=== PATIENT | female | born 1945 | race Caucasian/White ===

== ENCOUNTER → 2017-04-24 | Outpatient (CLI) | payer OTHER ==
--- NOTE | 2017-04-24 15:33 | DIAGNOSTIC IMAGING REPORT ---
RIGHT LOWER EXTREMITY VENOUS DOPPLER CLINICAL HISTORY: Right calf pain. COMPARISON STUDY: Right lower extremity venous Doppler January 08 2014. TECHNIQUE: Sonography of the deep venous system of the right lower extremity was performed. Compression and augmentation were evaluated. FINDINGS: The right common femoral, superficial femoral and popliteal veins were compressible. Augmentation was normal. Flow was shown within the deep calf vessels. Nonocclusive superficial thrombus is noted within the right lesser saphenous vein. When correlating with prior exam of January 08, 2014, this likely reflects chronic thrombus. This is likely partially calcified. IMPRESSION: 1. No evidence of deep venous thrombus within the right lower extremity. 2. Nonocclusive superficial thrombus within the right lesser saphenous vein which is likely chronic. Electronically signed by: Bertram Howell M.D. 04/24/2017 3:31 PM Dictated Date/Time: 04/24/2017 3:29 PM
== END | disposition home or self-care (01) ==
LOC: C.ULTRBC 15:01
PROVIDERS: ATTEND Internal Medicine
DX: M79.661 Pain in right lower leg (principal); I82.811 Embolism and thrombosis of superficial veins of right lower extremity

== ENCOUNTER → 2017-07-01 | Outpatient (CLI) | payer OTHER ==
--- NOTE | 2017-07-01 14:11 | MAMMOGRAPHY REPORT ---
BILATERAL DIGITAL SCREENING MAMMOGRAM TOMOSYNTHESIS WITH CAD: 07/01/2017 CLINICAL HISTORY: Routine screening. TECHNIQUE: Breast tomosynthesis in addition to standard 2D mammography was performed. Current study was also evaluated with a Computer Aided Detection (CAD) system. COMPARISON: Comparison is made to exams dated: 06/25/2016 mammogram, 06/19/2015 mammogram, 06/16/2014 mammogram, 06/15/2013 mammogram, 06/14/2012 mammogram, and 06/11/2011 mammogram - [facility]. BREAST COMPOSITION: There are scattered areas of fibroglandular density in both breasts. FINDINGS: There are benign rim calcifications and mild vascular calcifications in the breasts. Stab le asymmetry in the medial right breast, which appears similar on all available prior mammograms dati ng back to at least 2009, therefore likely benign. No new suspicious mass, architectural distortion or cluster of microcalcifications is seen. IMPRESSION: ACR BI-RADS CATEGORY 1: NEGATIVE There is no mammographic evidence of malignancy. A 1 year screening mammogram is recommended. The pa tient will receive written notification of the results. Approximately 10% of breast cancers are not detected with mammography. A negative mammographic report should not delay biopsy if a clinically suggestive mass is present. Monica Sparks M.D. ay/:07/01/2017 12:30:17 [employer]: Young BAH(R)(M), [facility] letter sent: Normal 1/2 BI-RADS Code: ACR BI-RADS Category 1: Negative
== END | disposition home or self-care (01) ==
LOC: C.MAMM 10:41
PROVIDERS: ATTEND Family Medicine
DX: Z12.31 Encounter for screening mammogram for malignant neoplasm of breast (principal)

== ENCOUNTER 2024-08-12 20:07 | Inpatient (IN) ==
[2024-08-12 20:46] LABS: Hematocrit (blood only) 38.3 % (37.0-47.0); Hemoglobin 13.2 g/dl (12.0-16.0); Mean Corpuscular Hemoglobin 29.3 pg (25.0-34.0); Mean Corpuscular Hgb Conc 34.5 g/dL (32.0-36.0); Mean Corpuscular Volume 84.9 fL (80.0-100.0); Mean Platelet Volume 10.8 fL (9.4-12.4); Platelet Count 272 K/uL (130-400); RDW Coefficient of Variation 13.1 % (11.5-14.5); RDW Standard Deviation 40.3 fL (36.4-46.3); Red Blood Count 4.51 M/uL (4.20-5.40); White Blood Count 20.17 K/ul (4.8-10.8)
[2024-08-12 20:57] LABS: Albumin Globulin Ratio 1.6 (0.9-2); Albumin Level 4.5 gm/dl (3.4-5.0); BUN Creatinine Ratio 21.7 (10-20); Bilirubin,Total 0.8 mg/dl (0.2-1.0); Creatinine Clr Calc Pharmacy 55.7 ml/min; Globulin 2.9 gm/dl (2.5-4.0); Potassium 3.8 mmol/L (3.5-5.1); Total Protein 7.4 gm/dl (6.0-8.3)
[2024-08-12 21:02] LABS: Basophils # (auto) 0.03 K/uL (0.00-0.20); Basophils % (auto) 0.1 %; Eosinophils # (auto) 0.05 K/uL (0.00-0.50); Eosinophils % (auto) 0.2 %; Immature Granulocytes # (auto) 0.05 K/uL (0.01-0.20); Immature Granulocytes % (auto) 0.2 %; Lymphocytes # (auto) 0.69 K/uL (1.20-3.40); Lymphocytes % (auto) 3.4 %; Monocytes # (auto) 0.91 K/uL (0.11-0.59); Monocytes % (auto) 4.5 %; Neutrophils # (auto) 18.44 K/uL (1.40-6.50); Neutrophils % (auto) 91.6 %
[2024-08-12 21:22] LABS: Partial Thromboplastin Ratio 0.9; Partial Thromboplastin Time 25 Seconds (21-31); Prothrombin Time 10.6 Seconds (9.0-12.0)
[2024-08-12 21:50] LABS: Magnesium 1.3 mg/dl (1.7-2.4)
[2024-08-12 21:54] LABS: Adenovirus PCR Not Detected (NotDetected); Bordetella parapertussis PCR Not Detected (NotDetected); Bordetella pertussis PCR Not Detected (NotDetected); Chlamydia pneumoniae PCR Not Detected (NotDetected); Coronavirus 229E PCR Not Detected (NotDetected); Coronavirus CoV-2 (COVID19)PCR DETECTED (NotDetected); Coronavirus HKU1 PCR Not Detected (NotDetected); Coronavirus NL63 PCR Not Detected (NotDetected); Coronavirus OC43PCR Not Detected (NotDetected); Human Metapneumovirus PCR Not Detected (NotDetected); Influenza A PCR Not Detected (NotDetected); Influenza B PCR Not Detected (NotDetected); Mycoplasma pneumoniae PCR Not Detected (NotDetected); Parainfluenza Virus 1 PCR Not Detected (NotDetected); Parainfluenza Virus 2 PCR Not Detected (NotDetected); Parainfluenza Virus 3 PCR Not Detected (NotDetected); Parainfluenza Virus 4 PCR Not Detected (NotDetected); Respiratory Syncytial VirusPCR Not Detected (NotDetected); Rhinovirus/Enterovirus PCR Not Detected (NotDetected)
[2024-08-12 22:06] LABS: Thyroid Stimulating Hormone 2.614 uIu/ml (0.300-4.500)
[2024-08-12] MEDS: FAMOTIDINE 20MG IV PUSH 20 MG/5 ML SYR IV STA (22:43)
[2024-08-12] MEDS: SODIUM CHLORIDE 0.9% 500 ML IV ONE (22:43)
[2024-08-12] MEDS: ONDANSETRON INJ 2 MG/ML 2 ML VIAL IV STA (22:43)
--- NOTE | 2024-08-12 22:48 | XRay Report ---
Exam(s): XR CXR 1 VIEW EXAM: XR Chest, 1 View CLINICAL HISTORY: Reason for exam: Chest pain, nonspecific. TECHNIQUE: Frontal view of the chest. COMPARISON: No relevant prior studies available. FINDINGS: Lungs: Unremarkable. No consolidation. Pleural space: Unremarkable. No pleural effusion or pneumothorax. Heart: Unremarkable. No cardiomegaly or pulmonary vascular congestion. Bones/joints: No acute fracture. No dislocation. IMPRESSION: No evidence of acute cardiopulmonary disease. Electronically signed by: Lani Lindquist M.D. 08/12/24 22:46 PM
[2024-08-12] MEDS: PIPERACILLIN/TAZOBACTAM 4.5 GM/100 ML BAG IV ONE (22:58)
--- NOTE | 2024-08-12 23:04 | Emergency Department Note ---
ED Visit Note The patient was seen and examined with saranya. I performed a substantive portion of all aspects of the medical decision making and agree with the h istory, physical and findings. Please see the note for disposition and details. . .
[2024-08-12] MEDS: OPTIRAY 320 125ml IV ONE (23:13)
--- NOTE | 2024-08-12 23:52 | Emergency Department Note ---
History of Present Illness General Chief complaint: Flu Like Symptoms Stated complaint: NAUSEA,COVID POSITIVE Time Seen by Provider: 08/12/24 21:28 History of Present Illness This 79-year-old female with a past medical history of hypothyroidism, acid reflux disease, hypercholesterolemia, hypertension and diabetes presents ER complaining cough, congestion for the past several days to develop nausea vomiting upset stomach tonight. Patient denies chest pain, diarrhea, headache. She felt sick to her stomach and came in. Home Medications Medication Instructions Recorded Confirmed Type aspirin 325 mg tablet 325 mg PO DAILY #30 tabs 11/01/20 11/01/20 Rx clobetasol 0.05 % scalp solution 1 applic topical BID 2 weeks #50 mL 11/01/20 11/01/20 Rx levothyroxine 75 mcg tablet 75 mcg PO QAM #90 tabs 11/01/20 11/01/20 Rx metformin 1,000 mg tablet 1,000 mg PO BID #180 tabs 11/01/20 11/01/20 Rx omeprazole 20 mg capsule,delayed 20 mg PO DAILY #90 caps 11/01/20 11/01/20 Rx release insulin human U-100 NPH-regulr 40 unit (0.4 mL) subcut BID 90 11/09/20 Rx 70-30 mix 100 unit/mL subcutaneous days #72 mL susp (Novolin 70/30 U-100 Insulin) lisinopril 20 1 tab PO DAILY #90 tabs 11/04/21 Rx mg-hydrochlorothiazide 25 mg tablet atorvastatin 40 mg tablet 40 mg PO HS #90 tabs 12/24/21 Rx Allergies Allergy/AdvReac Type Severity Reaction Status Date / Time sulfamethoxazole Allergy Hives Verified 11/01/20 14:52 Past Med/Surg History Problem List (Updated 08/13/24 @ 02:32 by Ifeoma Dumont PA-C) Leukocytosis (Acute) Nausea & vomiting (Acute) Hypomagnesemia (Acute) COVID-19 (Acute) Hypertension Diabetes Hypothyroidism Acid reflux Hypercholesteremia Medical History Diabetes Hypertension Surgical History History of cataract surgery S/P breast lumpectomy Family History Father Myocardial infarction Mother Ovarian cancer Denies family history of Colon cancer Prostate cancer Breast cancer Social History Smoking Status: Never smoker packs per day: 0.5; Second Hand Exposure: No; Do You Dip or Chew Tobacco: No; Hx Alcohol Use: No Hx Substance Use: No Preferred Language: Belarusian Visual Impairment: No Limitations Hearing Ability: Normal marital status: Single Current Living Situation: Other Current Living Situation Comment: Lives with a friend and ther 2 children current occupational status: employed and 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 Feels Safe at Home: Yes Dental Care, Regularly: Yes Physical Activity Frequency: 1-2 Times per Week Review of Systems A total of 10 systems reviewed and were otherwise negative Physical Exam Vital Signs Vital Signs - 24 hr 08/12/24 20:12 08/12/24 21:25 08/12/24 21:27 Temperature 37.0 C Temperature Source Oral Pulse Rate 122 H 111 H Pulse Rate [Apical] 112 H Pulse Rhythm [Apical] Pulse Strength [Apical] Respiratory Rate 16 24 Respiratory Effort / Characteristics Respiratory Depth Respiratory Pattern Blood Pressure 160/88 H Blood Pressure [Right Arm] 150/76 H Blood Pressure Mean 112 Blood Pressure Mean [Right Arm] 100 Blood Pressure Position [Right Arm] Semi-fowlers Pulse Oximetry 94 97 Oxygen Delivery Method Room Air Room Air Sepsis Recent Fever Within 48 Hours No Sepsis New/Unexplained Change in Mental Status No Sepsis Action Taken by Nursing No Action Required Oxygen Flow Rate - Titration Pulse Oximetry Post Tiitration 08/12/24 21:27 08/12/24 21:27 08/12/24 22:26 Temperature Temperature Source Pulse Rate 112 H Pulse Rate [Apical] 99 H Pulse Rhythm [Apical] Pulse Strength [Apical] Respiratory Rate 24 23 Respiratory Effort / Characteristics Respiratory Depth Respiratory Pattern Blood Pressure Blood Pressure [Right Arm] 170/74 H Blood Pressure Mean Blood Pressure Mean [Right Arm] 106 Blood Pressure Position [Right Arm] Semi-fowlers Pulse Oximetry 97 97 92 Oxygen Delivery Method Room Air Room Air Room Air Sepsis Recent Fever Within 48 Hours Sepsis New/Unexplained Change in Mental Status Sepsis Action Taken by Nursing Oxygen Flow Rate - Titration Pulse Oximetry Post Tiitration 08/12/24 23:02 08/13/24 00:00 08/13/24 01:32 Temperature Temperature Source Pulse Rate 91 H Pulse Rate [Apical] 92 H Pulse Rhythm [Apical] Regular Pulse Strength [Apical] Normal Respiratory Rate 18 Respiratory Effort / Characteristics Non-Labored Spontaneous Respiratory Depth Normal Respiratory Pattern Regular Blood Pressure Blood Pressure [Right Arm] 148/72 H Blood Pressure Mean Blood Pressure Mean [Right Arm] 97 Blood Pressure Position [Right Arm] Semi-fowlers Pulse Oximetry 87 L 95 Oxygen Delivery Method Room Air Room Air Sepsis Recent Fever Within 48 Hours Sepsis New/Unexplained Change in Mental Status Sepsis Action Taken by Nursing Oxygen Flow Rate - Titration 2 Pulse Oximetry Post Tiitration 95 08/13/24 02:00 Temperature Temperature Source Pulse Rate Pulse Rate [Apical] Pulse Rhythm [Apical] Regular Pulse Strength [Apical] Normal Respiratory Rate 18 Respiratory Effort / Characteristics Non-Labored Spontaneous Respiratory Depth Normal Respiratory Pattern Regular Blood Pressure Blood Pressure [Right Arm] 120/66 Blood Pressure Mean Blood Pressure Mean [Right Arm] 84 Blood Pressure Position [Right Arm] Semi-fowlers Pulse Oximetry 96 Oxygen Delivery Method Room Air Sepsis Recent Fever Within 48 Hours Sepsis New/Unexplained Change in Mental Status Sepsis Action Taken by Nursing Oxygen Flow Rate - Titration Pulse Oximetry Post Tiitration VITALS: Vitals are noted on the nurse's note and reviewed by myself. Vital signs stable. GENERAL: Pleasant female with friend present, in no acute distress, nondiaphoretic, well-developed well-nourished. SKIN: The skin was without rashes, erythema, edema, or bruising. There is no tenting of the skin. Capillary reflex less than 2 seconds. HEAD: Normocephalic atraumatic. EARS: External auditory canals clear EYES: Pupils equal round and reactive to light and accommodation. Conjunctivae without injection, sclerae without icterus. Extraocular movements intact. NOSE: Patent, no discharge. MOUTH: Mucous membranes moist. Pharynx without erythema or exudate. Uvula midline. Airway patent. Tongue does not deviate. NECK: Supple without nuchal rigidity. No lymphadenopathy. No thyromegaly. Cervical spine is nontender. No JVD. HEART: Regular rate and rhythm LUNGS: Clear to auscultation bilaterally without wheezes, rales or rhonchi. No retractions or accessory muscle use. ABDOMEN: Positive bowel sounds x 4. Normal tympanic percussion. Soft, nontender, without masses or organomegaly. Swann sign negative. No guarding or rebound tenderness. No CVA tenderness MUSCULOSKELETAL: No muscle atrophy, erythema, or edema noted. NEURO: Patient was alert and oriented to person place and time. Normal sensation to light and sharp touch. No focal neurological deficits. Course Administered Medications Discontinued Medications Famotidine (Pepcid 20mg Iv Push) 20 mg in 5 mls @ 2.5 mls/min IV NOW STA Stop: 08/12/24 21:45 Last Admin: 08/12/24 22:43 Dose: 2.5 mls/min Documented By: DEANNA Sodium Chloride (Nss) 500 mls @ 999 mls/hr IV .Q31M ONE Stop: 08/12/24 22:14 Last Infusion: 08/13/24 00:08 Dose: Infused Documented By: Admin: 08/12/24 22:43 Dose: 999 mls/hr Documented By: DEANNA Piperacillin Sod/Tazobactam Sod (Zosyn) 4.5 gm in 100 mls @ 200 mls/hr IV NOW ONE; Protocol Stop: 08/12/24 22:20 Last Infusion: 08/13/24 00:08 Dose: Infused Documented By: Admin: 08/12/24 22:58 Dose: 200 mls/hr Documented By: DEANNA Magnesium Sulfate/Dextrose (Magnesium Sulfate / D5w) 1 gm in 100 mls @ 100 mls/hr IV Q1H SUSAN Stop: 08/13/24 01:39 Last Infusion: 08/13/24 02:26 Dose: Infused Documented By: Admin: 08/13/24 01:26 Dose: 100 mls/hr Documented By: Infusion: 08/13/24 01:26 Dose: Infused Documented By: Admin: 08/13/24 00:22 Dose: 100 mls/hr Documented By: CHEMO Ioversol (Optiray 320 125ml) 119 ml IV ONCE ONE Stop: 08/12/24 23:14 Last Admin: 08/12/24 23:13 Dose: 119 ml Documented By: UVALDO Ondansetron HCl (Ondansetron Inj 2 Mg/Ml 2 Ml Vial) 4 mg IV NOW STA Stop: 08/12/24 21:45 Last Admin: 08/12/24 22:43 Dose: 4 mg Documented By: DEANNA Medical Decision Making Medical Records Attestation: I reviewed the patient's medical records. Home Medications Current Medication List: was personally reviewed by me Laboratory Data Attestation: I reviewed the patient's lab results. 08/12/24 20:25 08/12/24 20:25 Lab Results 08/12/24 08/12/24 Range/Units 20:25 22:51 WBC 20.17 H (4.8-10.8) K/ul RBC 4.51 (4.20-5.40) M/uL Hgb 13.2 (12.0-16.0) g/dl Hct 38.3 (37.0-47.0) % MCV 84.9 (80.0-100.0) fL MCH 29.3 (25.0-34.0) pg MCHC 34.5 (32.0-36.0) g/dL RDW Std Deviation 40.3 (36.4-46.3) fL RDW Coeff of Allie 13.1 (11.5-14.5) % Plt Count 272 (130-400) K/uL MPV 10.8 (9.4-12.4) fL Immature Gran % (Auto) 0.2 % Neut % (Auto) 91.6 % Lymph % (Auto) 3.4 % [place] % (Auto) 4.5 % Eos % (Auto) 0.2 % Baso % (Auto) 0.1 % Neut # (Auto) 18.44 H (1.40-6.50) K/uL Lymph # (Auto) 0.69 L (1.20-3.40) K/uL [place] # (Auto) 0.91 H (0.11-0.59) K/uL Eos # (Auto) 0.05 (0.00-0.50) K/uL Baso # (Auto) 0.03 (0.00-0.20) K/uL Immature Gran # (Auto) 0.05 (0.01-0.20) K/uL PT 10.6 (9.0-12.0) Seconds INR 1.0 (0.9-1.1) APTT 25 (21-31) Seconds PTT Ratio 0.9 Sodium 137 (136-145) mmol/L Potassium 3.8 (3.5-5.1) mmol/L Chloride 100 (98-107) mmol/L Carbon Dioxide 26 (21-32) mmol/L Anion Gap 11 (3-11) BUN 20 (6-23) mg/dl Creatinine 0.92 (0.6-1.2) mg/dl Est Cr Clr Drug Dosing 55.7 ml/min eGFR 63.73 BUN/Creatinine Ratio 21.7 H (10-20) Glucose 148 H (70-99(Fasting)) mg/dl Lactate 1.1 (0.4-2.0) mmol/L Calcium 9.0 (8.6-10.3) mg/dl Magnesium 1.3 L (1.7-2.4) mg/dl Total Bilirubin 0.8 (0.2-1.0) mg/dl AST 11 L (13-39) U/L ALT 11 (7-52) U/L Alkaline Phosphatase 82 (34-104) U/L Troponin I High Sens 4.0 (0-14) pg/ml Total Protein 7.4 (6.0-8.3) gm/dl Albumin 4.5 (3.4-5.0) gm/dl Globulin 2.9 (2.5-4.0) gm/dl Albumin/Globulin Ratio 1.6 (0.9-2) Procalcitonin 0.09 (0-0.5) ng/ml TSH 2.614 (0.300-4.500) uIu/ml Adenovirus (PCR) Not Detected (NotDetected) B. pertussis DNA (PCR) Not Detected (NotDetected) B.parapertussis DNA PCR Not Detected (NotDetected) C. pneumoniae DNA (PCR) Not Detected (NotDetected) Coronavirus OC43 (PCR) Not Detected (NotDetected) Coronavirus HKU1 (PCR) Not Detected (NotDetected) Coronavirus 229E (PCR) Not Detected (NotDetected) SARS-CoV-2 (PCR) DETECTED A (NotDetected) Coronavirus NL63 (PCR) Not Detected (NotDetected) Human Metapneumovir PCR Not Detected (NotDetected) Influenza Type A (PCR) Not Detected (NotDetected) Influenza Type B (PCR) Not Detected (NotDetected) M. pneumoniae (PCR) Not Detected (NotDetected) Parainfluenza 1 (PCR) Not Detected (NotDetected) Parainfluenza 2 (PCR) Not Detected (NotDetected) Parainfluenza 3 (PCR) Not Detected (NotDetected) Parainfluenza 4 (PCR) Not Detected (NotDetected) RSV (PCR) Not Detected (NotDetected) Entero/Rhino (PCR) Not Detected (NotDetected) Imaging Data Attestation: I personally reviewed and interpreted this imaging study as follows: Radiologist's Impression: Chest X-Ray 08/12/24 20:17 Exam(s): XR CXR 1 VIEW EXAM: XR Chest, 1 View CLINICAL HISTORY: Reason for exam: Chest pain, nonspecific. TECHNIQUE: Frontal view of the chest. COMPARISON: No relevant prior studies available. FINDINGS: Lungs: Unremarkable. No consolidation. Pleural space: Unremarkable. No pleural effusion or pneumothorax. Heart: Unremarkable. No cardiomegaly or pulmonary vascular congestion. Bones/joints: No acute fracture. No dislocation. IMPRESSION: No evidence of acute cardiopulmonary disease. Electronically signed by: Lani Lindquist M.D. 08/12/24 22:46 PM Abdomen/Pelvis CT 08/12/24 21:44 Exam(s): CT ABDOMEN + PELVIS With Contrast IV Amt: 119 ml opti 320 EXAM: CT Abdomen and Pelvis With Intravenous Contrast CLINICAL HISTORY: Reason for exam: mid abd pain. TECHNIQUE: Axial computed tomography images of the abdomen and pelvis with intravenous contrast. CTDI is 23.59 mGy and DLP is 1244.09 mGy-cm. Automated exposure control was utilized for the study. A dose lowering technique was utilized adhering to the principles of ALARA. CONTRAST: Patient received 119 ml opti 320 of IV contrast COMPARISON: No relevant prior studies available. FINDINGS: Lung bases: Unremarkable. No mass. No consolidation. ABDOMEN: Liver: Unremarkable. No mass. Gallbladder and bile ducts: The gallbladder is distended but nondilated. No pericholecystic inflammation is visible. The biliary tree is nondilated. There is a 3 mm calcification in the head of the pancreas. Pancreas: The pancreas is otherwise unremarkable. No pancreatic duct dilation or acute inflammation is seen. Spleen: Unremarkable. No splenomegaly. Adrenals: Unremarkable. No mass. Kidneys and ureters: Unremarkable. No solid mass. No hydronephrosis. Stomach and bowel: Unremarkable. No obstruction. No mucosal thickening. PELVIS: Appendix: No findings to suggest acute appendicitis. Bladder: Unremarkable. No mass. Reproductive: There is a 3.8 cm calcified fibroid in the uterus. ABDOMEN and PELVIS: Intraperitoneal space: Unremarkable. No free air. No significant fluid collection. Bones/joints: Mild to moderate degenerative changes in the spine. No acute fracture or subluxation is seen. Soft tissues: Unremarkable. Vasculature: The abdominal aorta is mildly calcified but nondilated. Lymph nodes: Unremarkable. No enlarged lymph nodes. IMPRESSION: The gallbladder is distended but nondilated. No pericholecystic inflammation is visible. The biliary tree is nondilated. There is a 3 mm calcification in the head of the pancreas. This could represent the calculus in the distal common bile duct versus chronic calcification from prior pancreatitis. No acute inflammation is currently visible. Electronically signed by: Kike Fonseca MD 08/13/24 02:05 AM Chest CTA 08/12/24 21:44 Exam(s): CTA CHEST IV Amt: 119 ml opti 320 EXAM: CT Angiography Chest With Intravenous Contrast CLINICAL HISTORY: Reason for exam: PE. TECHNIQUE: Axial computed tomographic angiography images of the chest with intravenous contrast. CTDI is 23.1 mGy and DLP is 769 mGy-cm. Automated exposure control was utilized for the study. A dose lowering technique was utilized adhering to the principles of ALARA. MIP reconstructed images were created and reviewed. COMPARISON: Chest x-ray from August 12, 2024 FINDINGS: Pulmonary arteries: The pulmonary arterial tree is well opacified with contrast. No pulmonary embolism is identified. Aorta: The heart is mildly enlarged. There is mild to moderate coronary calcification involving the LAD and mild aortic valvular calcification. No pericardial effusion. The thoracic aorta is mildly calcified but nondilated. There is no aneurysm or dissection. Lungs: Small amount of streaky atelectasis or infiltrate in the costophrenic angles bilaterally. The lungs are otherwise clear. No mass. Pleural space: Unremarkable. No significant effusion. No pneumothorax. Heart: Unremarkable. No cardiomegaly. No significant pericardial effusion. No evidence of RV dysfunction. Bones/joints: Mild to moderate degenerative changes in the mid to lower cervical spine. No acute fracture or destructive bone lesion is seen. No dislocation. Soft tissues: Unremarkable. Lymph nodes: Unremarkable. No enlarged lymph nodes. IMPRESSION: 1. Small amount of streaky atelectasis or infiltrate in the costophrenic angles bilaterally. The lungs are otherwise clear. 2. The pulmonary arterial tree is well opacified with contrast. No pulmonary embolism is identified. 3. The thoracic aorta is mildly calcified but nondilated. There is no aneurysm or dissection. Electronically signed by: Kike Fonseca MD 08/13/24 01:59 AM MDM Narrative Prior records/ancillary studies reviewed and summarized above. Nursing notes reviewed. Additional history obtained from family. The patient's history was concerning for generalized illness. Differential diagnosis: Etiologies such as metabolic, infection, hypo/hyperglycemia, electrolyte abnormalities, cardiac sources, intracerebral event, toxicologic, neurologic, as well as others were entertained. Physical examination: As above. ER treatment provided: IV Lock An order was placed for continuous cardiac monitoring. The monitor shows a rate of 60-100 with a sinus rhythm per my interpretation. IV fluids, Zosyn, magnesium On reassessment the patient felt better. Diagnostics interpretation by me: ECG: Ordered for weakness EKG: Normal sinus, normal intervals, no acute ST-T wave changes, rate of 117. Impression sinus tachycardia independently interpreted by myself The labs Independently Interpreted by myself revealed low magnesium this was replaced, leukocytosis Blood cultures pending Positive COVID Mild hyperglycemia that DKA, euthyroid, negative procalcitonin. Negative lactic Imaging studies: Imaging was reviewed and read by radiology Consultation: A consultation was placed with the hospitalist. The case was discussed and diagnostics were reviewed. The patient was evaluated in the ER for further treatment. Exam and history seem consistent with COVID with low magnesium with nausea vomiting feeling weak. Patient's magnesium was replaced as above. Medicine was consulted case discussed. She will be evaluated for admission. Imaging was negative. She was afebrile nontoxic. By the evaluation outlined above emergent etiologies such as cardiac sources, intracerebral event, toxologic, neurologic, abnormalities blood glucose, metabolic, as well as others were deemed relatively unlikely. The pt informed about the findings as listed above. All questions were answered and pleased with the treatment. The chart was completed utilizing [employer] voice recognition software. Grammatical errors, random word insertions, pronoun errors, and incomplete sentences are an occassional consequence of this system due to software limitations, ambient noise, and hardware issues. Any formal questions or concerns about the content, text, or information contained within the body of this dictation should be directly addressed to the physician assistant teaching professor for clarification. Impression & Plan COVID-19, Hypomagnesemia, Nausea & vomiting, Leukocytosis Discharge Plan Visit Data Chief Complaint: Flu Like Symptoms Stated Complaint: NAUSEA,COVID POSITIVE ED Provider: Vance Da Silva ED Midlevel Provider: Ifeoma Dumont Discharge Problem: COVID-19, Hypomagnesemia, Nausea & vomiting, Leukocytosis Patient Disposition: Admitted As Inpatient Condition: Good Forms Stand Alone Forms: [facility] [employer] Prescriptions Prescriptions: No Action Novolin 70/30 U-100 Insulin 100 unit/mL (70-30) suspension 40 unit subcut BID 90 Days Qty: 72 2RF Rx Instructions: INCREASE BY 2 UNITS EVERY WEEK lisinopril-hydrochlorothiazide 20-25 mg tablet 1 tab PO DAILY Qty: 90 0RF atorvastatin 40 mg tablet 40 mg PO HS Qty: 90 2RF clobetasol 0.05 % solution 1 applic topical BID 14 Days Qty: 50 5RF Rx Instructions: Then once a day for 2 weeks. aspirin 325 mg tablet 325 mg PO DAILY Qty: 30 5RF omeprazole 20 mg capsule,delayed release(DR/EC) 20 mg PO DAILY Qty: 90 2RF levothyroxine 75 mcg tablet 75 mcg PO QAM Qty: 90 2RF metformin 1,000 mg tablet 1,000 mg PO BID Qty: 180 2RF Referrals Referrals: Yadira Doss DO [Primary Care Provider] -
[2024-08-13] MEDS: MAGNESIUM SULFATE / D5W 1 GM/100 ML BAG IV SCH (00:22)
--- NOTE | 2024-08-13 02:00 | CT Scan Report ---
Exam(s): CTA CHEST IV Amt: 119 ml opti 320 EXAM: CT Angiography Chest With Intravenous Contrast CLINICAL HISTORY: Reason for exam: PE. TECHNIQUE: Axial computed tomographic angiography images of the chest with intravenous contrast. CTDI is 23.1 mGy and DLP is 769 mGy-cm. Automated exposure control was utilized for the study. A dose lowering technique was utilized adhering to the principles of ALARA. MIP reconstructed images were created and reviewed. COMPARISON: Chest x-ray from August 12, 2024 FINDINGS: Pulmonary arteries: The pulmonary arterial tree is well opacified with contrast. No pulmonary embolism is identified. Aorta: The heart is mildly enlarged. There is mild to moderate coronary calcification involving the LAD and mild aortic valvular calcification. No pericardial effusion. The thoracic aorta is mildly calcified but nondilated. There is no aneurysm or dissection. Lungs: Small amount of streaky atelectasis or infiltrate in the costophrenic angles bilaterally. The lungs are otherwise clear. No mass. Pleural space: Unremarkable. No significant effusion. No pneumothorax. Heart: Unremarkable. No cardiomegaly. No significant pericardial effusion. No evidence of RV dysfunction. Bones/joints: Mild to moderate degenerative changes in the mid to lower cervical spine. No acute fracture or destructive bone lesion is seen. No dislocation. Soft tissues: Unremarkable. Lymph nodes: Unremarkable. No enlarged lymph nodes. IMPRESSION: 1. Small amount of streaky atelectasis or infiltrate in the costophrenic angles bilaterally. The lungs are otherwise clear. 2. The pulmonary arterial tree is well opacified with contrast. No pulmonary embolism is identified. 3. The thoracic aorta is mildly calcified but nondilated. There is no aneurysm or dissection. Electronically signed by: Kike Fonseca MD 08/13/24 01:59 AM
--- NOTE | 2024-08-13 02:06 | CT Scan Report ---
Exam(s): CT ABDOMEN + PELVIS With Contrast IV Amt: 119 ml opti 320 EXAM: CT Abdomen and Pelvis With Intravenous Contrast CLINICAL HISTORY: Reason for exam: mid abd pain. TECHNIQUE: Axial computed tomography images of the abdomen and pelvis with intravenous contrast. CTDI is 23.59 mGy and DLP is 1244.09 mGy-cm. Automated exposure control was utilized for the study. A dose lowering technique was utilized adhering to the principles of ALARA. CONTRAST: Patient received 119 ml opti 320 of IV contrast COMPARISON: No relevant prior studies available. FINDINGS: Lung bases: Unremarkable. No mass. No consolidation. ABDOMEN: Liver: Unremarkable. No mass. Gallbladder and bile ducts: The gallbladder is distended but nondilated. No pericholecystic inflammation is visible. The biliary tree is nondilated. There is a 3 mm calcification in the head of the pancreas. Pancreas: The pancreas is otherwise unremarkable. No pancreatic duct dilation or acute inflammation is seen. Spleen: Unremarkable. No splenomegaly. Adrenals: Unremarkable. No mass. Kidneys and ureters: Unremarkable. No solid mass. No hydronephrosis. Stomach and bowel: Unremarkable. No obstruction. No mucosal thickening. PELVIS: Appendix: No findings to suggest acute appendicitis. Bladder: Unremarkable. No mass. Reproductive: There is a 3.8 cm calcified fibroid in the uterus. ABDOMEN and PELVIS: Intraperitoneal space: Unremarkable. No free air. No significant fluid collection. Bones/joints: Mild to moderate degenerative changes in the spine. No acute fracture or subluxation is seen. Soft tissues: Unremarkable. Vasculature: The abdominal aorta is mildly calcified but nondilated. Lymph nodes: Unremarkable. No enlarged lymph nodes. IMPRESSION: The gallbladder is distended but nondilated. No pericholecystic inflammation is visible. The biliary tree is nondilated. There is a 3 mm calcification in the head of the pancreas. This could represent the calculus in the distal common bile duct versus chronic calcification from prior pancreatitis. No acute inflammation is currently visible. Electronically signed by: Kike Fonseca MD 08/13/24 02:05 AM
--- NOTE | 2024-08-13 05:09 | History & Physical Report ---
Date of Service August 13, 2024 Assessment & Plan (1) COVID-19: Plan: 79-year-old female with past medical history significant for type 2 diabetes, dyslipidemia, hypothyroidism, hypertension, GERD, history of acquired esophageal ring, CKD stage III, comes because of nausea and found to have COVID and also hypomagnesia. Patient says since last Thursday she is having cold symptoms. She was feeling cold, initially couple of days had runny nose and started having cough. Denies any fever. And today she was feeling chills and nauseous and sick to her stomach and came to the ER. Denies any headache. No body ache. No blurred vision. No earache or runny nose or sore throat. Appetite is okay. Denies chest pain or shortness of breath. No abdominal pain. Normal bowel and bladder movements. Currently resting comfortably and hemodynamically stable. COVID Came with nausea and congestion Cough CTA chest okay CT abdomen pelvis questionable 3 mm distal CBD calculus versus chronic calcification from prior pancreatitis Will follow gallbladder ultrasound Gentle fluids COVID precautions Monitor oxygen saturations Hypomagnesia Magnesium 1.3 Replacing Follow repeat labs Leukocytosis Procalcitonin negative Follow repeat labs Type 2 diabetes Continue home Tresiba 8 units daily Hold metformin Sliding scale Will monitor Hypertension On losartan, chlorthalidone Will monitor Hyperlipidemia On statin Hypothyroidism On Synthyroid GERD On omeprazole CKD stage III Presented creatinine 0.9 Will follow repeat labs DVT prophylaxis Lovenox Disposition Med/telemetry Full code. History of Present Illness Chief Complaint: Nausea and COVID Primary Care Provider: Yadira Doss DO 79-year-old female with past medical history significant for type 2 diabetes, dyslipidemia, hypothyroidism, hypertension, GERD, history of acquired esophageal ring, CKD stage III, comes because of nausea and found to have COVID and also hypomagnesia. Patient says since last Thursday she is having cold symptoms. She was feeling cold, initially couple of days had runny nose and started having cough. Denies any fever. And today she was feeling chills and nauseous and sick to her stomach and came to the ER. Denies any headache. No body ache. No blurred vision. No earache or runny nose or sore throat. Appetite is okay. Denies chest pain or shortness of breath. No abdominal pain. Normal bowel and bladder movements. Currently resting comfortably and hemodynamically stable. Past med history. As mentioned above Past surgical history. Colonoscopy. Colonoscopy with biopsy. EGD with biopsy. Social history. Lives with a friend. Smoked 0.2 packs a day for 10 years. Alcohol rarely. No drug use. Family history. Mother had rectal cancer. Father had sudden MN at age 53. Allergies Allergy/AdvReac Type Severity Reaction Status Date / Time sulfamethoxazole Allergy Hives Verified 11/01/20 14:52 Home Medications Medication Instructions Recorded Confirmed Type atorvastatin 40 mg tablet 40 mg PO DAILY 08/13/24 08/13/24 History chlorthalidone 25 mg tablet 25 mg PO DAILY 08/13/24 08/13/24 History insulin aspart U-100 100 unit/mL 1 sliding scale dose subcut UD 08/13/24 08/13/24 History (3 mL) subcutaneous pen (Novolog FlexPen U-100 Insulin aspart) insulin degludec 100 unit/mL (3 8 unit subcut DAILY 08/13/24 08/13/24 History mL) subcutaneous pen (Tresiba FlexTouch U-100 insulin) levothyroxine 75 mcg tablet 75 mcg PO DAILY 08/13/24 08/13/24 History losartan 25 mg tablet 25 mg PO DAILY 08/13/24 08/13/24 History metformin 1,000 mg tablet 1,000 mg PO BID 08/13/24 08/13/24 History omeprazole 20 mg capsule,delayed 20 mg PO DAILY 08/13/24 08/13/24 History release Past Med/Surg History Problem List (Updated 08/13/24 @ 02:32 by Ifeoma Dumont PA-C) Leukocytosis (Acute) Nausea & vomiting (Acute) Hypomagnesemia (Acute) COVID-19 (Acute) Hypertension Diabetes Hypothyroidism Acid reflux Hypercholesteremia Medical History Diabetes Hypertension Surgical History History of cataract surgery S/P breast lumpectomy Family History Father Myocardial infarction Mother Ovarian cancer Denies family history of Colon cancer Prostate cancer Breast cancer Social History Smoking Status: Never smoker packs per day: 0.5; Second Hand Exposure: No; Do You Dip or Chew Tobacco: No; Hx Alcohol Use: No Hx Substance Use: No Preferred Language: Portuguese Visual Impairment: No Limitations Hearing Ability: Normal marital status: Single Current Living Situation: Other Current Living Situation Comment: Lives with a friend and ther 2 children current occupational status: employed 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 ENT- oropharynx clear Neck- supple, no JVD. Lungs- clear to auscultation no wheezing or crackles Heart- regular rate and rhythm; no murmur, no gallop. Abdomen- normal bowel sounds, soft, nontender, no distension Extremities- mild pretibial edema present, No erythema seen. Neuro- alert, oriented ; PERRL, no facial palsy; no dysarthria; moves extremities Results & Data Results & Data Vital Signs (Past 12 Hours) Vital Signs Temp Pulse Pulse Resp BP BP Pulse Ox 08/13/24 03:00 84 18 147/93 H 92 08/13/24 02:00 18 120/66 96 08/13/24 01:32 91 H 08/13/24 00:00 92 H 18 148/72 H 95 08/12/24 23:02 87 L 08/12/24 22:26 99 H 23 170/74 H 92 08/12/24 21:27 112 H 24 97 08/12/24 21:27 97 08/12/24 21:27 112 H 24 150/76 H 97 08/12/24 21:25 111 H 08/12/24 20:12 37.0 C 122 H 16 160/88 H 94 O2 Del Method 08/13/24 03:00 Room Air 08/13/24 02:00 Room Air 08/13/24 01:32 08/13/24 00:00 Room Air 08/12/24 23:02 Room Air 08/12/24 22:26 Room Air 08/12/24 21:27 Room Air 08/12/24 21:27 Room Air 08/12/24 21:27 Room Air 08/12/24 21:25 08/12/24 20:12 Room Air Diagnostic Findings Laboratory Results WBC 20.17 K/ul (4.8-10.8) H 08/12/24 20: RBC 4.51 M/uL (4.20-5.40) 08/12/24 20:25 Hgb 13.2 g/dl (12.0-16.0) 08/12/24: Hct 38.3 % (37.0-47.0) 08/12/24 20: MCV 84.9 fL (80.0-100.0) 08/12/24: MCH 29.3 pg (25.0-34.0) 08/12/24: MCHC 34.5 g/dL (32.0-36.0) 08/12/24: RDW Std Deviation 40.3 fL (36.4-46.3) 08/12/24: RDW Coeff of Allie 13.1 % (11.5-14.5) 08/12/24: Plt Count 272 K/uL (130-400) 08/12/24: MPV 10.8 fL (9.4-12.4) 08/12/24: Immature Gran % (Auto) 0.2 % 08/12/24: Neut % (Auto) 91.6 % 08/12/24: Lymph % (Auto) 3.4 % 08/12/24: Toole % (Auto) 4.5 % 08/12/24: Eos % (Auto) 0.2 % 08/12/24: Baso % (Auto) 0.1 % 08/12/24: Neut # (Auto) 18.44 K/uL (1.40-6.50) H 08/12/24: Lymph # (Auto) 0.69 K/uL (1.20-3.40) L 08/12/24: Toole # (Auto) 0.91 K/uL (0.11-0.59) H 08/12/24: Eos # (Auto) 0.05 K/uL (0.00-0.50) 08/12/24 20:25 Baso # (Auto) 0.03 K/uL (0.00-0.20) 08/12/24 20:25 Immature Gran # (Auto) 0.05 K/uL (0.01-0.20) 08/12/24 20:25 PT 10.6 Seconds (9.0-12.0) 08/12/24 20:25 INR 1.0 (0.9-1.1) 08/12/24 20:25 APTT 25 Seconds (21-31) 08/12/24 20:25 PTT Ratio 0.9 08/12/24 20:25 Sodium 137 mmol/L (136-145) 08/12/24 20: Potassium 3.8 mmol/L (3.5-5.1) 08/12/24: Chloride 100 mmol/L (98-107) 08/12/24 20:25 Carbon Dioxide 26 mmol/L (21-32) 08/12/24 20:25 Anion Gap 11 (3-11) 08/12/24 20:25 BUN 20 mg/dl (6-23) 08/12/24 20:25 Creatinine 0.92 mg/dl (0.6-1.2) 08/12/24 20: Est Cr Clr Drug Dosing 55.7 ml/min 08/12/24 20: eGFR 63.73 08/12/24 20:25 BUN/Creatinine Ratio 21.7 (10-20) H 08/12/24 20:25 Glucose 148 mg/dl (70-99(Fasting)) H 08/12/24 20:25 Lactate 1.1 mmol/L (0.4-2.0) 08/12/24 22:51 Calcium 9.0 mg/dl (8.6-10.3) 08/12/24 20:25 Magnesium 1.3 mg/dl (1.7-2.4) L 08/12/24 20:25 Total Bilirubin 0.8 mg/dl (0.2-1.0) 08/12/24 20:25 AST 11 U/L (13-39) L 08/12/24 20:25 ALT 11 U/L (7-52) 08/12/24 20:25 Alkaline Phosphatase 82 U/L (34-104) 08/12/24 20:25 Troponin I High Sens 4.0 pg/ml (0-14) 08/12/24 20:25 Total Protein 7.4 gm/dl (6.0-8.3) 08/12/24 20:25 Albumin 4.5 gm/dl (3.4-5.0) 08/12/24 20:25 Globulin 2.9 gm/dl (2.5-4.0) 08/12/24:25 Albumin/Globulin Ratio 1.6 (0.9-2) 08/12/24 20:25 Procalcitonin 0.09 ng/ml (0-0.5) 08/12/24 20:25 TSH 2.614 uIu/ml (0.300-4.500) 08/12/24 20:25 Adenovirus (PCR) Not Detected (NotDetected) 08/12/24 20:25 B. pertussis DNA (PCR) Not Detected (NotDetected) 08/12/24 20:25 B.parapertussis DNA PCR Not Detected (NotDetected) 08/12/24 20:25 C. pneumoniae DNA (PCR) Not Detected (NotDetected) 08/12/24 20:25 Coronavirus OC43 (PCR) Not Detected (NotDetected) 08/12/24 20:25 Coronavirus HKU1 (PCR) Not Detected (NotDetected) 08/12/24 20:25 Coronavirus 229E (PCR) Not Detected (NotDetected) 08/12/24 20:25 SARS-CoV-2 (PCR) DETECTED (NotDetected) A 08/12/24:25 Coronavirus NL63 (PCR) Not Detected (NotDetected) 08/12/24 20:25 Human Metapneumovir PCR Not Detected (NotDetected) 08/12/24 20:25 Influenza Type A (PCR) Not Detected (NotDetected) 08/12/24 20:25 Influenza Type B (PCR) Not Detected (NotDetected) 08/12/24 20:25 M. pneumoniae (PCR) Not Detected (NotDetected) 08/12/24 20:25 Parainfluenza 1 (PCR) Not Detected (NotDetected) 08/12/24 20:25 Parainfluenza 2 (PCR) Not Detected (NotDetected) 08/12/24 20:25 Parainfluenza 3 (PCR) Not Detected (NotDetected) 08/12/24 20:25 Parainfluenza 4 (PCR) Not Detected (NotDetected) 08/12/24 20:25 RSV (PCR) Not Detected (NotDetected) 08/12/24 20:25 Entero/Rhino (PCR) Not Detected (NotDetected) 08/12/24 20:25 Impressions Chest X-Ray 08/12/24 20:17 Exam(s): XR CXR 1 VIEW EXAM: XR Chest, 1 View CLINICAL HISTORY: Reason for exam: Chest pain, nonspecific. TECHNIQUE: Frontal view of the chest. COMPARISON: No relevant prior studies available. FINDINGS: Lungs: Unremarkable. No consolidation. Pleural space: Unremarkable. No pleural effusion or pneumothorax. Heart: Unremarkable. No cardiomegaly or pulmonary vascular congestion. Bones/joints: No acute fracture. No dislocation. IMPRESSION: No evidence of acute cardiopulmonary disease. Electronically signed by: Lani Lindquist M.D. 08/12/24 22:46 PM Abdomen/Pelvis CT 08/12/24 21:44 Exam(s): CT ABDOMEN + PELVIS With Contrast IV Amt: 119 ml opti 320 EXAM: CT Abdomen and Pelvis With Intravenous Contrast CLINICAL HISTORY: Reason for exam: mid abd pain. TECHNIQUE: Axial computed tomography images of the abdomen and pelvis with intravenous contrast. CTDI is 23.59 mGy and DLP is 1244.09 mGy-cm. Automated exposure control was utilized for the study. A dose lowering technique was utilized adhering to the principles of ALARA. CONTRAST: Patient received 119 ml opti 320 of IV contrast COMPARISON: No relevant prior studies available. FINDINGS: Lung bases: Unremarkable. No mass. No consolidation. ABDOMEN: Liver: Unremarkable. No mass. Gallbladder and bile ducts: The gallbladder is distended but nondilated. No pericholecystic inflammation is visible. The biliary tree is nondilated. There is a 3 mm calcification in the head of the pancreas. Pancreas: The pancreas is otherwise unremarkable. No pancreatic duct dilation or acute inflammation is seen. Spleen: Unremarkable. No splenomegaly. Adrenals: Unremarkable. No mass. Kidneys and ureters: Unremarkable. No solid mass. No hydronephrosis. Stomach and bowel: Unremarkable. No obstruction. No mucosal thickening. PELVIS: Appendix: No findings to suggest acute appendicitis. Bladder: Unremarkable. No mass. Reproductive: There is a 3.8 cm calcified fibroid in the uterus. ABDOMEN and PELVIS: Intraperitoneal space: Unremarkable. No free air. No significant fluid collection. Bones/joints: Mild to moderate degenerative changes in the spine. No acute fracture or subluxation is seen. Soft tissues: Unremarkable. Vasculature: The abdominal aorta is mildly calcified but nondilated. Lymph nodes: Unremarkable. No enlarged lymph nodes. IMPRESSION: The gallbladder is distended but nondilated. No pericholecystic inflammation is visible. The biliary tree is nondilated. There is a 3 mm calcification in the head of the pancreas. This could represent the calculus in the distal common bile duct versus chronic calcification from prior pancreatitis. No acute inflammation is currently visible. Electronically signed by: Kike Fonseca MD 08/13/24 02:05 AM Chest CTA 08/12/24 21:44 Exam(s): CTA CHEST IV Amt: 119 ml opti 320 EXAM: CT Angiography Chest With Intravenous Contrast CLINICAL HISTORY: Reason for exam: PE. TECHNIQUE: Axial computed tomographic angiography images of the chest with intravenous contrast. CTDI is 23.1 mGy and DLP is 769 mGy-cm. Automated exposure control was utilized for the study. A dose lowering technique was utilized adhering to the principles of ALARA. MIP reconstructed images were created and reviewed. COMPARISON: Chest x-ray from August 12, 2024 FINDINGS: Pulmonary arteries: The pulmonary arterial tree is well opacified with contrast. No pulmonary embolism is identified. Aorta: The heart is mildly enlarged. There is mild to moderate coronary calcification involving the LAD and mild aortic valvular calcification. No pericardial effusion. The thoracic aorta is mildly calcified but nondilated. There is no aneurysm or dissection. Lungs: Small amount of streaky atelectasis or infiltrate in the costophrenic angles bilaterally. The lungs are otherwise clear. No mass. Pleural space: Unremarkable. No significant effusion. No pneumothorax. Heart: Unremarkable. No cardiomegaly. No significant pericardial effusion. No evidence of RV dysfunction. Bones/joints: Mild to moderate degenerative changes in the mid to lower cervical spine. No acute fracture or destructive bone lesion is seen. No dislocation. Soft tissues: Unremarkable. Lymph nodes: Unremarkable. No enlarged lymph nodes. IMPRESSION: 1. Small amount of streaky atelectasis or infiltrate in the costophrenic angles bilaterally. The lungs are otherwise clear. 2. The pulmonary arterial tree is well opacified with contrast. No pulmonary embolism is identified. 3. The thoracic aorta is mildly calcified but nondilated. There is no aneurysm or dissection. Electronically signed by: Kike Fonseca MD 08/13/24 01:59 AM ECG Additional Comments: ECG. Sinus tachycardia rate of 117. No acute ST changes seen. QTc 474. Code Status & VTE Plan VTE Prophylaxis Plan VTE Prophylaxis will be ordered: Yes
[2024-08-13] MEDS: MAGNESIUM SULFATE / D5W 1 GM/100 ML BAG IV ONE (05:25)
--- OUTSIDE RECORDS SUMMARY | 2024-08-13 05:33 | External Medical Summary | Summary of Care ---
Author Name Unknown Organization [facility] Address [address] [place] [address] Phone [phone] Care Team Providers Care Payable Manager Name Role Phone DevanYadira michael Alejandro BLAND Primary Care Provider Encounter Details Date Type Department Care Team (Late st Contact Info) Description 08/02/2024 Population Health External Data Unspecified Department Allergies Active Allergy Reactions Criticality Noted Date Comments Sulfamethoxazole-Trimethoprim Hives Medium 2008 Hives documented as of this encounter (statuses as of 08/02/2024) Medications Clobetasol Propionate 0.05 % External Solution APPLY ONE APPLICATION TOPICALLY TWICE A DAY TO AFFECTED AREA(S) ON SCALP 1 Active Zoster Vac Recomb Adjuvanted 50 MCG/0.5ML Intramuscular Suspension Reconstituted (Shingrix)Indicat ions:Need for zoster vaccination Inject 0.5 mL into a large muscle now and repeat dose in 60 to 180 days 1 Each 1 2 Active Additional Information Patient not taking.Reported on 08/26/2023 FreeOrderAheadyle Litzy 2 [place] Device Use as directed. Supplied by [employer] Active FreeStyle Litzy 2 Sensor Use as directed. Change every 14 days. Supplied by [employer] ( ) Active FreeStyle Litzy 2 SensorIndications :Type 2 diabetes mellitus with hemoglobin A1c goal of less than 8.0% ([facility]) Use as directed. Change every 14 days. 2 Each 4 Active Omeprazole 20 MG Oral Capsule Delayed Release (PriLOSEC)Indicat ions:Esophageal ring, acquired TAKE 1 CAPSULE BY MOUTH ONCE DAILY 1 HOUR BEFORE THE FIRST MEAL OF THE DAY 90 Capsule 1 4 Active BD Pen Needle Rolanda 2nd Gen 32G X 4 MM (Insulin Pen Needle)Indication s:Type 2 diabetes mellitus with hemoglobin A1c goal of less than 8.0% (HCC) USE 4 TIMES DAILY 400 Each 3 4 Active metFORMIN HCl 1000 MG Oral Tablet (Glucophage)Indic ations:Type 2 diabetes mellitus with hemoglobin A1c goal of less than 8.0% (HCC) Take 1 tablet by mouth twice daily 180 Tablet 1 4 Active Atorvastatin Calcium 40 MG Oral Tablet (Lipitor)Indicati ons:Dyslipidemia, goal LDL below 100,Type 2 diabetes mellitus with hemoglobin A1c goal of less than 8.0% (HCC) TAKE 1 TABLET BY MOUTH IN THE MORNING 90 Tablet 2 4 Active Levothyroxine Sodium 75 MCG Oral TabletIndications :Hypothyroidism due to acquired atrophy of thyroid TAKE 1 TABLET BY MOUTH ONCE DAILY AT LEAST 30 MINUTES PRIOR TO BREAKFAST OR OTHER MEDS 90 Tablet 3 4 Active Tresiba FlexTouch 100 UNIT/ML Subcutaneous Solution Pen-injectorIndic ations:Type 2 diabetes mellitus with hemoglobin A1c goal of less than 8.0% (HCC) Inject 8 units under the skin once daily. 15 mL 4 4 Active NovoLOG FlexPen 100 UNIT/ML Subcutaneous Solution Pen-injector (insulin aspart)Indication s:Type 2 diabetes mellitus with hemoglobin A1c goal of less than 8.0% (HCC) Inject 8 units before breakfast, 10 units before lunch, and 12 units before supper plus CF of 1:30 over 150 following chart provided. Skip if skipping a meal. 45 mL 3 4 Active Chlorthalidone 25 MG Oral Tablet (Hygroton)Indicat ions:HTN, goal below 130/80 TAKE 1 TABLET BY MOUTH IN THE MORNING 30 Tablet 5 4 Active Losartan Potassium 25 MG Oral Tablet (Cozaar)Indicatio ns:HTN, goal below 130/80 Take 1 Tablet by mouth in the morning. 90 Tablet 5 Active documented as of this encounter (statuses as of 08/02/2024) Active Problems Problem Noted Date Diagnosed Date Age-related cataract of both eyes 10/17/2021 Polyp of ascending colon 02/21/2021 Overview (02/21/2021): 2018. Repeat colonoscopy in 5 yrs. Low bone density for age 0512/05/2020 Overview (12/05/2020): DEXA 11/2020. No Tx recommended. Repeat in 3 years. Chronic kidney disease, stage 3a 11/20/2020 Overview: Per CKD protocol Gastroesophageal reflux disease without esophagi tis 11/06/2020 HTN, goal below 130/80 09/17/2015 Overview: Per HTN Protocol #27. Hypothyroidism due to acquired atrophy of thyroi d 07/24/2015 Esophageal ring, acquired 03/14/2014 Dyslipidemia 06/21/2009 Overview (06/21/2009): Per Lipid Taxonomy. Type 2 diabetes mellitus wit h hemoglobin A1c goal of less than 8.0% 05/10/2009 Overview (11/06/2015): Per Diabetes Taxonomy. ICD-10 update of inactive term documented as of this encounter (statuses as of 08/02/2024) Resolved Problems Problem Noted Date Diagnosed Date Resolved Date History of colon polyps 05/05/2019 0401/2021 Melanocytic nevi of trunk 12/09/2012 History of dysplastic nevus 12/09/2012 11/06/2020 Neoplasm of uncertain behavior of skin 12/09/2012 11/24/2016 HTN, GOAL BELOW 140/80 03/01/201210/17 Overview: Per HTN Protocol #27. HTN, GOAL BELOW 130/80 08/08/200903/04 Overview (08/08/2009): Per HTN Taxonomy. ADVANCE DIRECTIVE INFORMATION 01/22/2006 11/06/2020 Overview (01/22/2006): Information given to patient BENIGN NEOPLASM LG BOWEL 09/09/200401/2010 Postmenopausal bleeding 01/11/200407/13 HTN, goal below 140/90 01/11/200408/08 Overview (08/08/2009): Per HTN Taxonomy. Type 2 diabetes mellitus wit h hemoglobin A1c goal of less than 7.0% 06/07/2002 05/10/2009 Overview (11/06/2015): Per Diabetes Taxonomy. ICD-10 update of inactive term Family history of colon cancer 12/10/2000 11/06/2020 Dyslipidemia, goal to be determined 12/10/2000 06/21/2009 Overview (06/21/2009): Per Lipid Taxonomy. Benign neoplasm of colon Overview (09/10/2006): repeat colonoscopy in 5 years documented as of this encounter (statuses as of 08/02/2024) Immunizations Name Administration Dates Next Due COVID-19 mRNA, LNP-s, No Pre serve, 2-Dose Series (Pfizer) 08/07/2020,07/17/2020 Pneumococcal Conjugate Vacc, 13 Valent (Prevnar) 05/24/2015 Pneumococcal Polysaccharide PPV23 (Pneumovax) 11/24/2016,05/19/2006 Seasonal Influenza Vac., MDV , IM, 0.5 mL (Fluzone) 04/30/2015,03/14/2014,05/13/2013,03/19,04/03/2010,04/19/2007,04/12/2006 Seasonal Influenza Virus Vac cine, Unspecified Formulation 05/03/2019,04/12/2018,03/13/2017,05/29,03/14/2014,05/13/2013,04/03/2010 ,03/30/2009,04/19/2007,04/12/2006 Seasonal Influenza, High Dos e, Trivalent, PF, IM (Fluzone HD) 05/03/2019 Seasonal Influenza, PF, 6 M & above, IM , (FluLaval or Fluzone) 04/12/2018,03/13/2017 Seasonal Influenza, Quadriva lent Hd, 65+ Yrs 04/23/2023 Seasonal Influenza, Talita romero, No Preserve, IM 05/29/2016 documented as of this encounter Social History Tobacco Use Types Packs/Day Years Used Date Smoking Tobacco: Former Cigarettes 0.2 10 Smokeless Tobacco: Never Alcohol Use Standard Drinks/Week Comments Yes 0 (1 standard drink = 0.6 oz pur e alcohol) rare social PHQ-2 Answer Date Recorded PHQ Adult Total Score 0 02/15/2024 Hunger Vital Sign Answer Date Recorded Within the past 12 months, y ou worried that your food would run out before you got the money to buy more. Never true 02/15/20 24 Within the past 12 months, t he food you bought just didn't last and you didn't have money to get more. Never true 02/15/2024 Childcare Answer Date Recorded Do you feel overwhelmed with taking care of a child, family member or friend? No 02/15/2024 Does your family need help f inding childcare? (Household - for ages 0-17 years) Not on file 02/15/2024 Clothing Answer Date Recorded Have you been unable to get clothing when it was really needed? No 02/15/2024 Is your family able to get c lothes or diapers when needed? (Household - for ages 0-17 years) Not on file 02/15/2024 Personal Safety Answer Date Recorded Do you feel unsafe or have concerns for your saf ety? No 02/15/2024 Do you have concerns for you r family's safety? (Household - for ages 0-17 years) Not on file 02/15/2024 Utilities Answer Date Recorded Do you have trouble paying y our heating, water, or electric bill? No 02/15/2024 Is your family able to pay t he heat, water, or electric bill? (Household - for ages 0-17 years) Not on file 02/15/2024 Does your family have access to good internet? (Household - for ages 0-17 years) Not on file 02/15/2024 Employment Status Answer Date Recorded Are you unemployed or without regular income? No 02/15/2024 Does the household have a re gular source of income? (Household - for ages 0-17 years) Not on file 02/15/2024 Social Connections Answer Date Recorded How often do you feel lonely or isolated from th ose around you? Never 02/15/2024 Financial Resource Strain Answer Date R ecorded Do you have any trouble payi ng for your medications, or do you think you might in the future? No 02/15/2024 Does your family have troubl e paying for medicine? (Household - for ages 0-17 years) Not on file 02/15/2024 Transportation Needs Answer Date Record ed Do you have trouble getting a ride to medical visits or work? (Adult - for ages 18 years and over) Not on file 02/15/2024 Does your family have a hard time getting a ride to doctors visits? (Household - for ages 0-17 years) Not on file 02/15/2024 Has lack of transportation k ept you from medical appointments, meetings, work, or from getting things needed for daily living? Check all that apply. No 02/15/2024 Do you (or your family) have trouble finding or paying for a ride (transportation)? (Household - for ages 0-17 years) Not on file 02/15/2024 Housing Stability Answer Date Recorded Do you currently live in a s helter or have no steady place to sleep at night? No 02/15/2024 Do you think you are at risk of becoming homeless? (Adult - for ages 18 years and over) Not on file 02/15/2024 Does your family worry about paying for your home or becoming homeless? (Household - for ages 0-17 years) Not on file 0 02/15/2024 Are you homeless or worried that you might be in the future? No 02/15/2024 Are you (or your family) rajeev eless or worried that you might be in the future? (Household - for ages 0-17 years) Not on file Food Insecurity Answer Date Recorded Do you need food for this week? No 02/15/2024 Are you able to get enough f ood for your family? (Household - for ages 0-17 years) Not on file 02/15/2024 Does your family need food t his week? (Household - for ages 0-17 years) Not on file 02/15/2024 Do you always have enough fo od for your family? (Household - for ages 0-17 years) Not on file 02/15/2024 Comments No Sex and Gender Information Value Date Recorded Sex Assigned at Female 08/14/2022 11:47 AM EST Legal Sex Female 6:00 AM EST Gender Identity Female 08/14/2022 11:47 AM EST Sexual Orientation Straight 08/14/2022 11 :47 AM EST documented as of this encounter Plan of Treatment Upcoming Encounters Date Type Department Care Team (Late st Contact Info) Description 08/09/2024 11:30 AM EST Office Visit Pharmacy, [place] [facility] [address] [facility] [place] [address] [facility] [address] [facility] [place], [place] [id number] 08/25/2024 9:30 AM EST Office Visit Family [facility], [place] [facility] [address] [place] [place] [phone] Yadira Doss, DO [address] [facility] [id number] Scheduled Procedures Name Priority Associated Diagnoses Date/Ti me ESOPHAGOGASTRODUODENOSCOPY ( EGD), FLEXIBLE, TRANSORAL, DIAGNOSTIC Recall Esophageal ring, acquired Gastroesophageal reflux disease without esophagitis COLONOSCOPY FLEXIBLE PROXIMAL DIAGNOSTIC Recall History of colon polyps Health Maintenance Due Date Last Done Comments Zoster Vaccines (1 of 2) 02/03/1996 Hepatitis B Vaccine (3 of 3 - 19+ 3-dose series) 04/12/2000 12/12/1999, 11/11/1999, 10/12/1999 Adult Wellness Visit 02/03/2012 DTap/Tdap Vaccines (2 - Td or Tdap) 08/30/2020 08/30/2010, 10/11/2001, 07/13/1994 Colonoscopy 05/04/2023 05/04/2018, 04/13, 02/07/2015, Additional history exists Diabetic Foot Exam 08/14/2023 08/14/2022, 0 11/19/2020, 05/17/2018, Additional history exists DXA Scan 12/05/2023 12/04/2020, 08/14, 03/20/2011, Additional history exists COVID-19 Vaccine ( season) 2024 08/07/2020, 07/17/2020 Influenza Vaccine (FLU shot) (#1) 2024 04/23/2023, 05/03/2019, 05/03/2019, Additional history exists GFR 08/17/2024 02/15/2024, 09/0 07/2022, 12/11/2022, Additional history exists B-12 08/26/2024 08/26/2023, 02/0 08/2022, 02/21/2021, Additional history exists CKD HGB USE SMARTSET 56198 08/26/202408/26, 08/14/2022, 02/21/2021, Additional history exists CKD PHOS USE SMARTSET 41161 08/26/2024 08/26/2023, 0 08/14/2022 HbA1c 12/28/2024 06/29/2024, 080 11/2023, 08/26/2023, Additional history exists Albumin/Creatinine Ratio 02/14/2025 024, 12/11/2022, 08/26/2021, Additional history exists Depression Screening 02/14/2025 02/15/2024 TSH 02/14/2025 02/15/2024, 06/0 07/2022, 01/03/2022, Additional history exists Diabetic Eye Exam 03/10/2025 03/10/2024, , 11/05/2023, Additional history exists Pneumococcal Vaccine: 50+ Years Completed 11/24/2016, 05/24/2015, 05/19/2006 RETIRED - COLONOSCOPY-EVERY 5 YRS AGES 18-100 Discontinued 05/04/2018, 05/04/2018, 02/07/2015, Additional history exists HPV (Gardasil) Vaccine Aged Out No lo nger eligible based on patient's age to complete this topic MENINGOCOCCAL (MENACTRA/MENVEO) Aged Out No longer eligible based on patient's age to complete this topic documented as of this encounter Medical Devices Not on filedocumented as of this encounter Advance Directives Documents on File Type Date Recorded 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
--- OUTSIDE RECORDS SUMMARY | 2024-08-13 05:33 | External Medical Summary | Summary of Care ---
Author Name Unknown Organization [facility] Address [address] [place] [address] Phone [phone] Care Team Providers Care Crm Analyst Name Role Phone Yadira Doss DO Primary Care Provider Reason for Visit * Reason Comments eRx-Medication Refill Encounter Details Date Type Department Care Team ([facility] st Contact Info) Description 07/12/2024 Refill [facility] [address] [place] [phone] Yadira Doss DO [address] [place] [address] HTN, goal below 130/80 Allergies Active Allergy Reactions Criticality Noted Date Comments Sulfamethoxazole-Trimethoprim Hives Medium 2008 Hives documented as of this encounter (statuses as of 07/16/2024) Medications Clobetasol Propionate 0.05 % External Solution APPLY ONE APPLICATION TOPICALLY TWICE A DAY TO AFFECTED AREA(S) ON SCALP 1 Active Zoster Vac Recomb Adjuvanted 50 MCG/0.5ML Intramuscular Suspension Reconstituted (Shingrix)Indicat ions:Need for zoster vaccination Inject 0.5 mL into a large muscle now and repeat dose in 60 to 180 days 1 Each 1 2 Active Additional Information Patient not taking.Reported on 08/26/2023 FreeStyle Litzy 2 [place] Device Use as directed. Supplied by [employer] Active FreeStyle Litzy 2 Sensor Use as directed. Change every 14 days. Supplied by [facility] [employer] ( ) Active FreeStyle Litzy 2 SensorIndications :Type 2 diabetes mellitus with hemoglobin A1c goal of less than 8.0% (HCC) Use as directed. Change every 14 days. [...] TIMES DAILY 400 Each 3 4 Active Losartan Potassium 25 MG Oral Tablet (Cozaar)Indicatio ns:HTN, goal below 130/80 Take 1 Tablet by mouth in the morning. 90 Tablet 4 Active metFORMIN HCl 1000 MG Oral [...] THE MORNING 30 Tablet 5 4 Active documented as of this encounter (statuses as of 07/16/2024) Active Problems Problem Noted Date Diagnosed Date [...] as of this encounter (statuses as of 07/16/2024) Resolved Problems Problem Noted Date Diagnosed Date Resolved Date History of colon polyps 05/05/201910/12 Melanocytic nevi of trunk 12/09/2012 History of [...] as of this encounter (statuses as of 07/16/2024) Immunizations Name Administration Dates Next Due COVID-19 [...] lent Hd, 65+ Yrs 04/23/2023 Seasonal Influenza, Quadriva lent, No Preserve, IM 05/29/2016 documented as of [...] AM EST documented as of this encounter Miscellaneous Notes * Telephone Encounter - Robin Guidry RN - 07/16/2024 9:21 AM ESTRefused Prescriptions: Disp Refills Losartan Potassium 25 MG Oral Tablet 90 Tab*0 Sig: Take 1 Tablet by mouth in the morning.Refused By: ROBIN GUIDRY for Refusal: Duplicate Request documented in this encounter Plan of Treatment Upcoming Encounters Date Type Department Care Team (Late st Contact Info) Description 08/09/2024 11:30 AM EST Office Visit Pharmacy, [facility] [place] [address] [phone] [facility] [address] [facility] [place] [id number] 08/25/2024 9:30 AM EST Office Visit Family Practice, [place] [phone] Yadira Doss DO [address] [id number] Scheduled Procedures Name Priority Associated Diagnoses Date/Ti [...] Additional history exists CKD HGB USE SMARTSET 68798 08/26/202408/26, 08/14/2022, 02/21/2021, Additional history exists CKD PHOS USE SMARTSET 05880 08/26/2024 08/26/2023, 0 08/14/2022 HbA1c 12/28/2024 06/29/2024, 08/0 11/2023, 08/26/2023, Additional history exists Albumin/Creatinine Ratio [...] Not on filedocumented as of this encounter Visit Diagnoses Diagnosis HTN, goal below 130/80 Unspecified essential hypertension documented in this encounter Advance Directives Documents on File Type Date Recorded 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
--- OUTSIDE RECORDS SUMMARY | 2024-08-13 05:33 | External Medical Summary | Summary of Care ---
Author Name Unknown Organization [facility] Address [address] [place] [address] Phone [phone] Care Team Providers Care Shipfitter Name Role Phone Yadira Doss DO Primary Care Provider Reason for Visit * Reason Onset Date Comments Med Request 07/16/2024 Encounter Details Date Type Department Care Team (Late st Contact Info) Description 07/16/2024 Telephone [facility] [address] [place] [address] Yadira Doss DO [address] [place] [id number] Med Request Allergies Active Allergy Reactions Criticality Noted Date Comments Sulfamethoxazole-Trimethoprim Hives Medium 2008 Hives documented as of this encounter (statuses as of 07/16/2024) Medications Clobetasol Propionate 0.05 % External Solution APPLY ONE APPLICATION TOPICALLY TWICE A DAY TO AFFECTED AREA(S) ON SCALP 11/17/19 21 Active Zoster Vac Recomb Adjuvanted 50 MCG/0.5ML Intramuscular Suspension Reconstituted (Shingrix)Indicat ions:Need for zoster vaccination Inject 0.5 mL into a large muscle now and repeat dose in 60 to 180 days 1 Each 1 03/24/20 22 Active Additional Information Patient not taking.Reported on 08/26/2023 FreeStyle Litzy 2 [place] Device Use as directed. Supplied by [employer] Active FreeStyle Litzy 2 Sensor Use as directed. Change every 14 days. Supplied by [employer] ( ) Active FreeStyle Litzy 2 SensorIndications :Type 2 diabetes mellitus with hemoglobin A1c goal of less than 8.0% (HCC) Use as directed. Change every 14 days. 2 Each 08/18/19 24 Active Omeprazole 20 MG Oral Capsule Delayed Release (PriLOSEC)Indicat ions:Esophageal ring, acquired TAKE 1 CAPSULE BY MOUTH ONCE DAILY 1 HOUR BEFORE THE FIRST MEAL OF THE DAY 90 Capsule 1 08/28/19 24 Active BD Pen Needle Rolanda 2nd Gen 32G X 4 MM (Insulin Pen Needle)Indication s:Type 2 diabetes mellitus with hemoglobin A1c goal of less than 8.0% (HCC) USE 4 TIMES DAILY 400 Each 3 08/31/19 24 Active metFORMIN HCl 1000 MG Oral Tablet (Glucophage)Indic ations:Type 2 diabetes mellitus with hemoglobin A1c goal of less than 8.0% (HCC) Take 1 tablet by mouth twice daily 180 Tablet 1 02/23/20 24 Active Atorvastatin Calcium 40 MG Oral Tablet (Lipitor)Indicati ons:Dyslipidemia, goal LDL below 100,Type 2 diabetes mellitus with hemoglobin A1c goal of less than 8.0% (HCC) TAKE 1 TABLET BY MOUTH IN THE MORNING 90 Tablet 2 03/22/20 24 Active Levothyroxine Sodium 75 MCG Oral TabletIndications :Hypothyroidism due to acquired atrophy of thyroid TAKE 1 TABLET BY MOUTH ONCE DAILY AT LEAST 30 MINUTES PRIOR TO BREAKFAST OR OTHER MEDS 90 Tablet 3 04/21/20 24 Active Tresiba FlexTouch 100 UNIT/ML Subcutaneous Solution Pen-injectorIndic ations:Type 2 diabetes mellitus with hemoglobin A1c goal of less than 8.0% (HCC) Inject 8 units under the skin once daily. 15 mL 4 05/16/20 24 Active NovoLOG FlexPen 100 UNIT/ML Subcutaneous Solution Pen-injector (insulin aspart)Indication s:Type 2 diabetes mellitus with hemoglobin A1c goal of less than 8.0% (HCC) Inject 8 units before breakfast, 10 units before lunch, and 12 units before supper plus CF of 1:30 over 150 following chart provided. Skip if skipping a meal. 45 mL 3 05/18/20 24 Active Chlorthalidone 25 MG Oral Tablet (Hygroton)Indicat ions:HTN, goal below 130/80 TAKE 1 TABLET BY MOUTH IN THE MORNING 30 Tablet 5 06/07/20 24 Active Losartan Potassium 25 MG Oral Tablet (Cozaar)Indicatio ns:HTN, goal below 130/80 Take 1 Tablet by mouth in the morning. 90 Tablet 07/16/19 25 Active Losartan Potassium 25 MG Oral Tablet (Cozaar)Indicatio ns:HTN, goal below 130/80 Take 1 Tablet by mouth in the morning. 90 Tablet 02/11/20 24 025 Discontin ued(Refil l) documented as of this encounter (statuses as [...] Date Resolved Date History of colon polyps 05/05/20192 01/2021 Melanocytic nevi of trunk 12/09/2012 History of [...] 02/15/2024 Does the household have a re lar source of income? (Household - for ages [...] Miscellaneous Notes * Telephone Encounter - Robin Silvestre RN - 07/16/2024 11:19 AM EST Called patient and informed her of Dr. Gutierrez's previous message. She verbalized understanding. * Telephone Encounter - Darcie Medina MD - 07/16/2024 10:53 AM EST Rx signed * Telephone Encounter - Robin Silvestre RN - 07/16/2024 9:22 AM EST Please see previous message. Did you pend patient's preferred pharmacy and medication before forwarding?yes Pharmacy: [facility] [address] [address] [address] Pending Prescriptions: Disp Refills Losartan Potassium 25 MG Oral Tablet (Coz*90 Tab*0 Sig: Take 1 Tablet by mouth in the morning. Last Visit: Visit date not found (in office), Visit date not found (telemedicine) Next Visit: 08/25/2024 If no future appointments scheduled, and last appointment is greater than a year ago, please schedule patient for a follow-up appointment Last date the medication was ordered: 02/11/2024 Is this request for a controlled substance?No Urine Drug Screen:No results found for this or any previous visit. Patient Phone Numbers Labs: Lab Results Component Value Date/Time CREAT 1.0 02/15/2024 09:04 AM CREAT 1.2 (H) 12/30/2018 08:52 AM CREAT 0.8 07/14/1996 04:00 PM POTASSIUM 4.4 02/15/2024 09:04 AM POTASSIUM 4.8 12/30/2018 08:52 AM POTASSIUM 4.0 07/14/1996 04:00 PM TSH 2.06 02/15/2024 09:04 AM TSH 3.77 12/30/2018 08:52 AM LDL 65 02/15/2024 09:04 AM LDL 70 12/30/2018 08:52 AM LDL 209. (HH) 07/14/1996 04:00 PM ALT 14 12/11/2022 10:40 AM ALT 17 12/30/2018 08:52 AM HGBA1C 9.1 (H) 06/29/2024 01:58 PM HGBA1C 7.4 (H) 06/20/2019 12:15 PM * Telephone Encounter - Richard Conroy OSA - 07/16/2024 9:08 AM EST Pt calling in stating that she is nearly all out of Losartan and the pharmacy told her that there was no refill sent in. She is requesting a refill to [facility] documented in this encounter Plan of Treatment Upcoming Encounters Date Type Department Care Team (Late st Contact Info) Description 08/09/2024 11:30 AM EST Office Visit Pharmacy, [address] [place] [phone] [facility] [address] [facility] [address] [phone] 08/25/2024 9:30 AM EST [facility] [address] [phone] Yadira Doss DO [address] [place] [address] Scheduled Procedures Name Priority Associated Diagnoses Date/Ti [...] 08/14, 03/20/2011, Additional history exists COVID-19 Vaccine (2023- season) 2024 08/07/2020, 07/17/2020 Influenza Vaccine (FLU shot) (#1) 2024 04/23/2023, 05/03/2019, 05/03/2019, Additional history exists GFR 08/17/2024 02/15/2024, 09/07/2022, 12/11/2022, Additional history exists B-12 08/26/2024 08/26/2023, 02/0 08/2022, 02/21/2021, Additional history exists CKD HGB USE SMARTSET 44548 08/26/202408/26, 08/14/2022, 02/21/2021, Additional history exists CKD PHOS USE SMARTSET 61923 08/26/2024 08/26/2023, 0 08/14/2022 HbA1c 12/28/2024 06/29/2024, 080 11/2023, 08/26/2023, Additional history exists Albumin/Creatinine Ratio 02/14/2025 024, 12/11/2022, 08/26/2021, Additional history exists Depression Screening 02/14/2025 02/15/2024 TSH 02/14/2025 02/15/2024, 060 07/2022, 01/03/2022, Additional history exists Diabetic Eye [...] Documents on File Type Date Recorded Patient Call Center Representative Expl anation Advance Directives and Living Will 10/21/2022 ADVANCE DIRECTIVE / LIVING WILL Power of City Plant Supervisor 10/21/2022 POWER OF A TTORNEY * No Code Status (Latest Code Status on File) Date Activated Date Inactivated Comments 01/11/2004 9:29 AM 01/11/2004 9:29 AM Care Teams Shipfitter Relationship Specialty Start Date End Date Yadira Doss DO PCP - General Family Medicine 08/14/22 documented as of this encounter
--- OUTSIDE RECORDS SUMMARY | 2024-08-13 05:33 | External Medical Summary | Summary of Care ---
Author Name Unknown Organization [facility] Address [address] [place] [address] Phone [phone] Care Team Providers Care Termination Clerk Name Role Phone DevanYadira michael Alejandro BLAND Primary Care Provider Reason for Visit * Reason Onset Date Comments Appointment 07/15/2024 Encounter Details Date Type Department Care Team (Late st Contact Info) Description 07/15/2024 Telephone Gastroenterology, [facility] [address] [place] [address] Collin Betancourt MD [address] [place] [address] Appointment Allergies Active Allergy Reactions Criticality Noted Date Comments Sulfamethoxazole-Trimethoprim Hives Medium 2008 Hives documented as of this encounter (statuses as of 07/27/2024) Medications Clobetasol Propionate 0.05 % External Solution [...] not taking.Reported on 08/26/2023 FreeStyle Litzy 2 [place] Device Use as directed. Supplied by [employer] Active FreeStyle Litzy 2 Sensor Use as directed. Change every 14 days. Supplied by [facility] [employer] ( ) Active FreeStyle Litzy 2 SensorIndications [...] as of this encounter (statuses as of 07/27/2024) Active Problems Problem Noted Date Diagnosed Date [...] as of this encounter (statuses as of 07/27/2024) Resolved Problems Problem Noted Date Diagnosed Date [...] as of this encounter (statuses as of 07/27/2024) Immunizations Name Administration Dates Next Due COVID-19 mRNA, LNP-s, No Pre serve, 2-Dose Series (WaveMAX) 08/07/2020,07/17/2020 Hepatitis B, 20+ yrs 12/12/1999,11/11/1999,10/11 Pneumococcal Conjugate Vacc, 13 Valent (Prevnar) 05/24/2015 [...] Influenza, Quadriva lent, No Preserve, IM 05/29/2016 TD - Tetanus/Diptheria (ADULT) 10/11/2001,1994 TDAP, Age 7 and older, IM (Adacel) 08/30/2010 documented as of this encounter Social History [...] encounter Miscellaneous Notes * Telephone Encounter - Adriana Jaeger OSA - 07/27/2024 1:30 PM EST Lmm Letter sent via my chart BHARTI Chappell 07/27/2024 1:30 PM * Telephone Encounter - Hillary Plata OSA - 07/15/2024 12:20 PM EST Received an order for a colonoscopy. Called patient and lmm documented in this encounter Plan of Treatment Upcoming Encounters Date Type Department Care Team (Late st Contact Info) Description 08/09/2024 11:30 AM EST Office Visit Pharmacy, [address] [place] [phone] [facility] [address] [place] [address] 08/25/2024 9:30 AM EST Office Visit [facility] [place] [place] [address] [place] [phone] Yadira Doss DO [address] [place] [address] Scheduled Procedures Name Priority Associated Diagnoses Date/Ti [...] 05/03/2019, Additional history exists GFR 08/17/2024 02/15/2024, 07/2022, 12/11/2022, Additional history exists B-12 08/26/2024 08/26/2023, 08/2022, 02/21/2021, Additional history exists CKD HGB USE SMARTSET 69780 08/26/202408/26, 08/14/2022, 02/21/2021, Additional history exists CKD PHOS USE SMARTSET 73457 08/26/2024 08/26/2023, 0 08/14/2022 HbA1c 12/28/2024 06/29/2024, [...] Documents on File Type Date Recorded Patient Client Support Coordinator Expl anation Advance Directives and Living Will 10/21/2022 ADVANCE DIRECTIVE / LIVING WILL Power of Finishing Range Operator 10/21/2022 POWER OF A TTORNEY * No Code Status (Latest Code Status on File) Date Activated Date Inactivated Comments 01/11/2004 9:29 AM 01/11/2004 9:29 AM Care Teams Termination Clerk Relationship Specialty Start Date End Date Yadira Doss DO PCP - General Family Medicine 08/14/22 documented as of this encounter
--- OUTSIDE RECORDS SUMMARY | 2024-08-13 05:34 | External Medical Summary | Summary of Care ---
Author Name Unknown Organization [facility] Address [address] [place] [address] Phone [phone] Care Team Providers Care Breakfast Manager Name Role Phone Charity Harris DO Primary Care Provider [phone] Reason for Visit * Reason Onset Date Comments Medication Refill 05/17/2024 Encounter Details Date Type Department Care Team (Late st Contact Info) Description 05/17/2024 Refill [facility] [address] [place] [address] Charity Harris DO [address] [place] [address] Type 2 diabetes mellitus with hemoglobin A1c goal of less than 8.0% ([facility]) Allergies Active Allergy Reactions Criticality Noted Date Comments Sulfamethoxazole-Trimethoprim Hives Medium 2008 Hives documented as of this encounter (statuses as of 05/18/2024) Medications Medication Sig Dispensed Refills Start Date End Date Status Clobetasol Propionate 0.05 % External Solution APPLY ONE APPLICATION TOPICALLY TWICE A DAY TO AFFECTED AREA(S) ON SCALP 11/16/2020 Active Zoster Vac Recomb Adjuvanted 50 MCG/0.5ML Intramuscular Suspension Reconstituted (Shingrix)Indicati ons:Need for zoster vaccination Inject 0.5 mL into a large muscle now and repeat dose in 60 to 180 days 1 Each 1 03/24/2022 Active Additional Information Patient not taking.Reported on 08/26/2023 FreeStyle Litzy 2 [place] Device Use as directed. Supplied by [employer] Active FreeStyle Litzy 2 Sensor Use as directed. Change every 14 days. Supplied by [facility] [employer] ( ) Active FreeStyle Litzy 2 SensorIndications: Type 2 diabetes mellitus with hemoglobin A1c goal of less than 8.0% (HCC) Use as directed. Change every 14 days. 2 Each 08/18/2023 Active Omeprazole 20 MG Oral Capsule Delayed Release (PriLOSEC)Indicati ons:Esophageal ring, acquired TAKE 1 CAPSULE BY MOUTH ONCE DAILY 1 HOUR BEFORE THE FIRST MEAL OF THE DAY 90 Capsule 1 08/28/2023 Active BD Pen Needle Rolanda 2nd Gen 32G X 4 MM (Insulin Pen Needle)Indications :Type 2 diabetes mellitus with hemoglobin A1c goal of less than 8.0% (HCC) USE 4 TIMES DAILY 400 Each 3 08/31/2023 Active Chlorthalidone 25 MG Oral Tablet (Hygroton)Indicati ons:HTN, goal below 130/80 TAKE 1 TABLET BY MOUTH IN THE MORNING 30 Tablet 5 12/02/2023 Active Losartan Potassium 25 MG Oral Tablet (Cozaar)Indication s:HTN, goal below 130/80 Take 1 Tablet by mouth in the morning. 90 Tablet 02/11/2024 Active metFORMIN HCl 1000 MG Oral Tablet (Glucophage)Indica tions:Type 2 diabetes mellitus with hemoglobin A1c goal of less than 8.0% (HCC) Take 1 tablet by mouth twice daily 180 Tablet 1 02/23/2024 Active Atorvastatin Calcium 40 MG Oral Tablet (Lipitor)Indicatio ns:Dyslipidemia, goal LDL below 100,Type 2 diabetes mellitus with hemoglobin A1c goal of less than 8.0% (HCC) TAKE 1 TABLET BY MOUTH IN THE MORNING 90 Tablet 2 03/22/2024 Active Levothyroxine Sodium 75 MCG Oral TabletIndications: Hypothyroidism due to acquired atrophy of thyroid TAKE 1 TABLET BY MOUTH ONCE DAILY AT LEAST 30 MINUTES PRIOR TO BREAKFAST OR OTHER MEDS 90 Tablet 3 04/21/2024 Active Tresiba FlexTouch 100 UNIT/ML Subcutaneous Solution Pen-injectorIndica tions:Type 2 diabetes mellitus with hemoglobin A1c goal of less than 8.0% (HCC) Inject 8 units under the skin once daily. 15 mL 4 05/16/2024 Active NovoLOG FlexPen 100 UNIT/ML Subcutaneous Solution Pen-injector (insulin aspart)Indications :Type 2 diabetes mellitus with hemoglobin A1c goal of less than 8.0% (HCC) Inject 8 units before breakfast, 10 units before lunch, and 12 units before supper plus CF of 1:30 over 150 following chart provided. Skip if skipping a meal. 45 mL 3 05/18/2024 Active NovoLOG FlexPen 100 UNIT/ML Subcutaneous Solution Pen-injector (insulin aspart)Indications :Type 2 diabetes mellitus with hemoglobin A1c goal of less than 8.0% (HCC) Inject 8 units before breakfast, 10 units before lunch, and 12 units before supper plus CF of 1:30 over 150 following chart provided. Skip if skipping a meal. 45 mL 3 09/15/2023 Discontinue d(Refill) documented as of this encounter (statuses as of 05/18/2024) Active Problems Problem Noted Date Diagnosed Date Age-related cataract of both eyes 10/17/2021 Polyp of ascending colon 02/21/2021 Overview: 2018. Repeat colonoscopy in 5 yrs. Low bone density for age 0512/05/2020 Overview: DEXA 11/2020. No Tx recommended. Repeat in 3 years. Chronic kidney disease, stage 3a 11/20/2020 Overview: Per CKD protocol Gastroesophageal reflux disease without esophagi tis 11/06/2020 HTN, goal below 130/80 09/17/2015 Overview: Per HTN Protocol #27. 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 Type 2 diabetes mellitus wit h hemoglobin A1c goal of less than 8.0% 05/10/2009 Overview: Per Diabetes Taxonomy. ICD-10 update of inactive term documented as of this encounter (statuses as of 05/18/2024) Resolved Problems Problem Noted Date Diagnosed Date Resolved Date History of colon polyps 05/05/2019 04/2 01/2021 Melanocytic nevi of trunk 12/09/2012 History of dysplastic nevus 12/09/2012 11/06/2020 Neoplasm of uncertain behavior of skin 12/09/2012 11/24/2016 HTN, GOAL BELOW 140/80 03/01/201210/17 Overview: Per HTN Protocol #27. HTN, GOAL BELOW 130/80 08/08/200903/04 Overview: Per HTN Taxonomy. ADVANCE DIRECTIVE INFORMATION 01/22/2006 11/06/2020 Overview: Information given to patient BENIGN NEOPLASM LG BOWEL 09/09/200401/2010 Postmenopausal bleeding 01/11/200407/13 HTN, goal below 140/90 01/11/200408/08 Overview: Per HTN Taxonomy. Type 2 diabetes mellitus wit h hemoglobin A1c goal of less than 7.0% 06/07/2002 05/10/2009 Overview: Per Diabetes Taxonomy. ICD-10 update of inactive term Family history of colon cancer 12/10/2000 11/06/2020 Dyslipidemia, goal to be determined 12/10/2000 06/21/2009 Overview: Per Lipid Taxonomy. Benign neoplasm of colon Overview: repeat colonoscopy in 5 years documented as of this encounter (statuses as of 05/18/2024) Immunizations Name Administration Dates Next Due COVID-19 [...] ages 0-17 years) Not on file 02/15/2024 Sex and Gender Information Value Date Recorded Sex Assigned at Female 08/14/2022 11:47 AM EST Gender Identity Female 08/14/2022 11:47 AM EST Sexual Orientation Straight 08/14/2022 11 :47 AM EST Job Start Date Occupation Industry Not on file Not on file Not on file documented as of this encounter Miscellaneous Notes * Telephone Encounter - Charity Harris DO - 05/18/2024 8:18 AM ESTSigned Prescriptions: Disp Refills NovoLOG FlexPen 100 UNIT/ML Subcutaneous S*45 mL 3 Sig: Inject 8 units before breakfast, 10 units before lunch, and 12 units before supper plus CF of 1:30 over 150 following chart provided. Skip if skipping a meal. Authorizing Provider: CHARITY HARRIS --- * Telephone Encounter - Lisa Palmer LPN - 05/17/2024 11:33 AM EST Did you pend patient's preferred pharmacy and medication before forwarding?yes Pharmacy: [facility] [address] [address] [address] Pending Prescriptions: Disp Refills NovoLOG FlexPen 100 UNIT/ML Subcutaneous *45 mL 3 Sig: Inject 8 units before breakfast, 10 units before lunch, and 12 units before supper plus CF of 1:30 over 150 following chart provided. Skip if skipping a meal. Last Visit: 02/15/2024 (in office), Visit date not found (telemedicine) Next Visit: Visit date not found If no future appointments scheduled, and last appointment is greater than a year ago, please schedule patient for a follow-up appointment Last date the medication was ordered: 09/15/2023 Is this request for a controlled substance?No [...] AM ALT 17 12/30/2018 08:52 AM HGBA1C 8.5 (H) 02/15/2024 09:04 AM HGBA1C 7.4 (H) 06/20/2019 12:15 PM documented in this encounter Plan of Treatment Upcoming Encounters Date Type Department Care Team (Late st Contact Info) Description 06/29/2024 2:00 PM EST Office Visit Pharmacy, [place] [facility] [address] [facility] [address] [place] [address] 08/25/2024 9:30 AM EST Office Visit [facility] [address] [place] [address] Charity Harris, [address] [place] [address] Scheduled Procedures Name Priority Associated Diagnoses Date/Ti me COLONOSCOPY FLEXIBLE PROXIMAL DIAGNOSTIC Recall History of [...] 02/15/2024, 09/0 07/2022, 12/11/2022, Additional history exists HbA1c 08/17/2024 02/15/2024, 0210/2023, 03/13/2023, Additional history exists B-12 08/26/2024 08/26/2023, 02/0 08/2022, 02/21/2021, Additional history exists CKD HGB USE SMARTSET 10572 08/26/202408/26, 08/14/2022, 02/21/2021, Additional history exists CKD PHOS USE SMARTSET 95264 08/26/2024 08/26/2023, 0 08/14/2022 Albumin/Creatinine Ratio 02/14/2025 024, 12/11/2022, 08/26/2021, Additional history exists Depression Screening 02/14/2025 02/15/2024 TSH 02/14/2025 02/15/2024, 06/0 07/2022, 01/03/2022, Additional history exists Diabetic Eye Exam 03/10/2025 03/10/2024, , 11/05/2023, Additional history exists Pneumococcal Vaccine: 65+ Years Completed 11/24/2016, 05/24/2015, 05/19/2006 RETIRED - [...] as of this encounter Visit Diagnoses Diagnosis Type 2 diabetes mellitus with hemoglobin A1c goal of less than 8.0% (HCC) documented in this encounter Advance Directives Documents on File Type Date Recorded Patient Copy Writer Expl anation Advance Directives and Living Will 10/21/2022 ADVANCE DIRECTIVE / LIVING WILL Power of Machine Adjuster 10/21/2022 POWER OF A TTORNEY * No Code Status (Latest Code Status on File) Date Activated Date Inactivated Comments 01/11/2004 9:29 AM 01/11/2004 9:29 AM Care Teams Breakfast Manager Relationship Specialty Start Date End Date Charity Harris DO [address] [place] [address] PCP - General Family Medicine 08/14/22 documented as of this encounter
--- OUTSIDE RECORDS SUMMARY | 2024-08-13 05:34 | External Medical Summary | Summary of Care ---
Author Name Unknown Organization [facility] Address [address] [place] [address] Phone [phone] Care Team Providers Care Veterinary Science Teacher Name Role Phone Yadira Doss DO Primary Care Provider Reason for Visit * Reason Onset Date Comments Appointment 07/12/2024 Encounter Details Date Type Department Care Team ([facility] st Contact Info) Description 07/12/2024 Telephone Care at Home [address] [place], [place] [phone] Roxanne Watson, BHARTI [address], [place] [phone] Appointment Allergies Active Allergy Reactions Criticality Noted Date Comments Sulfamethoxazole-Trimethoprim Hives Medium 2008 Hives documented as of this encounter (statuses as of 07/12/2024) Medications Clobetasol Propionate 0.05 % External Solution APPLY ONE APPLICATION TOPICALLY TWICE A DAY TO AFFECTED AREA(S) ON SCALP 1 Active Zoster Vac Recomb Adjuvanted 50 MCG/0.5ML Intramuscular Suspension Reconstituted (Shingrix)Indicat ions:Need for zoster vaccination Inject 0.5 mL into a large muscle now and repeat dose in 60 to 180 days 1 Each 1 2 Active Additional Information Patient not taking.Reported on 08/26/2023 [employer] 2 [place] Device Use as directed. Supplied by [employer] Active Palmyle Litzy 2 Sensor Use as directed. Change every 14 days. Supplied by [employer] ( ) Active FreeStyle Litzy 2 SensorIndications [...] as of this encounter (statuses as of 07/12/2024) Active Problems Problem Noted Date Diagnosed Date [...] as of this encounter (statuses as of 07/12/2024) Resolved Problems Problem Noted Date Diagnosed Date Resolved Date History of colon polyps 05/05/2019 04/01/2021 Melanocytic nevi of trunk 12/09/2012 History of [...] as of this encounter (statuses as of 07/12/2024) Immunizations Name Administration Dates Next Due COVID-19 [...] encounter Miscellaneous Notes * Telephone Encounter - Roxanne Watson OSA - 07/12/2024 11:33 AM EST Care At Home Outreach Call attempt: 1st Call Call result: Call Unsuccessful - Left a voice mail Looking to schedule patient for AWV with Ramya Poon PA-C Can offer: HV 07/19/24 or 07/21/24 Provided call back number of [phone] BHARTI Alan documented in this encounter Plan of Treatment Upcoming Encounters Date Type Department Care Team (Late st Contact Info) Description 08/09/2024 11:30 AM EST Office Visit Pharmacy, [place] [address] [place] [phone] [facility] [address] [place] [address] [place] [address] 08/25/2024 9:30 AM EST Office Visit Family Practice, [facility] [address] [place] [address] [place] [phone] Yadira Doss DO [address] [facility] [place] [address] Scheduled Procedures Name Priority Associated Diagnoses Date/Ti [...] Additional history exists CKD HGB USE SMARTSET 43456 08/26/202408/26, 08/14/2022, 02/21/2021, Additional history exists CKD PHOS USE SMARTSET 80569 08/26/2024 08/26/2023, 0 08/14/2022 HbA1c 12/28/2024 06/29/2024, [...] Documents on File Type Date Recorded Patient Electric Motor Assembler Expl anation Advance Directives and Living Will 10/21/2022 ADVANCE DIRECTIVE / LIVING WILL Power of Wall Covering Installer 10/21/2022 POWER OF A TTORNEY * No Code Status (Latest Code Status on File) Date Activated Date Inactivated Comments 01/11/2004 9:29 AM 01/11/2004 9:29 AM Care Teams Veterinary Science Teacher Relationship Specialty Start Date End Date Yadira Doss DO PCP - General Family Medicine 08/14/22 documented as of this encounter
--- OUTSIDE RECORDS SUMMARY | 2024-08-13 05:34 | External Medical Summary ---
Author Name Unknown Address Unknown Organization : Laboratory Report Ordering Provider Test Date Status NICHOL PEREZ 06/29/2024 13:58:35 Final Observation Date Value Abnormality Reference (Units ) Status HbA1C 06/29/2024 13:58:35 9.1 Above high normal 4. 0-5.6 (%) Final Performing Location
--- OUTSIDE RECORDS SUMMARY | 2024-08-13 05:34 | External Medical Summary | Summary of Care ---
Author Name Unknown Organization [facility] Address [address] [place] [address] Phone [phone] Care Team Providers Care Metallography Teacher Name Role Phone Charity Doss DO Primary Care Provider Reason for Visit * Reason Comments eRx-Medication Refill Encounter Details Date Type Department Care Team (Late st Contact Info) Description 06/05/2024 Refill [facility] [address] [place] [address] Charity Doss DO [address] [place] [id number] HTN, goal below 130/80 Allergies Active Allergy Reactions Criticality Noted Date Comments Sulfamethoxazole-Trimethoprim Hives Medium 2008 Hives documented as of this encounter (statuses as of 06/07/2024) Medications Clobetasol Propionate 0.05 % External Solution APPLY ONE APPLICATION TOPICALLY TWICE A DAY TO AFFECTED AREA(S) ON SCALP 11/17/19 21 Active Zoster Vac Recomb Adjuvanted 50 MCG/0.5ML Intramuscular Suspension Reconstituted (Shingrix)Indica tions:Need for zoster vaccination Inject 0.5 mL into a large muscle now and repeat dose in 60 to 180 days 1 Each 1 03/24/20 22 Active Additional Information Patient not taking.Reported on 08/26/2023 FreeStyle Litzy 2 [place] Device Use as directed. Supplied by [employer] Active FreeStyle Litzy 2 Sensor Use as directed. Change every 14 days. Supplied by [facility] [employer] ([phone]) Active FreeStyle Litzy 2 SensorIndication s:Type 2 diabetes mellitus with hemoglobin A1c goal of less than 8.0% (HCC) Use as directed. Change every 14 days. 2 Each 08/18/19 24 Active Omeprazole 20 MG Oral Capsule Delayed Release (PriLOSEC)Indica tions:Esophageal ring, acquired TAKE 1 CAPSULE BY MOUTH ONCE DAILY 1 HOUR BEFORE THE FIRST MEAL OF THE DAY 90 Capsule 1 08/28/19 24 Active BD Pen Needle Rolanda 2nd Gen 32G X 4 MM (Insulin Pen Needle)Indicatio ns:Type 2 diabetes mellitus with hemoglobin A1c goal of less than 8.0% (HCC) USE 4 TIMES DAILY 400 Each 3 08/31/19 24 Active Losartan Potassium 25 MG Oral Tablet (Cozaar)Indicati ons:HTN, goal below 130/80 Take 1 Tablet by mouth in the morning. 90 Tablet 02/11/20 24 Active metFORMIN HCl 1000 MG Oral Tablet (Glucophage)Caity cations:Type 2 diabetes mellitus with hemoglobin A1c goal of less than 8.0% (HCC) Take 1 tablet by mouth twice daily 180 Tablet 1 02/23/20 24 Active Atorvastatin Calcium 40 MG Oral Tablet (Lipitor)Indicat ions:Dyslipidemi a, goal LDL below 100,Type 2 diabetes mellitus with hemoglobin A1c goal of less than 8.0% (HCC) TAKE 1 TABLET BY MOUTH IN THE MORNING 90 Tablet 2 03/22/20 24 Active Levothyroxine Sodium 75 MCG Oral TabletIndication s:Hypothyroidism due to acquired atrophy of thyroid TAKE 1 TABLET BY MOUTH ONCE DAILY AT LEAST 30 MINUTES PRIOR TO BREAKFAST OR OTHER MEDS 90 Tablet 3 04/21/20 24 Active Tresiba FlexTouch 100 UNIT/ML Subcutaneous Solution Pen-injectorIndi cations:Type 2 diabetes mellitus with hemoglobin A1c goal of less than 8.0% (HCC) Inject 8 units under the skin once daily. 15 mL 4 05/16/20 24 Active NovoLOG FlexPen 100 UNIT/ML Subcutaneous Solution Pen-injector (insulin aspart)Indicatio ns:Type 2 diabetes mellitus with hemoglobin A1c goal of less than 8.0% (HCC) Inject 8 units before breakfast, 10 units before lunch, and 12 units before supper plus CF of 1:30 over 150 following chart provided. Skip if skipping a meal. 45 mL 3 05/18/20 24 Active Chlorthalidone 25 MG Oral Tablet (Hygroton)Indica tions:HTN, goal below 130/80 TAKE 1 TABLET BY MOUTH IN THE MORNING 30 Tablet 5 06/07/20 24 Active Chlorthalidone 25 MG Oral Tablet (Hygroton)Indica tions:HTN, goal below 130/80 TAKE 1 TABLET BY MOUTH IN THE MORNING 30 Tablet 5 12/02/19 24 2023 Discontinued documented as of this encounter (statuses as of 06/07/2024) Active Problems Problem Noted Date Diagnosed Date [...] as of this encounter (statuses as of 06/07/2024) Resolved Problems Problem Noted Date Diagnosed Date [...] as of this encounter (statuses as of 06/07/2024) Immunizations Name Administration Dates Next Due COVID-19 [...] encounter Miscellaneous Notes * Telephone Encounter - Az Rodriguez [facility] - 06/07/2024 7:57 AM ESTSigned Prescriptions: Disp Refills Chlorthalidone 25 MG Oral Tablet (Hygroton)30 Tab*5 Sig: TAKE 1 TABLET BY MOUTH IN THE MORNINGAuthorizing Provider: CHARITY DOSS User: AZ RODRIGUEZ-- documented in this encounter Plan of Treatment Upcoming Encounters Date Type Department Care Team (Late st Contact Info) Description 06/29/2024 2:00 PM EST Office Visit Pharmacy, [place] [address] [place] [phone] [facility] [address] [place] [address] [place] [address] 08/25/2024 9:30 AM EST Office Visit [facility] [place] [address] [place] [phone] Charity Doss DO [address] [place] [address] Scheduled Procedures Name Priority Associated Diagnoses Date/Ti [...] 12/11/2022, Additional history exists HbA1c 08/17/2024 02/15/2024, 08/13, 03/13/2023, Additional history exists B-12 08/26/2024 08/26/2023, 020 08/2022, 02/21/2021, Additional history exists CKD HGB USE SMARTSET 85686 08/26/202408/26, 08/14/2022, 02/21/2021, Additional history exists CKD PHOS USE SMARTSET 62139 08/26/2024 08/26/2023, 0 08/14/2022 Albumin/Creatinine Ratio 02/14/2025 [...] Documents on File Type Date Recorded Patient Front Office Agent Expl anation Advance Directives and Living Will 10/21/2022 ADVANCE DIRECTIVE / LIVING WILL Power of Lease Attendant 10/21/2022 POWER OF A TTORNEY * No Code Status (Latest Code Status on File) Date Activated Date Inactivated Comments 01/11/2004 9:29 AM 01/11/2004 9:29 AM Care Teams Metallography Teacher Relationship Specialty Start Date End Date Charity Doss DO [address] [place] [address] PCP - General Family Medicine 08/14/22 documented as of this encounter
--- OUTSIDE RECORDS SUMMARY | 2024-08-13 05:34 | External Medical Summary | Summary of Care ---
Author Name Unknown Organization [facility] Address [address] [place] [address] Phone [phone] Care Team Providers Care Hand Candy Molder Name Role Phone Reynahuma Yadira Alejandro BLAND Primary Care Provider Reason for Visit * Reason Comments Dosage Adjustment In Person (Anticoag Cl inic) Diabetes Follow-Up Encounter Details Date Type Department Care Team ([facility] st Contact Info) Description 06/29/2024 2:00 PM EST Office Visit Pharmacy, [facility] [address] [phone] [place], [facility] [address] [place] [address] Type 2 diabetes mellitus with hemoglobin A1c goal of less than 8.0% ([facility])* Allergies Active Allergy Reactions Criticality Noted Date Comments Sulfamethoxazole-Trimethoprim Hives Medium 2008 Hives documented as of this encounter (statuses as of 06/30/2024) Medications Clobetasol Propionate 0.05 % External Solution [...] not taking.Reported on 08/26/2023 FreeStyle Litzy 2 [place] Device Use as directed. Supplied by [facility] [employer] Active FreeStyle Litzy 2 Sensor Use as directed. Change every 14 days. Supplied by [facility] [employer] ( ) Active FreeStyle Litzy 2 SensorIndications [...] goal of less than 8.0% ([facility]) Inject 8 units before breakfast, 10 units [...] as of this encounter (statuses as of 06/30/2024) Active Problems Problem Noted Date Diagnosed Date [...] as of this encounter (statuses as of 06/30/2024) Resolved Problems Problem Noted Date Diagnosed Date [...] as of this encounter (statuses as of 06/30/2024) Immunizations Name Administration Dates Next Due COVID-19 [...] AM EST documented as of this encounter Progress Notes * Stephania Mcwilliams, [facility] - 06/29/2024 2:07 PM EST Images from the original note were not included. Medication Therapy Disease [facility] - Diabetes Management Progress Note Ena Cano, identified by name and date of , is a 79 year old female being seen for diabetes management/education. Patient presents for return diabetic visit. DIABETES: Current diabetic medications: Metformin 1000mg twice daily Tresiba 8 units daily in AM Novolog 10-14-12 units with meals and 2 units with snack + CF 1:30 over 140 [see chart at bottom ofnote] GFR 58 as of 02/15/24 Medication Injection Site: Abdomen Lifestyle: Diet: unchanged Glucose Review/SMBG: Readings obtained from patient device Hypoglycemia: Does your blood sugar go below 70 mg/dL? No Hyperglycemia symptoms present: none Recent Labs Units 06/29/24 1358 02/15/24 0904 08/26/23 1128 HEMOGLOBIN A1C - [facility] % -- 8.5* 8.9* HEMOGLOBIN A1C POCT - [facility] % 9.1* -- -- Recent Labs Units 02/15/24 0904 03/13/23 1409 12/11/22 1040 ESTIMATED GLOMERULAR FILTRATION RATE - [facility] mL/min 58* 67 58* CREATININE - [facility] mg/dL 1.0 0.9 1.0 HYPERTENSION: Patient on ACEi/ARB: yes BP Readings from Last 3 Encounters: 02/15/24 128/66 08/26/23 122/66 03/13/23 112/62 Blood pressure at goal: yes HYPERLIPIDEMIA: Recent Labs Units 02/15/24 0904 12/11/22 1040 LDL CHOLESTEROL (CALCULATED) - [facility] mg/dL 65 71 Does patient have clinical ASCVD? No, is patient LDL less than 70mg/dL? Yes HEALTH MAINTENANCE REVIEW: Health Maintenance Due Topic Date Due Zoster Vaccines (1 of 2) Never done Hepatitis B Vaccine (3 of 3 - 19+ 3-dose series) 04/12/2000 Adult Wellness Visit Never done DTap/Tdap Vaccines (2 - Td or Tdap) 08/30/2020 Colonoscopy 05/04/2023 Diabetic Foot Exam 08/14/2023 DXA Scan 12/05/2023 Influenza Vaccine (FLU shot) (1) 03/13/2024 COVID-19 Vaccine (2023- season) 2024 ASSESSMENT & PLAN: ICD-10-CM 1. Type 2 diabetes mellitus with hemoglobin A1c goal of less than 8.0% ([facility]) E11.9 Considerations: - Severe stomach upset/nausa with trulicity - Freestyle Litzy 2 through [employer] ( ) - Has PACE - Not interested in taking jardiance BG Readings - Blood sugars uncontrolled. POC A1c completed today, and BG are uptrending. CGM download suggests A1c in 8%, but A1c is 9% Medications - Reviewed current regimen, patient is adherent to regimen. Insurance is no longer going to cover tresiba in the new year-- will plan to change to lantus. Will strengthen CF to better shift sugars down. Diet, Exercise, Lifestyle - No significant lifestyle changes since last visit. Discussed with patient. Patient is agreeable to SMBG with CGM daily. Patient aware to contact clinic if any hypoglycemia before next visit. MEDICATION CHANGES: yes, see below; preferred pharmacy: [facility] Medications: Metformin 1000mg twice daily Tresiba 8 units daily in AM INC Novolog 10-14-12 units with meals and 2 units with snack + CF 1:25 over 140 [see chart at bottom of note] GFR 58 as of 02/15/24 FOLLOW UP: Return to clinic in 6 weeks 08/09/2024 I spent a total of 20-29 minutes (exact time 28 mins) on the date of service in preparation, delivery, and documentation of the care provided to Ena Cano excluding any time spent in the performance of separately billed services. Stephania Mcwilliams [facility] Clinical Pharmacist - Acetylene Gas Compressor Medication Therapy Management Clinic 06/29/2024, 2:08 PM 06/29/24 Fast Acting Insulin: Novolog To find insulin dose: 1) Find the ROW in which pre-meal blood sugar is in (on LEFT of chart) 2) Find COLUMN which represents which meal you are eating 3) Go across row from step 1 and go down column from step 2 4) Where the row and column cross - that is the dose of fast acting insulin Blood Sugar levels AM Meal Lunch PM Meal Snack 70 to 139 10 14 12 2 140 to 164 10 14 12 2 165 to 189 11 15 13 3 190 to 214 12 16 14 4 215 to 239 13 17 15 5 240 to 264 14 18 16 6 265 to 289 15 19 17 7 290 to 314 16 20 18 8 315 to 339 17 21 19 9 340 to 364 18 22 20 10 365 to 389 19 23 21 11 390 to 414 20 24 22 12 415 and higher 21 25 23 13 Parameters fixed 10 14 12 2 holden 25 over 140 Electronically signed by Stephania Mcwilliams [facility] at 06/30/2024 7:15 AM EST documented in this encounter Plan of Treatment Upcoming Encounters Date Type Department Care Team (Late st Contact Info) Description 08/09/2024 11:30 AM EST Office Visit Pharmacy, [facility] [place] [address] [phone] [facility] [address] [facility] [place] [address] 08/25/2024 9:30 AM EST Office Visit Family Practice, [place] [phone] Yadira Doss DO [address] [place] [address] Scheduled Procedures Name Priority Associated Diagnoses Date/Ti [...] Additional history exists CKD HGB USE SMARTSET 62679 08/26/202408/26, 08/14/2022, 02/21/2021, Additional history exists CKD PHOS USE SMARTSET 83929 08/26/2024 08/26/2023, 0 08/14/2022 HbA1c 12/28/2024 06/29/2024, [...] Not on filedocumented as of this encounter Procedures Procedure Name Priority Date/Time Associated Diagnosis Comments HEMOGLOBIN A1C, POINT OF CARE Routine 06/29/2024 1:58 PM EST Type 2 diabetes mellitus with hemoglobin A1c goal of less than 8.0% (HCC) documented in this encounter Results * (ABNORMAL) HEMOGLOBIN A1C, POINT OF CARE (06/29/2024 1:58 PM EST) Hemoglobin A1c 9.1(H) 4.0 - 5.6 % 06/29/2024 2:23 PM EST [facility] 06/29/2024 1:58 PM EST 06/29/2024 2:23 PM EST us Stephania Mcwilliams [facility] LAB POINT OF CARE TEST DOCKED DEVICE UNSOLICITED RESULTS Final Result [facility] [address] [place] [address], [facility] documented in this encounter Visit Diagnoses Diagnosis Type 2 diabetes mellitus with hemoglobin A1c goal of less than 8.0% (HCC)- Primary documented in this encounter Advance Directives Documents on File Type Date Recorded Patient Early Education Teacher Expl anation Advance Directives and Living Will 10/21/2022 ADVANCE DIRECTIVE / LIVING WILL Power of Lining Cementer 10/21/2022 POWER OF A TTORNEY * No Code Status (Latest Code Status on File) Date Activated Date Inactivated Comments 01/11/2004 9:29 AM 01/11/2004 9:29 AM Care Teams Hand Candy Molder Relationship Specialty Start Date End Date Yadira Doss DO PCP - General Family Medicine 08/14/22 documented as of this encounter
--- OUTSIDE RECORDS SUMMARY | 2024-08-13 05:34 | External Medical Summary | Summary of Care ---
Author Name Unknown Organization [facility] Address [address] [place] [address] Phone [phone] Care Team Providers Care Low Pressure Firer Name Role Phone Charity Doss DO Primary Care Provider Reason for Visit * Reason Comments eRx-Medication Refill Encounter Details Date Type Department Care Team (Late st Contact Info) Description 04/19/2024 Refill [facility] [address] [place] [phone] Charity Doss DO [address] [place] [address] Hypothyroidism due to acquired atrophy of thyroid Allergies Active Allergy Reactions Criticality Noted Date [...] not taking.Reported on 08/26/2023 FreeStyle Litzy 2 [place] Device Use as directed. Supplied by [employer] Active FreeStyle Litzy 2 Sensor Use as directed. Change every 14 days. Supplied by [facility] [employer] ( ) Active FreeStyle Litzy 2 SensorIndications [...] TIMES DAILY 400 Each 3 4 Active Chlorthalidone 25 MG Oral [...] OTHER MEDS 90 Tablet 3 4 Active Insulin Degludec 100 UNIT/ML Subcutaneous Solution (Tresiba)Indicati ons:Type 2 diabetes mellitus with hemoglobin A1c goal of less than 8.0% (HCC) Inject 10 units under the skin once daily. 15 mL 1 4 05/16/20 24 Discontinued NovoLOG FlexPen 100 UNIT/ML Subcutaneous Solution Pen-injector (insulin aspart)Indication s:Type 2 diabetes mellitus with hemoglobin A1c goal of less than 8.0% ([facility]) Inject 8 units before breakfast, 10 units before lunch, and 12 units before supper plus CF of 1:30 over 150 following chart provided. Skip if skipping a meal. 45 mL 3 4 05/17/20 24 Discontinued(Re fill) Levothyroxine Sodium 75 MCG Oral TabletIndications :Hypothyroidism due to acquired atrophy of thyroid TAKE 1 TABLET BY MOUTH ONCE DAILY AT LEAST 30 MINUTES PRIOR TO BREAKFAST OR OTHER MEDS 90 Tablet 4 04/21/20 24 Discontinued documented as of this encounter (statuses [...] mRNA, LNP-s, No Pre serve, 2-Dose Series ([employer]) 08/07/2020,07/17/2020 Hepatitis B, 20+ yrs 12/12/1999,11/11/1999,10/11 Pneumococcal [...] encounter Miscellaneous Notes * Telephone Encounter - Coreen Summers PHARM Tech - 05/18/2024 11:30 AM EST Pt calling to request Levothyroxine Sodium . Informed pt that RX is available at their pharmacy. Ptverbalized understanding and stated they will check with their pharmacy regarding this medication. Thank you, [facility] Re[facility] 05/18/2024, 11:30 AM * Telephone Encounter - Janet Norwood [facility] - 04/21/2024 7:29 AM EDTSigned Prescriptions: Disp Refills Levothyroxine Sodium 75 MCG Oral Tablet 90 Tab*3 Sig: TAKE 1 TABLET BY MOUTH ONCE DAILY AT LEAST 30 MINUTES PRIOR TO BREAKFAST OR OTHER MEDSAuthorizing Provider: CHARITY DOSS User: JANET NORWOOD documented in this encounter Plan of Treatment Upcoming Encounters Date Type Department Care Team (Late st Contact Info) Description 06/29/2024 2:00 PM EST Office Visit Pharmacy, [place] [address] [place] [facility] [place] [address] [place], [facility] [address] [place] [address] 08/25/2024 9:30 AM EST Office Visit Family Practice, [facility] [address] [place] [address] Charity Doss DO [address] [facility] [address] Scheduled Procedures Name Priority Associated Diagnoses Date/Ti [...] 03/20/2011, Additional history exists COVID-19 Vaccine ( - season) 2024 08/07/2020, 07/17/2020 Influenza Vaccine (FLU shot) (#1) 2024 04/23/2023, 05/03/2019, 05/03/2019, Additional history exists GFR 08/17/2024 02/15/2024, 09/0 07/2022, 12/11/2022, Additional history exists HbA1c 08/17/2024 02/15/2024, 08/13, 03/13/2023, Additional history exists B-12 08/26/2024 08/26/2023, 02/0 08/2022, 02/21/2021, Additional history exists CKD HGB USE SMARTSET 66467 08/26/202408/26, 08/14/2022, 02/21/2021, Additional history exists CKD PHOS USE SMARTSET 64173 08/26/2024 08/26/2023, 0 08/14/2022 Albumin/Creatinine Ratio 02/14/2025 [...] as of this encounter Visit Diagnoses Diagnosis Hypothyroidism due to acquired atrophy of thyroid documented in this encounter Advance Directives Documents on File Type Date Recorded Patient Literary Agent Expl anation Advance Directives and Living Will 10/21/2022 ADVANCE DIRECTIVE / LIVING WILL Power of Buddhist Monk 10/21/2022 POWER OF A TTORNEY * No Code Status (Latest Code Status on File) Date Activated Date Inactivated Comments 01/11/2004 9:29 AM 01/11/2004 9:29 AM Care Teams Low Pressure Firer Relationship Specialty Start Date End Date Charity Doss DO [address] [place] [address] PCP - General Family Medicine 08/14/22 documented as of this encounter
--- OUTSIDE RECORDS SUMMARY | 2024-08-13 05:34 | External Medical Summary | Summary of Care ---
Author Name Unknown Organization [facility] Address [address] [place] [address] Phone [phone] Care Team Providers Care Web Search Evaluator Name Role Phone DevanYadira michael Alejandro BLAND Primary Care Provider Reason for Visit * Reason Onset Date Comments Appointment 07/15/2024 Encounter Details Date Type Department Care Team (Late st Contact Info) Description 07/15/2024 Telephone Gastroenterology, [facility] [address] [place] [address] Collin Betancourt MD [address] [place] [address] Appointment Allergies Active Allergy Reactions Criticality Noted Date Comments Sulfamethoxazole-Trimethoprim Hives Medium 2008 Hives documented as of this encounter (statuses as of 07/15/2024) Medications Clobetasol Propionate 0.05 % External Solution [...] not taking.Reported on 08/26/2023 FreeStyle Litzy 2 [place] Device Use as directed. Supplied by [employer]. Active FreeStyle Litzy 2 Sensor Use as directed. Change every 14 days. Supplied by [facility] [employer] ( ) Active FreeStyle Litzy 2 SensorIndications [...] as of this encounter (statuses as of 07/15/2024) Active Problems Problem Noted Date Diagnosed Date [...] as of this encounter (statuses as of 07/15/2024) Resolved Problems Problem Noted Date Diagnosed Date [...] as of this encounter (statuses as of 07/15/2024) Immunizations Name Administration Dates Next Due COVID-19 [...] encounter Miscellaneous Notes * Telephone Encounter - Hillary Plata OSA - 07/15/2024 12:20 PM EST Received an order for a colonoscopy. Called patient and lmm documented in this encounter Plan of Treatment Upcoming Encounters Date Type Department Care Team (Late st Contact Info) Description 08/09/2024 11:30 AM EST Office Visit Pharmacy, [place] [phone] [facility] [address] [place] [address] [place] [address] 08/25/2024 9:30 AM EST Office Visit Family Practice, [place] [phone] Yadira Doss DO [address] [place] [address] Scheduled Procedures Name Priority Associated Diagnoses Date/Ti [...] Additional history exists CKD HGB USE SMARTSET 27781 08/26/202408/26, 08/14/2022, 02/21/2021, Additional history exists CKD PHOS USE SMARTSET 80432 08/26/2024 08/26/2023, 0 08/14/2022 HbA1c 12/28/2024 06/29/2024, [...] Documents on File Type Date Recorded Patient Certification And Selection Specialist Expl anation Advance Directives and Living Will 10/21/2022 ADVANCE DIRECTIVE / LIVING WILL Power of Appraiser [employer] 10/21/2022 POWER OF A TTORNEY * No Code Status (Latest Code Status on File) Date Activated Date Inactivated Comments 01/11/2004 9:29 AM 01/11/2004 9:29 AM Care Teams Web Search Evaluator Relationship Specialty Start Date End Date Yadira Doss DO PCP - General Family Medicine 08/14/22 documented as of this encounter
--- OUTSIDE RECORDS SUMMARY | 2024-08-13 05:34 | External Medical Summary | Summary of Care ---
Author Name Unknown Organization [facility] Address [address] [place] [address] Phone [phone] Care Team Providers Care Reproduction Specialist Name Role Phone Yadira Doss DO Primary Care Provider Reason for Visit * Reason Onset Date Comments Med Request 06/13/2024 Encounter Details Date Type Department Care Team (Late st Contact Info) Description 06/13/2024 Telephone [facility] [address] [place] [address] Yadira Doss DO [address] [place] [address] Med Request Allergies Active Allergy Reactions Criticality Noted Date Comments Sulfamethoxazole-Trimethoprim Hives Medium 2008 Hives documented as of this encounter (statuses as of 06/22/2024) Medications Clobetasol Propionate 0.05 % External Solution [...] not taking.Reported on 08/26/2023 FreeStyle Litzy 2 [place] Device Use as directed. Supplied by [employer] Active FreeStyle Litzy 2 Sensor Use as directed. Change every 14 days. Supplied by [facility] [employer] ( ) Active FreeStyle Litzy 2 SensorIndications [...] as of this encounter (statuses as of 06/22/2024) Active Problems Problem Noted Date Diagnosed Date [...] as of this encounter (statuses as of 06/22/2024) Resolved Problems Problem Noted Date Diagnosed Date [...] as of this encounter (statuses as of 06/22/2024) Immunizations Name Administration Dates Next Due COVID-19 mRNA, LNP-s, No Pre serve, 2-Dose Series (Pfizer) 08/07/2020,07/17/2020 Hepatitis B, 20+ yrs 12/12/1999,11/11/1999,10/11 Pneumococcal [...] encounter Miscellaneous Notes * Telephone Encounter - Luda Castle LPN - 06/22/2024 9:43 AM EST Attempted to call patient, there was no answer, left voicemail. When patient returns call, ok for BHARTI to relay message, please refer to below documentation. If needed, can transfer to dedicated nurse line. * Telephone Encounter - Yadira Doss DO - 06/22/2024 9:37 AM EST Her vit b 12 last lab was over 2000 She can resume and we can repeat labs in aug when I see her * Telephone Encounter - Sanjuana Bolton OSA - 06/15/2024 8:40 AM EST Patient returned call, states that Dr Doss told her that she cannot take vit b12. Patient asking why, and if she can't take that what else can she take because she feels tired. Please return call to patient. * Telephone Encounter - Luda Castle LPN - 06/15/2024 8:28 AM EST Tried to contact patient about what questions and concerns she has. If she calls please ask. * Telephone Encounter - Tahira Colby OSA - 06/13/2024 1:02 PM EST Patient has some questions and concerns about her b12 medication please call her at [phone]. documented in this encounter Plan of Treatment Upcoming Encounters Date Type Department Care Team (Late st Contact Info) Description 06/29/2024 2:00 PM EST Office Visit Pharmacy, [address] [place] [phone] [facility] [address] [place] [address] 08/25/2024 9:30 AM EST Office Visit [facility], [address] [place] [phone] Yadira Doss DO [address] [facility] [place] [address] Scheduled Procedures Name Priority Associated Diagnoses Date/Ti [...] 12/11/2022, Additional history exists HbA1c 08/17/2024 02/15/2024, 021 10/2023, 03/13/2023, Additional history exists B-12 08/26/2024 08/26/2023, 02/0 08/2022, 02/21/2021, Additional history exists CKD HGB USE SMARTSET 85743 08/26/202408/26, 08/14/2022, 02/21/2021, Additional history exists CKD PHOS USE SMARTSET 59600 08/26/2024 08/26/2023, 0 08/14/2022 Albumin/Creatinine Ratio 02/14/2025 [...] Documents on File Type Date Recorded Patient Shipwright Helper Expl anation Advance Directives and Living Will 10/21/2022 ADVANCE DIRECTIVE / LIVING WILL Power of Drop Forger 10/21/2022 POWER OF A TTORNEY * No Code Status (Latest Code Status on File) Date Activated Date Inactivated Comments 01/11/2004 9:29 AM 01/11/2004 9:29 AM Care Teams Reproduction Specialist Relationship Specialty Start Date End Date Yadira Doss DO [address] [place] [address] PCP - General Family Medicine 08/14/22 documented as of this encounter
--- OUTSIDE RECORDS SUMMARY | 2024-08-13 05:34 | External Medical Summary | Summary of Care ---
Author Name Unknown Organization [facility] Address [address] [place] [address] Phone [phone] Care Team Providers Care Beauty School Instructor Name Role Phone Yadira Doss DO Primary Care Provider Reason for Visit * Reason Onset Date Comments Med Request 06/13/2024 Encounter Details Date Type Department Care Team (Late st Contact Info) Description 06/13/2024 Telephone [facility] [address] [place] [address] Yadira Doss DO [address] [place] [address] Med Request Allergies Active Allergy Reactions Criticality [...] not taking.Reported on 08/26/2023 FreeStyle Litzy 2 [place] Device Use as directed. Supplied by [employer] Active FreeStyle Litzy 2 Sensor Use as directed. Change every 14 days. Supplied by [facility] [employer] ( ) Active FreeStyle Litzy 2 SensorIndications [...] her b12 medication please call her at [phone]. documented in this encounter Plan of Treatment Upcoming Encounters Date Type Department Care Team (Late st Contact Info) Description 06/29/2024 2:00 PM EST Office Visit Pharmacy, [address] [place] [phone] [facility] [address] [place] [address] 08/25/2024 9:30 AM EST Office Visit [facility], [address] [place] [phone] Yadira Doss DO [address] [place] [address] Scheduled Procedures Name Priority Associated Diagnoses Date/Ti [...] Additional history exists CKD HGB USE SMARTSET 19285 08/26/202408/26, 08/14/2022, 02/21/2021, Additional history exists CKD PHOS USE SMARTSET 49728 08/26/2024 08/26/2023, 0 08/14/2022 Albumin/Creatinine Ratio 02/14/2025 [...] Documents on File Type Date Recorded Patient Trade Specialist Expl anation Advance Directives and Living Will 10/21/2022 ADVANCE DIRECTIVE / LIVING WILL Power of Consolidation Accountant 10/21/2022 POWER OF A TTORNEY * No Code Status (Latest Code Status on File) Date Activated Date Inactivated Comments 01/11/2004 9:29 AM 01/11/2004 9:29 AM Care Teams Beauty School Instructor Relationship Specialty Start Date End Date Yadira Doss DO [address] [place] [address] PCP - General Family Medicine 08/14/22 documented as of this encounter
--- OUTSIDE RECORDS SUMMARY | 2024-08-13 05:34 | External Medical Summary | Summary of Care ---
Author Name Unknown Organization [facility] Address [address] [place] [address] Phone [phone] Care Team Providers Care Talent Development Coordinator Name Role Phone Yadira Doss DO Primary Care Provider Reason for Visit * Reason Onset Date Comments Med Request 06/13/2024 Encounter Details Date Type Department Care Team (Late st Contact Info) Description 06/13/2024 Telephone [facility] [address] [place] [address] Yadira Doss DO [address] [place] [address] Med Request Allergies Active Allergy Reactions Criticality Noted Date Comments Sulfamethoxazole-Trimethoprim Hives Medium 2008 Hives documented as of this encounter (statuses as of 06/24/2024) Medications Clobetasol Propionate 0.05 % External Solution [...] not taking.Reported on 08/26/2023 FreeStyle Litzy 2 [place] Device Use as directed. Supplied by [employer] Active FreeStyle Litzy 2 Sensor Use as directed. Change every 14 days. Supplied by [facility] [employer] ( ) Active FreeStyle Litzy 2 SensorIndications [...] as of this encounter (statuses as of 06/24/2024) Active Problems Problem Noted Date Diagnosed Date [...] as of this encounter (statuses as of 06/24/2024) Resolved Problems Problem Noted Date Diagnosed Date [...] as of this encounter (statuses as of 06/24/2024) Immunizations Name Administration Dates Next Due COVID-19 [...] encounter Miscellaneous Notes * Telephone Encounter - Radha Murillo LPN - 06/24/2024 3:36 PM EST MYG sent * Telephone Encounter - Luda Castle LPN [...] her b12 medication please call her at [phone]. documented in this encounter Plan of Treatment Upcoming Encounters Date Type Department Care Team (Late st Contact Info) Description 06/29/2024 2:00 PM EST Office Visit Pharmacy, [facility] [place] [phone] [facility] [address] 08/25/2024 9:30 AM EST Office Visit Family Practice, [facility] [address] [facility] [place] [phone] Yadira Doss DO [address] [facility] [place] [address] Scheduled Procedures Name Priority Associated Diagnoses Date/Ti [...] 12/11/2022, Additional history exists HbA1c 08/17/2024 02/15/2024, 02/1 10/2023, 03/13/2023, Additional history exists B-12 08/26/2024 08/26/2023, 02/0 08/2022, 02/21/2021, Additional history exists CKD HGB USE SMARTSET 53775 08/26/202408/26, 08/14/2022, 02/21/2021, Additional history exists CKD PHOS USE SMARTSET 36770 08/26/2024 08/26/2023, 0 08/14/2022 Albumin/Creatinine Ratio 02/14/2025 [...] Documents on File Type Date Recorded Patient Cena Expl anation Advance Directives and Living Will 10/21/2022 ADVANCE DIRECTIVE / LIVING WILL Power of Motor Vehicle Operator Road Supervisor 10/21/2022 POWER OF A TTORNEY * No Code Status (Latest Code Status on File) Date Activated Date Inactivated Comments 01/11/2004 9:29 AM 01/11/2004 9:29 AM Care Teams Talent Development Coordinator Relationship Specialty Start Date End Date Yadira Doss DO [address] [place] [address] PCP - General Family Medicine 08/14/22 documented as of this encounter
--- OUTSIDE RECORDS SUMMARY | 2024-08-13 05:34 | External Medical Summary | Summary of Care ---
Author Name Unknown Organization [facility] Address [address] [place] [address] Phone [phone] Care Team Providers Care Furniture Designer Name Role Phone Charity Harris DO Primary Care Provider Reason for Visit * Reason Comments eRx-Medication Refill Encounter Details Date Type Department Care Team (Late st Contact Info) Description 05/15/2024 Refill Pharmacy, [address] [address] Charity Harris DO [address] [place] [address] Type 2 diabetes mellitus with hemoglobin A1c goal of less than 8.0% ([facility]) Allergies Active Allergy Reactions Criticality Noted Date Comments Sulfamethoxazole-Trimethoprim Hives Medium 2008 Hives documented as of this encounter (statuses as of 05/16/2024) Medications Medication Sig Dispensed Refills Start Date [...] not taking.Reported on 08/26/2023 FreeStyle Litzy 2 [place] Device Use as directed. Supplied by [employer] Active FreeStyle Litzy 2 Sensor Use as directed. Change every 14 days. Supplied by [facility] [employer] ( ) Active FreeStyle Litzy 2 SensorIndications: [...] TIMES DAILY 400 Each 3 4 Active NovoLOG FlexPen 100 UNIT/ML Subcutaneous Solution Pen-injector (insulin aspart)Indications :Type 2 diabetes mellitus with hemoglobin A1c goal of less than 8.0% (HCC) Inject 8 units before breakfast, 10 units before lunch, and 12 units before supper plus CF of 1:30 over 150 following chart provided. Skip if skipping a meal. 45 mL 3 4 Active Chlorthalidone 25 MG Oral Tablet (Hygroton)Indicati [...] 4 Active Levothyroxine Sodium 75 MCG Oral TabletIndications: [...] once daily. 15 mL 4 4 Active Insulin Degludec 100 UNIT/ML Subcutaneous Solution (Tresiba)Indicatio ns:Type 2 diabetes mellitus with hemoglobin A1c goal of less than 8.0% (HCC) Inject 10 units under the skin once daily. 15 mL 1 4 05/16/20 24 Discontinued documented as of this encounter (statuses as of 05/16/2024) Active Problems Problem Noted Date Diagnosed Date [...] as of this encounter (statuses as of 05/16/2024) Resolved Problems Problem Noted Date Diagnosed Date [...] as of this encounter (statuses as of 05/16/2024) Immunizations Name Administration Dates Next Due COVID-19 [...] encounter Miscellaneous Notes * Telephone Encounter - Chris Mcwilliams RPh - 05/16/2024 7:27 AM EST Signed Prescriptions: Disp Refills Tresiba FlexTouch 100 UNIT/ML Subcutaneous*15 mL 4 Sig: Inject 8units under the skin once daily.Authorizing Provider: CHARITY HARRIS User: CHRIS MCWILLIAMS documented in this encounter Plan of Treatment Upcoming Encounters Date Type Department Care Team (Late st Contact Info) Description 06/29/2024 2:00 PM EST [facility] [place] [address] [facility] [address] [facility] [address] [facility] [address] 08/25/2024 9:30 AM EST Office Visit Family [facility], [address] [place] [address] Charity Harris DO [address] [place] [address] Scheduled Procedures Name Priority Associated Diagnoses Date/Ti me COLONOSCOPY FLEXIBLE PROXIMAL DIAGNOSTIC Recall History of colon polyps Health Maintenance Due Date Last Done Comments Hepatitis B Vaccine (3 of 3 - 19+ 3-dose series) 04/12/2000 12/12/1999, 11/11/1999, 10/12/1999 Adult Wellness Visit 02/03/2012 Colonoscopy 05/04/2023 05/04/2018, 04/13, 02/07/2015, Additional history exists DXA Scan 12/05/2023 12/04/2020, 08/14, 03/20/2011, Additional history exists COVID-19 Vaccine (2023- season) 2024 08/07/2020, 07/17/2020 Influenza Vaccine (FLU shot) (#1) 2024 04/23/2023, 05/03/2019, 05/03/2019, Additional history exists DTap/Tdap Vaccines (2 - Td or Tdap) 05/13/2024 08/30/2010, 10/11/2001, 07/13/1994 Postponed from 08/30/2020 (Patient Declined After Education) Zoster Vaccines (1 of 2) 05/13/2024 Pos tponed from 02/03/1996 (Patient Declined After Education) Diabetic Foot Exam 05/14/2024 08/14/2022, 0 11/19/2020, 05/17/2018, Additional history exists Postponed from 08/14/2023 (Patient Declined After Education) GFR 08/17/2024 02/15/2024, 090 07/2022, 12/11/2022, Additional history exists HbA1c 08/17/2024 02/15/2024, 08/13, 03/13/2023, Additional history exists B-12 08/26/2024 08/26/2023, 08/2022, 02/21/2021, Additional history exists CKD HGB USE SMARTSET 11726 08/26/202408/26, 08/14/2022, 02/21/2021, Additional history exists CKD PHOS USE SMARTSET 37005 08/26/2024 08/26/2023, 0 08/14/2022 Albumin/Creatinine Ratio 02/14/2025 [...] Documents on File Type Date Recorded Patient Package Sealer Expl anation Advance Directives and Living Will 10/21/2022 ADVANCE DIRECTIVE / LIVING WILL Power of Mechanical Process Engineer 10/21/2022 POWER OF A TTORNEY * No Code Status (Latest Code Status on File) Date Activated Date Inactivated Comments 01/11/2004 9:29 AM 01/11/2004 9:29 AM Care Teams Furniture Designer Relationship Specialty Start Date End Date Charity Harris DO [address] [place] [address] PCP - General Family Medicine 08/14/22 documented as of this encounter
--- OUTSIDE RECORDS SUMMARY | 2024-08-13 05:34 | External Medical Summary | Continuity of Care Document ---
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 clobetasol solution three times a week. Continue shampoo. She likes a tea tree oil shampoo. 2.Seborrheic dermatitis chronic and worsening -Concentrate onanterior areawhere there is active scale. Try neutrogena TSAL or any Leon acid shampoo alternate with tea tree oil shampoo. 3.History of basal cell cancer Reviewed sun protection with SPF 30 or higher applied every 80 minutes and use of sun protective clothing and hat. Call with questions or concerns. Follow up9 months. Patient in agreement with plan Medications Accu-Chek Active Glucose Monitor Start: 02/28/21 2:24:00 PM EDT, 180 each, TAKE 1 TABLET BY MOUTH TWICE DAILY FOR SUGAR CONTROL Start Date: 02/28/21 Status: Ordered Aspirin Low Dose 81 mg oral delayed release tablet Start: 06/30/19 3:51:00 PM EST, 1 tab, PO, Daily Start Date: 06/30/19 Status: Ordered atorvastatin 40 mg oral tablet Start: 06/30/19 3:50:00 PM EST, 1 tab, PO, Daily Start Date: 06/30/19 Status: Ordered chlorthalidone 25 mg oral tablet Start: 01/29/22 1:19:00 PM EDT Start Date: 01/29/22 Status: Ordered clobetasol 0.05% topical solution Start: 05/12/22 11:56:00 AM EDT, 1 appl, topical, bid, Disp# 50 mL, Refills: 2, BID to AA on scalp,Pharmacy: [id number] Start Date: 05/12/22 Status: Ordered levothyroxine 75 mcg (0.075 mg) oral tablet Start: 06/30/19 3:50:00 PM EST, 1 tab, PO, Daily Start Date: 06/30/19 Status: Ordered losartan 25 mg oral tablet TAKE 1 TABLET BY MOUTH IN THE MORNING Start Date: 10/01/22 Status: Ordered metFORMIN 1000 mg oral tablet Start: 06/30/19 3:50:00 PM EST, 1 tab, PO, bid Start Date: 06/30/19 Status: Ordered NovoLOG FlexPen 100 units/mL injectable solution Start: 08/21/23 1:38:00 PM EST Start Date: 08/21/23 Status: Ordered omeprazole 20 mg oral delayed release capsule Start: 06/30/19 3:50:00 PM EST, 1 cap, PO, Daily Start Date: 06/30/19 Status: Ordered ReliOn/NovoLIN 70/30 Vial subcutaneous suspension Start: 06/30/19 3:50:00 PM EST, See Instructions, 33 units sq in am 23 units sq in pm Start Date: 06/30/19 Status: Ordered Tresiba FlexTouch 100 units/mL subcutaneous solution Start: 04/15/23 2:50:00 PM EDT Start Date: 04/15/23 Status: Ordered Mental Status 05/05/24 Barriers to Learning one year None evide nt Mandatory Health Literacy Documentation Yes Health Literacy Communication Barriers N ever Primary Language Israeli Problem List Condition Confirmation Course Effective Dates Status H ealth Status Informant Callus Confirmed Active DM (diabetes mellitus) Confirmed Active Diabetes Confirmed Active GERD (gastroesophageal reflux disease) Confirmed Active Elevated cholesterol Confirmed Active HTN (hypertension) Confirmed Active Hypothyroidism Confirmed Active Lower limb length difference Confirmed Active Tinea unguium Confirmed Active Diagnosis Diagnosis Type Effective Dates Health Status Clinical Service Informant Seborrheic dermatitis Discharge Diagnosis 05/05/24 History of basal cell cancer Discharge Diagnosis 05/05/24 Erosive pustular dermatosis Discharge Diagnosis 05/05/24 Procedures Procedure Date Related Diagnosis Body Site Status Mohs' micrographic surgery 10/12/23 Completed Shave biopsy of skin 08/03/23 Comp leted Shave biopsy and cauterisation of skin 06/30/19 Completed Cataract 1 Completed Lumpectomy 2 Completed 1surgery to both eyes 11/01 2benign Social History Social History Type Response Smoking Status Never smoked cigaret erna Sex Female Sex Representation Female (finding) Dermatology Outpatient Note * LAKESHA Jackson, Anastacia M: PERFORM Event Display: Dermatology Outpt Note Authored Date: [id number] Chief Complaint Scalp is scaled x months worsening. Did not try the TSAL shampoo. Using Tea Tree Oil shampoo. no other concerns. Hx of BCC History of Present Illness Ena is a 79year old patient presenting today for a follow up of Scalp is scaled x months worsening. Did not try the TSAL shampoo. Using Tea Tree Oil shampoo. no other concerns. Hx of BCC.. Biopsy proven erosive pustular dermatoses. Using clobetasol solution 3x a week (sometimes forgets). She is using tea tree oil shampoo. Stopped doxycyclineyears ago. Shampoos (Tea tree oil) every night. Patient had tried ketoconazole shampoo which she was using twice a day as previously recommended prior to coming to our office. She denies itching, bleeding, oozing, crusting or evolving lesions. Patient haspast personal history of skin cancer: BCC left central frontal scalp Mohs 10/12/23 Family history: none of skin cancer Patient uses sunscreen. Patient reports no history of blistering sunburns / tanning beds. 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 Physical Exam Constitutional: Generally well appearing, well developed. Appears stated age. Eyes: Conjunctivae and lids without noted inflammation, lesion, mass, deformity or drainage. Neurological/ Psychiatric: Oriented to person, place, and time. Appropriate mood and affect. No notable depression, anxiety or agitation. Integumentary:Exam of the scalp, face, hair, lips, eyelids, neck, both upper extremities, hands, digits, and nails was conducted and was normal except as detailed below: SCALP - white 3CM hairless patch with mild peripheral pink scale representing inflammation. Nooozing, pustules.Some scale in front of hairless patch. 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 clobetasol solution three times a week. Continue shampoo. She likes a tea tree oil shampoo. 2.Seborrheic dermatitis chronic and worsening -Concentrate onanterior areawhere there is active scale. Try neutrogena TSAL or any Leon acid shampoo alternate with tea tree oil shampoo. 3.History of basal cell cancer Reviewed sun protection with SPF 30 or higher applied every 80 minutes and use of sun protective clothing and hat. Call with questions or concerns. Follow up9 months. Patient in agreement with plan Problem List/Past Medical History Ongoing Callus Diabetes DM (diabetes mellitus) Elevated cholesterol GERD (gastroesophageal reflux disease) HTN (hypertension) Hypothyroidism Lower limb length difference Tinea unguium Procedure/Surgical History Mohs' micrographic surgery| Service Date: 10/12/2023Shave biopsy of skin| Service Date: 08/03/2023Shave biopsy and cauterisation of skin| Service Date: 06/30/2019CataractLumpectomy Medications aspirin(Aspirin Low Dose 81 mg oral delayed release tablet), 81 mg= 1 tab, PO, Daily atorvastatin(atorvastatin 40 mg oral tablet), 40 mg= 1 tab, PO, Daily chlorthalidone(chlorthalidone 25 mg oral tablet) clobetasol topical(clobetasol 0.05% topical solution), 1 appl, topical, bid, 2 refills diabetes supplies(Accu-Chek Active Glucose Monitor) insulin aspart(NovoLOG FlexPen 100 units/mL injectable solution) insulin degludec(Tresiba FlexTouch 100 units/mL subcutaneous solution) insulin isophane (NPH)-insulin regular(ReliOn/NovoLIN 70/30 Vial subcutaneous suspension), See Instructions levothyroxine(levothyroxine 75 mcg (0.075 mg) oral tablet), 75 mcg= 1 tab, PO, Daily losartan(losartan 25 mg oral tablet) metFORMIN(metFORMIN 1000 mg oral tablet), 1000 mg= 1 tab, PO, bid omeprazole(omeprazole 20 mg oral delayed release capsule), 20 mg= 1 cap, PO, Daily Allergies sulfa drugshives Social History Smoking Status Never smoked cigarettes Electronic Signature on File Electronically Reviewed/Signed by: DRE Singh Author Signature Dt/Tm:05/05/2024 04:07 PM Department of Family Medicine Department of Dermatology DMS Patient Care team information Care Team Personnel Name: DO Doss Laura L Position: Referring DIRECT Member Role: Primary Care Provider Address: [address] [place] [id number]"
--- OUTSIDE RECORDS SUMMARY | 2024-08-13 05:35 | External Medical Summary | Continuity of Care Document ---
Author Name Unknown Organization [facility] [id number] Address [address] [place] [phone] Care Team Providers Care Software Developer Intern Name Role Phone Yadira Doss Primary Care Physician [phone] [id number] Date(s): 04/06/24 - 04/06/24 [facility] [address] [place] [id number] [facility] [address] [place] [id number] Encounter Diagnosis Diabetes(Discharge Diagnosis) - 04/06/24 Callus(Discharge Diagnosis) - 04/06/24 Tinea unguium(Discharge Diagnosis) - 04/06/24 Discharge Disposition: Home or Self Care Attending Physician: ORLANDO Villatoro Christina L Referring Physician: DO Doss Laura L Allergies, Adverse Reactions, Alerts Substance Criticality Severity Reaction Reaction Severity Status sulfa drugs hives Active Assessment and Plan Extracted from: Title:Follow Up Visit Author:ORLANDO Villatoro, Shirley Allen Date:04/06/24 1.Diabetes 2.Callus Area debrided with #15 blade to tolerance, no bleeding or cellulitis noted verbal consent obtained for debridement Recommend moisturizing lotion to feet daily Recommend offloading pads over the area for pressure relief 3.Tinea unguium -Patient unable to provide self care to toenails due todiabetes - verbal consent obtained for debridement -Recommend toenail debridement -Patient had toenails of bilateral digits 1-5 debrided using nail nippers to tolerance, no bleeding noted -Patient instructed to use emery board to nails once per week -Patient had no ingrown toenails or infection noted -Patient is to follow up in 5-6 months for treatment if needed in the future Medications Accu-Chek Active Glucose Monitor Start: 02/28/21 [...] Refills: 2, BID to AA on scalp,Pharmacy: [place] [id number] Start Date: 05/12/22 Status: Ordered levothyroxine 75 [...] Start Date: 04/15/23 Status: Ordered Mental Status 04/06/24 Barriers to Learning one year None evide nt Mandatory Health Literacy Documentation Yes Health Literacy Communication Barriers N ever Primary Language [place] Problem List Condition Confirmation Course Effective Dates Status H ealth Status Informant Callus Confirmed Active DM (diabetes mellitus) Confirmed Active Diabetes Confirmed Active GERD (gastroesophageal reflux disease) Confirmed Active Elevated cholesterol Confirmed Active HTN (hypertension) Confirmed Active Hypothyroidism Confirmed Active Lower limb length difference Confirmed Active Tinea unguium Confirmed Active Diagnosis Diagnosis Type Effective Dates Health Status Cl inical Service Informant Diabetes Discharge Diagnosis 04/06/24 Non-Specified Callus Discharge Diagnosis 04/06/24 Non-Specified Tinea unguium Discharge Diagnosis 04/06/24 Non-Specified Procedures Procedure Date Related Diagnosis Body Site Status Mohs' micrographic surgery 10/12/23 Completed Shave biopsy of skin 08/03/23 Comp leted Shave biopsy and cauterisation of skin 06/30/19 Completed Cataract 1 Completed Lumpectomy 2 Completed 1surgery to both eyes 11/01 2benign Vital Signs Most recent to oldest [Reference Range]: 1 Height 161.1 cm (04/06/24 3:40 PM) Patient Weight 90.8 kg (04/06/24 3:40 PM) Body Mass Index 34.99 kg/m2 (04/06/24 3:40 PM) Social History Social History Type Response Smoking Status Never smoked cigaret erna Sex Female Sex Representation Female (finding) Ortho Outpt Note * ORLANDO Villatoro Christina L: PERFORM Event Display: Ortho Outpt Note Authored Date: [id number] Chief Complaint nail care/callus care Primary Care Provider DO Doss Laura L Subjective Patient is a very pleasant 79-year-old female presenting today for carelast seen August 21, 2023, low risk diabetic. -No acute concerns. Review of Systems Cataracts, diabetes, arthritis Objective Vitals & Measurements WT:90.800kg(Dosing) WT:90.8kg Physical Exam Problem focused bilateral feet: Dorsalis pedisand posterior tibial pulses palpable 1 out of 4 capillary refill time less than 3 secondsskin turgor is good to all digits of both feet with pedal hair noted to be present. Neurovascular status is intactto all digitsof both feetmonofilament test intact to distal extremitiesproprioception intact to distal extremitiespatient did not relate burning numbness or tingling pain. Mild hammertoe deformity bilateral feet digits 2 through 5no pain or tenderness noted. Skin clean dryand intact without open wounds or lesions. Interspaces intact without maceration or breakdown Calluspresent lateral aspect of theleft foot x2,plantar fifth metatarsal head left foot,left footplantar aspect of fifth metatarsal base x2and dorsal aspect left fifth metatarsal headrecommend debridement Toenails of digits 1 through 5 of left foot withpain, thickening greater than 1 mm, elongation, discoloration, dystrophy recommend debridement debridement, digits 2 through5 right foot with pain,elongation, dystrophy, discoloration, thickening greater than 1 mm, recommend debridement Limb length discrepancypatient was given previous prescription for left for shoes. Assessment/Plan 1.Diabetes 2.Callus Area debrided with #15 blade to tolerance, no bleeding or cellulitis noted verbal consent obtained for debridement Recommend moisturizing lotion to feet daily Recommend offloading pads over the area for pressure relief 3.Tinea unguium -Patient unable to provide self care to toenails due todiabetes - verbal consent obtained for debridement -Recommend toenail debridement -Patient had toenails of bilateral digits 1-5 debrided using nail nippers to tolerance, no bleedingnoted -Patient instructed to use emery board to nails once per week -Patient had no ingrown toenails or infection noted -Patient is to follow up in 5-6 months for treatment if needed in the future Electronic Signature on File Electronically Reviewed/Signed by: Lisbeth Villatoro DPM Author Signature Dt/Tm:04/06/2024 03:53 PM Division of Sports Medicine CLR Patient Care team information Care Team Personnel Name: DO Doss Laura L Position: Referring DIRECT Member Role: Primary Care Provider Address: [address] [place] [id number] [place]
--- OUTSIDE RECORDS SUMMARY | 2024-08-13 05:35 | External Medical Summary | Summary of Care ---
Author Name Unknown Organization [facility] Address [address] [place] [address] Phone [phone] Care Team Providers Care Potato Chip Fryer Name Role Phone Charity Harris DO Primary Care Provider Reason for Visit * Reason Comments eRx-Medication Refill Encounter Details Date Type Department Care Team (Late st Contact Info) Description 03/21/2024 Refill [facility] [address] [place] [address] Charity Harris DO [address] [place] [address] Dyslipidemia, goal LDL below 100; Type 2 diabetes mellitus with hemoglobin A1c goal of less than 8.0% ([facility]) Allergies Active Allergy Reactions Criticality Noted Date Comments Sulfamethoxazole-Trimethoprim Hives Medium 2008 Hives documented as of this encounter (statuses as of 03/22/2024) Medications Medication Sig Dispensed Refills Start Date [...] not taking.Reported on 08/26/2023 FreeStyle Litzy 2 [place] Device Use as directed. Supplied by [employer] Active FreeStyle Litzy 2 Sensor Use as directed. Change every 14 days. Supplied by [employer] ( ) Active FreeStyle Litzy 2 SensorIndications: [...] TIMES DAILY 400 Each 3 4 Active Insulin Degludec 100 UNIT/ML Subcutaneous Solution (Tresiba)Indicatio ns:Type 2 diabetes mellitus with hemoglobin A1c goal of less than 8.0% (HCC) Inject 10 units under the skin once daily. 15 mL 1 4 Active Additional Information Patient taking differently: 8 Units, Inject 8 units under the skin once daily., Reported on 10/28/2023 NovoLOG FlexPen 100 UNIT/ML Subcutaneous Solution Pen-injector [...] THE MORNING 30 Tablet 5 4 Active Levothyroxine Sodium 75 MCG Oral TabletIndications: Hypothyroidism due to acquired atrophy of thyroid TAKE 1 TABLET BY MOUTH ONCE DAILY AT LEAST 30 MINUTES PRIOR TO BREAKFAST OR OTHER MEDS 90 Tablet 4 Active Losartan Potassium 25 MG Oral [...] THE MORNING 90 Tablet 2 4 Active Atorvastatin Calcium 40 MG Oral Tablet (Lipitor)Indicatio ns:Dyslipidemia, goal LDL below 100,Type 2 diabetes mellitus with hemoglobin A1c goal of less than 8.0% (HCC) TAKE 1 TABLET BY MOUTH IN THE MORNING 90 Tablet 4 03/22/20 24 Discontinued documented as of this encounter (statuses as of 03/22/2024) Active Problems Problem Noted Date Diagnosed Date [...] as of this encounter (statuses as of 03/22/2024) Resolved Problems Problem Noted Date Diagnosed Date [...] as of this encounter (statuses as of 03/22/2024) Immunizations Name Administration Dates Next Due COVID-19 mRNA, LNP-s, No Pre serve, 2-Dose Series (Pfizer) 08/07/2020,07/17/2020 Pneumococcal Conjugate Vacc, 13 Valent (Prevnar) 05/24/2015 Pneumococcal Polysaccharide PPV23 (Pneumovax) 11/24/2016,05/19/2006 Seasonal Influenza Virus Vac cine, Unspecified Formulation 05/03/2019,04/12/2018,03/13/2017,05/29,03/14/2014,05/13/2013,04/03/2010 ,03/30/2009,04/19/2007,04/12/2006 Seasonal Influenza, High Dos e, Trivalent, PF, IM (Fluzone HD) 05/03/2019 Seasonal Influenza, PF, 6 M & above, IM , (FluLaval or Fluzone) 04/12/2018,03/13/2017 Seasonal Influenza, Quadriva lent Hd, 65+ Yrs 04/23/2023 Seasonal Influenza, Quadriva lent, No Preserve, IM 05/29/2016 Seasonal Influenza, Trivalen t, (IIV3), with Preserv, (Fluzone) 04/30/2015,03/14/2014,05/13/2013,03/19,04/03/2010,04/19/2007,04/12/2006 documented as of this encounter Social History [...] encounter Miscellaneous Notes * Telephone Encounter - Evonne Chan RPh - 03/22/2024 3:56 PM EDTSigned Prescriptions: Disp Refills Atorvastatin Calcium 40 MG Oral Tablet (Li*90 Tab*2 Sig: TAKE 1 TABLET BY MOUTH IN THE MORNINGAuthorizing Provider: CHARITY HARRIS User: EVONNE CHAN MA documented in this encounter Plan of Treatment Upcoming Encounters Date Type Department Care Team (Late st Contact Info) Description 04/14/2024 2:30 PM EDT [facility] [place] [address] [facility] [address] [facility] [address] [place] [facility] [place] [address] 08/25/2024 9:30 AM EST Office Visit Family Practice, [place] [address] [place] [address] Charity Harris DO [address], [place] [id number] Scheduled Procedures Name Priority Associated Diagnoses Date/Ti me COLONOSCOPY FLEXIBLE PROXIMAL DIAGNOSTIC Recall History of colon polyps Health Maintenance Due Date Last Done Comments Hepatitis B Vaccine (3 of 3 - 19+ 3-dose series) 04/12/2000 12/12/1999, 11/11/1999, 10/12/1999 Adult Wellness Visit 02/03/2012 Colonoscopy 05/04/2023 05/04/2018, 04/13, 02/07/2015, Additional history exists DXA Scan 12/05/2023 12/04/2020, 08/14, 03/20/2011, Additional history exists COVID-19 Vaccine (3 - 2022- season) 2024 08/07/2020, 07/17/2020 Influenza Vaccine (FLU [...] (Patient Declined After Education) GFR 08/17/2024 02/15/2024, 0907/2022, 12/11/2022, Additional history exists HbA1c 08/17/2024 02/15/2024, 08/13, 03/13/2023, Additional history exists B-12 08/26/2024 08/26/2023, 08/2022, 02/21/2021, Additional history exists CKD HGB USE SMARTSET 74039 08/26/202408/26, 08/14/2022, 02/21/2021, Additional history exists CKD PHOS USE SMARTSET 79449 08/26/2024 08/26/2023, 0 08/14/2022 Diabetic Eye Exam 11/04/2024 11/05/2023, , 08/25/2018, Additional history exists Albumin/Creatinine Ratio 02/14/2025 024, 12/11/2022, 08/26/2021, Additional history exists Depression Screening 02/14/2025 02/15/2024 TSH 02/14/2025 02/15/2024, 06/0 07/2022, 01/03/2022, Additional history exists Pneumococcal Vaccine: 65+ Years [...] as of this encounter Visit Diagnoses Diagnosis Dyslipidemia, goal LDL below 100 Other and unspecified hyperlipidemia Type 2 diabetes mellitus with hemoglobin A1c goal of less than 8.0% (HCC) documented in this encounter Advance Directives Documents on File Type Date Recorded Patient Caul Fat Puller Expl anation Advance Directives and Living Will 10/21/2022 ADVANCE DIRECTIVE / LIVING WILL Power of Jewelry Sales Representative 10/21/2022 POWER OF A TTORNEY * No Code Status (Latest Code Status on File) Date Activated Date Inactivated Comments 01/11/2004 9:29 AM 01/11/2004 9:29 AM Care Teams Potato Chip Fryer Relationship Specialty Start Date End Date Charity Harris DO [address] [facility] [place] [address] PCP - General Family Medicine 08/14/22 documented as of this encounter
--- OUTSIDE RECORDS SUMMARY | 2024-08-13 05:35 | External Medical Summary | Summary of Care ---
Author Name Unknown Organization [facility] Address [address] [place] [address] Phone [phone] Care Team Providers Care Retail And Restaurant Associate Name Role Phone Charity Harris DO Primary Care Provider Reason for Visit * Reason Comments eRx-Medication Refill Encounter Details Date Type Department Care Team (Late st Contact Info) Description 02/21/2024 Refill [facility] [address] [place] [address] Charity Harris DO [address] [place] [address] Type 2 diabetes mellitus with hemoglobin A1c goal of less than 8.0% ([facility]) Allergies Active Allergy Reactions Criticality Noted Date Comments Sulfamethoxazole-Trimethoprim Hives Medium 2008 Hives documented as of this encounter (statuses as of 02/23/2024) Medications Medication Sig Dispensed Refills Start Date [...] not taking.Reported on 08/26/2023 FreeStyle Litzy 2 [place] Device Use as directed. Supplied by [employer] Active FreeStyle Litzy 2 Sensor Use as directed. Change every 14 days. Supplied by [facility] ( ) Active FreeStyle Litzy 2 SensorIndications: [...] THE MORNING 30 Tablet 5 4 Active Atorvastatin Calcium 40 MG Oral Tablet (Lipitor)Indicatio ns:Dyslipidemia, goal LDL below 100,Type 2 diabetes mellitus with hemoglobin A1c goal of less than 8.0% (HCC) TAKE 1 TABLET BY MOUTH IN THE MORNING 90 Tablet 4 Active Levothyroxine Sodium 75 MCG Oral [...] twice daily 180 Tablet 1 4 Active metFORMIN HCl 1000 MG Oral Tablet (Glucophage)Indica tions:Type 2 diabetes mellitus with hemoglobin A1c goal of less than 8.0% (HCC) TAKE 1 TABLET BY MOUTH TWICE DAILY FOR SUGAR CONTROL 180 Tablet 1 4 02/23/20 24 Discontinued documented as of this encounter (statuses as of 02/23/2024) Active Problems Problem Noted Date Diagnosed Date [...] as of this encounter (statuses as of 02/23/2024) Resolved Problems Problem Noted Date Diagnosed Date [...] as of this encounter (statuses as of 02/23/2024) Immunizations Name Administration Dates Next Due COVID-19 mRNA, LNP-s, No Pre serve, 2-Dose Series (Pfizer) 08/07/2020,07/17/2020 Pneumococcal Conjugate Vacc, 13 Valent (Prevnar) 05/24/2015 Pneumococcal Polysaccharide PPV23 (Pneumovax) 11/24/2016,05/19/2006 Seasonal Influenza Virus Vac cine, Unspecified Formulation 05/03/2019,04/12/2018,03/13/2017,05/29,03/14/2014,05/13/2013,04/03/2010 ,03/30/2009,04/19/2007,04/12/2006 Seasonal Influenza, PF, 6 M & above, IM , (FluLaval or Fluzone) 04/12/2018,03/13/2017 Seasonal Influenza, Quadriva lent Hd, 65+ Yrs 04/23/2023 Seasonal Influenza, Quadriva lent, No Preserve, IM 05/29/2016 Seasonal Influenza, Split, I IV3, With Preserve, Inj 04/30/2015,03/14/2014,05/13/2013,03/19,04/03/2010,04/19/2007,04/12/2006 Seasonal Influenza, Trivalen t, High Dose, No Preserve, IM 05/03/2019 documented as of this encounter Social History [...] encounter Miscellaneous Notes * Telephone Encounter - Keren Reeves [facility] - 02/23/2024 12:36 PM EDTSigned Prescriptions: Disp Refills metFORMIN HCl 1000 MG Oral Tablet (Glucoph*180 Ta*1 Sig: Take 1 tablet by mouth twice dailyAuthorizing Provider: CHARITY HARRIS User: KEREN REEVES---- documented in this encounter Plan of Treatment Upcoming Encounters Date Type Department Care Team (Late st Contact Info) Description 04/14/2024 2:30 PM EDT [facility] [place] [address] [facility] [address] [place], [facility] [address] [facility] [place] [phone] 08/25/2024 9:30 AM EST Office Visit [facility], [place] [address] [facility] [place] [phone] Charity Harris DO [address] [place] [address] Scheduled Procedures Name Priority Associated Diagnoses Date/Ti me COLONOSCOPY FLEXIBLE PROXIMAL DIAGNOSTIC Recall History of colon polyps Health Maintenance Due Date Last Done Comments Hepatitis B Vaccine (3 of 3 - 19+ 3-dose series) 04/12/2000 12/12/1999, 11/11/1999, 10/12/1999 Adult Wellness Visit 02/03/2012 COVID-19 Vaccine ( season) 2023 08/07/2020, 07/17/2020 Colonoscopy 05/04/2023 05/04/2018, 04/13, 02/07/2015, Additional history exists DXA Scan 12/05/2023 12/04/2020, 08/14, 03/20/2011, Additional history exists Influenza Vaccine (FLU shot) (#1) 2024 04/23/2023, 05/03/2019, 05/03/2019, Additional history exists DTaP,Tdap,and Td Vaccines (2 - Td or Tdap) 05/13/2024 [...] Additional history exists CKD HGB USE SMARTSET 18466 08/26/202408/26, 08/14/2022, 02/21/2021, Additional history exists CKD PHOS USE SMARTSET 44716 08/26/2024 08/26/2023, 0 08/14/2022 Diabetic Eye Exam [...] Documents on File Type Date Recorded Patient Manager Of Project Management Expl anation Advance Directives and Living Will 10/21/2022 ADVANCE DIRECTIVE / LIVING WILL Power of Shoe Singer 10/21/2022 POWER OF A TTORNEY * No Code Status (Latest Code Status on File) Date Activated Date Inactivated Comments 01/11/2004 9:29 AM 01/11/2004 9:29 AM Care Teams Retail And Restaurant Associate Relationship Specialty Start Date End Date Charity Harris DO [address] [address] PCP - General Family Medicine 08/14/22 documented as of this encounter
--- OUTSIDE RECORDS SUMMARY | 2024-08-13 05:35 | External Medical Summary | Summary of Care ---
Author Name Unknown Organization [facility] Address [address] [place] [address] Phone [phone] Care Team Providers Care Ultrasonic Seaming Machine Operator Name Role Phone Yadira Doss DO Primary Care Provider [phone] Reason for Referral * Ancillary Services (Within 10 days (routine)) - Authorized Specialty Diagnoses / Procedures Referred By Jennifer boothe Referred To Contact Gastroenterology Diagnoses Screen for colon cancer Yadira Doss DO [address] [place] [address] Referral ID Status Reason Start Date Expiration Date Visits Requested Visits Authorized [id number] Authorized Ancillary Services Required 02/15/[phone] Question Answer Referral Priority Within 10 days (routine) Where should this appointment be scheduled? [facility] Comments ALERT: Do not order for pediatric patients (18 years or younger). Cancel off screen and order PEDS GASTROENTEROLOGY CONSULT (Type: 1 visit only-Evaluate and Treat) The following Pt. Instructions are available: - Gastro Colonoscopy Prep Instructions [[id number]] - Gastro Colonoscopy Prep Instructions (Lao Version) [[id number]] Go to the Pt. Instructions section within the Visit Navigator to access. Colonoscopy ASGE Guidelines: Average risk screening (begin at age 50, 10 year intervals) ADDITIONAL INFORMATION 1. Is the patient on Coumadin? No 2. Is the patient on Pradaxa? No Reason for Visit * Reason Comments Follow Up Return in 3 months Encounter Details Date Type Department Care Team (Latest Contact Info) Description 02/15/2024 8:30 AM EDT Office Visit [facility] [address] [place] [address] Yadira Doss DO [address], [place] [id number] Hypothyroidism due to acquired atrophy of thyroid*; Postmenopausal status, age-related; Dyslipidemia; Type 2 diabetes mellitus with hemoglobin A1c goal of less than 8.0% ([facility]); Screen for colon cancer Allergies Active Allergy Reactions Criticality Noted Date Comments Sulfamethoxazole-Trimethoprim Hives Medium 2008 Hives documented as of this encounter (statuses as of 02/15/2024) Medications Medication Sig Dispensed Refills Start Date End Date Status Clobetasol Propionate 0.05 % External Solution APPLY ONE APPLICATION TOPICALLY TWICE A DAY TO AFFECTED AREA(S) ON SCALP 11/16/2020 Active Zoster Vac Recomb Adjuvanted 50 MCG/0.5ML Intramuscular Suspension Reconstituted (Shingrix)Indication s:Need for zoster vaccination Inject 0.5 mL into a large muscle now and repeat dose in 60 to 180 days 1 Each 1 03/24/2022 Active Additional Information Patient not taking.Reported on 08/26/2023 FreeStyle Litzy 2 [place] Device Use as directed. Supplied by [employer] Active FreeStyle Litzy 2 Sensor Use as directed. Change every 14 days. Supplied by [employer] ( ) Active FreeStyle Litzy 2 SensorIndications:Ty pe 2 diabetes mellitus with hemoglobin A1c goal of less than 8.0% ([facility]) Use as directed. Change every 14 days. 2 Each 08/18/2023 Active Omeprazole 20 MG Oral Capsule Delayed Release (PriLOSEC)Indication s:Esophageal ring, acquired TAKE 1 CAPSULE BY MOUTH ONCE DAILY 1 HOUR BEFORE THE FIRST MEAL OF THE DAY 90 Capsule 1 08/28/2023 Active BD Pen Needle Rolanda 2nd Gen 32G X 4 MM (Insulin Pen Needle)Indications:T ype 2 diabetes mellitus with hemoglobin A1c goal of less than 8.0% ([facility]) USE 4 TIMES DAILY 400 Each 3 08/31/2023 Active metFORMIN HCl 1000 MG Oral Tablet (Glucophage)Indicati ons:Type 2 diabetes mellitus with hemoglobin A1c goal of less than 8.0% (HCC) TAKE 1 TABLET BY MOUTH TWICE DAILY FOR SUGAR CONTROL 180 Tablet 1 09/03/2023 Active Insulin Degludec 100 UNIT/ML Subcutaneous Solution (Tresiba)Indications :Type 2 diabetes mellitus with hemoglobin A1c goal of less than 8.0% (HCC) Inject 10 units under the skin once daily. 15 mL 1 09/15/2023 Active Additional Information Patient taking differently: 8 Units, Inject 8 units under the skin once daily., Reported on 10/28/2023 NovoLOG FlexPen 100 UNIT/ML Subcutaneous Solution Pen-injector (insulin aspart)Indications:T ype 2 diabetes mellitus with hemoglobin A1c goal of less than 8.0% (HCC) Inject 8 units before breakfast, 10 units before lunch, and 12 units before supper plus CF of 1:30 over 150 following chart provided. Skip if skipping a meal. 45 mL 3 09/15/2023 Active Chlorthalidone 25 MG Oral Tablet (Hygroton)Indication s:HTN, goal below 130/80 TAKE 1 TABLET BY MOUTH IN THE MORNING 30 Tablet 5 12/02/2023 Active Atorvastatin Calcium 40 MG Oral Tablet (Lipitor)Indications :Dyslipidemia, goal LDL below 100,Type 2 diabetes mellitus with hemoglobin A1c goal of less than 8.0% (HCC) TAKE 1 TABLET BY MOUTH IN THE MORNING 90 Tablet 12/28/2023 Active Levothyroxine Sodium 75 MCG Oral TabletIndications:Hy pothyroidism due to acquired atrophy of thyroid TAKE 1 TABLET BY MOUTH ONCE DAILY AT LEAST 30 MINUTES PRIOR TO BREAKFAST OR OTHER MEDS 90 Tablet 2024 Active Losartan Potassium 25 MG Oral Tablet (Cozaar)Indications: HTN, goal below 130/80 Take 1 Tablet by mouth in the morning. 90 Tablet 02/11/2024 Active documented as of this encounter (statuses as of 02/15/2024) Active Problems Problem Noted Date Diagnosed Date [...] as of this encounter (statuses as of 02/15/2024) Resolved Problems Problem Noted Date Diagnosed Date [...] as of this encounter (statuses as of 02/15/2024) Immunizations Name Administration Dates Next Due COVID-19 [...] Former Cigarettes 0.2 10 Smokeless Tobacco: Never Tobacco Cessation:Counseling Given: Not Answered Alcohol Use Standard Drinks/Week Comments Yes 0 (1 standard drink = 0.6 oz pur e alcohol) rare social PHQ-2 Answer Date Recorded PHQ Adult Total Score 1 08/14/2022 Hunger Vital Sign Answer Date Recorded Within the past 12 months, y ou worried that your food would run out before you got the money to buy more. Never true 08/14/19 23 Within the past 12 months, t he food you bought just didn't last and you didn't have money to get more. Never true 08/14/2022 Utilities Answer Date Recorded Do you have trouble paying y our heating, water, or electric bill? (Adult - for ages 18 years and over) Not on file 12/29/2023 Is your family able to pay t he heat, water, or electric bill? (Household - for ages 0-17 years) Not on file 12/29/2023 Does your family have access to good internet? (Household - for ages 0-17 years) Not on file 12/29/2023 Social Connections Answer Date Recorded How often do you feel lonely or isolated from those around you? (Adult - for ages 18 years and over) Not on file 12/29/2023 Sex and Gender Information Value Date Recorded Sex Assigned at Female 08/14/2022 11:47 AM EST Gender Identity Female 08/14/2022 11:47 AM EST Sexual Orientation Straight 08/14/2022 11 :47 AM EST Job Start Date Occupation Industry Not on file Not on file Not on file documented as of this encounter Last Filed Vital Signs Vital Sign Reading Time Taken Comments Blood Pressure 128/66 02/15/2024 8:12 AM EDT Pulse 77 02/15/2024 8:12 AM EDT Temperature 36.3 C (97.4 F) 02/15/2024 8:12 AM ED T Respiratory Rate 18 02/15/2024 8:12 AM EDT Oxygen Saturation 98% 02/15/2024 8:12 AM EDT Inhaled Oxygen Concentration - - Weight 89.5 kg (197 lb 6.4 oz) 02/15/2024 8:12 A M EDT Height 160 cm (5' 3") 02/15/2024 8:12 AM EDT Body Mass Index 34.97 02/15/2024 8:12 AM EDT documented in this encounter Progress Notes * Yadira Doss DO - 02/15/2024 8:44 AM EDT Subjective: Ena Cano is a 79 year old female. Chief Complaint Patient presents with Follow Up Return in 3 months HPI: 79 year old female with hx of type 2 diabetes, CRI, dyslipidemia, hypothyroidism, and on meds as listed she follows with [facility] for her diabetic care, no issues. She is due for labs. Insulin doses were reviewed she is still working at [employer] 3 times a week and no issues. No hospital stays, no falls. Driving locally. Cough better. Due for colonoscopy and willing to get arranged. PHM: Patient Active Problem List Diagnosis Type 2 diabetes mellitus with hemoglobin A1c goal of less than 8.0% ([facility]) Dyslipidemia Esophageal ring, acquired Hypothyroidism due to acquired atrophy of thyroid HTN, goal below 130/80 Gastroesophageal reflux disease without esophagitis Chronic kidney disease, stage 3a ([facility]) Low bone density for age Polyp of ascending colon Age-related cataract of both eyes Current Outpatient Medications Medication Sig Dispense Refill Clobetasol Propionate 0.05 % External Solution APPLY ONE APPLICATION TOPICALLY TWICE A DAY TO AFFECTED AREA(S) ON SCALP [email or web address] Litzy 2 [place] Device Use as directed. Supplied by [employer] FreeeFlixyle Litzy 2 Sensor Use as directed. Change every 14 days. Supplied by [employer] ( ) PerminovaStyle Litzy 2 Sensor Use as directed. Change every 14 days. 2 Each 0 Omeprazole 20 MG Oral Capsule Delayed Release (PriLOSEC) TAKE 1 CAPSULE BY MOUTH ONCE DAILY 1 HOUR BEFORE THE FIRST MEAL OF THE DAY 90 Capsule 1 BD Pen Needle Rolanda 2nd Gen 32G X 4 MM (Insulin Pen Needle) USE 4 TIMES DAILY 400 Each 3 metFORMIN HCl 1000 MG Oral Tablet (Glucophage) TAKE 1 TABLET BY MOUTH TWICE DAILY FOR SUGAR [id number] Tablet 1 Insulin Degludec 100 UNIT/ML Subcutaneous Solution (Tresiba) Inject 10 units under the skin once daily. (Patient taking differently: 8 Units. Inject 8 units under the skin once daily.) 15 mL 1 NovoLOG FlexPen 100 UNIT/ML Subcutaneous Solution Pen-injector (insulin aspart) Inject 8 units before breakfast, 10 units before lunch, and 12 units before supper plus CF of 1:30 over 150 following chart provided. Skip if skipping a meal. 45 mL 3 Chlorthalidone 25 MG Oral Tablet (Hygroton) TAKE 1 TABLET BY MOUTH IN THE MORNING 30 Tablet 5 Atorvastatin Calcium 40 MG Oral Tablet (Lipitor) TAKE 1 TABLET BY MOUTH IN THE MORNING 90 Tablet 0 Levothyroxine Sodium 75 MCG Oral Tablet TAKE 1 TABLET BY MOUTH ONCE DAILY AT LEAST 30 MINUTES PRIORTO BREAKFAST OR OTHER MEDS 90 Tablet 0 Losartan Potassium 25 MG Oral Tablet (Cozaar) Take 1 Tablet by mouth in the morning. 90 Tablet 0 Zoster Vac Recomb Adjuvanted 50 MCG/0.5ML Intramuscular Suspension Reconstituted (Shingrix) Inject 0.5 mL into a large muscle now and repeat dose in 60 to 180 days (Patient not taking: Reported on 08/26/2023) 1 Each 1 No current facility-administered medications for this visit. Review of patient's allergies indicates: Allergen Reactions Sulfamethoxazole-Trimethoprim Hives Hives Objective: BP 128/66 | Pulse 77 | Temp 36.3 C (97.4 F) (Tympanic) | Resp 18 | Ht 1.6 m (5' 3") | Wt 89.5 kg (197 lb 6.4 oz) | SpO2 98% | BMI 34.97 kg/m | BSA 1.99 m Physical Exam: General: alert, healthy, and no distress Heart: regular rate & rhythm, no murmur, and no gallops Lungs: chest symmetric with normal AP diameter, no chest deformities noted, no chest wall tenderness, lungs clear to auscultation Abdomen: abdomen soft, non-tender, normal bowel sounds, and no masses or organomegaly Extremities: no edema ASSESSMENT/PLAN: Hypothyroidism due to acquired atrophy of thyroid (Primary) Tsh to get completed today Postmenopausal status, age-related Dyslipidemia Type 2 diabetes mellitus with hemoglobin A1c goal of less than 8.0% ([facility]) Screen for colon cancer - COLONOSCOPY, GI REFERRAL OP Follow Up: Return in about 3 months (around 05/17/2024) for Labs Today. | For: Labs Today Yadira Doss DO documented in this encounter Nursing Notes * Radha Murillo LPN - 02/15/2024 8:12 AM EDT The patient has been properly identified by confirmation of name and date of . Chief Complaint Patient presents with Follow Up Return in 3 months Patient states she has no concerns today documented in this encounter Plan of Treatment Upcoming Encounters Date Type Department Care Team (Late st Contact Info) Description 04/14/2024 2:30 PM EDT Office Visit Pharmacy, [facility] [address] [place] [address] [facility] [address] [place] [address] 08/25/2024 9:30 AM EST Office Visit [facility] [address] [place] [phone] Yadira Doss DO [address] [place] [address] Scheduled Procedures Name Priority Associated Diagnoses Date/Ti me COLONOSCOPY FLEXIBLE PROXIMAL DIAGNOSTIC Recall History of colon polyps Scheduled Referrals Name Type Priority Associated Diagnoses Orde r Schedule COLONOSCOPY, GI REFERRAL OP Referral Within 10 days (routine) Screen for colon cancer Ordered: 02/15/2024 Health Maintenance Due Date Last Done Comments Hepatitis B Vaccine (3 of 3 - 19+ 3-dose series) 04/12/2000 12/12/1999, 11/11/1999, 10/12/1999 Colonoscopy 05/04/2023 05/04/2018, 04/13, 02/07/2015, Additional history exists GFR 09/11/2023 03/13/2023, 07/2022, 08/14/2022, Additional history exists DXA Scan 12/05/2023 12/04/2020, 08/14, 03/20/2011, Additional history exists Albumin/Creatinine Ratio 12/12/2023 023, 08/26/2021, 12/30/2018, Additional history exists TSH 12/12/2023 12/11/2022, 12/12, 10/31/2020, Additional history exists COVID-19 Vaccine (2022- season) 2024 08/07/2020, 07/17/2020 Postponed from 03/13/2023 (Patient Declined After Education) HbA1c 02/24/2024 08/26/2023, 07/2022, 12/11/2022, Additional history exists Influenza Vaccine (FLU shot) [...] Postponed from 08/14/2023 (Patient Declined After Education) B-12 08/26/2024 08/26/2023, /08/2022, 02/21/2021, Additional history exists CKD HGB USE SMARTSET 20461 08/26/202408/26, 08/14/2022, 02/21/2021, Additional history exists CKD PHOS USE SMARTSET [id number] 08/26/2024 08/26/2023, 0 08/14/2022 Diabetic Eye Exam 11/04/2024 11/05/2023, , 08/25/2018, Additional history exists Depression Screening 02/14/2025 02/15/2024 Pneumococcal Vaccine: 65+ Years Completed 11/24/2016, 05/24/2015, [...] Diagnosis Hypothyroidism due to acquired atrophy of thyroid- Primary Postmenopausal status, age-related Asymptomatic postmenopausal status (age-related) (natural) Dyslipidemia Other and unspecified hyperlipidemia Type 2 diabetes mellitus with hemoglobin A1c goal of less than 8.0% (HCC) Screen for colon cancer Special screening for malignant neoplasms, colon documented in this encounter Advance Directives Documents on File Type Date Recorded Patient Physics Department Chair Expl anation Advance Directives and Living Will 10/21/2022 ADVANCE DIRECTIVE / LIVING WILL Power of Radius Corner Machine Operator 10/21/2022 POWER OF A TTORNEY * No Code Status (Latest Code Status on File) Date Activated Date Inactivated Comments 01/11/2004 9:29 AM 01/11/2004 9:29 AM Care Teams Ultrasonic Seaming Machine Operator Relationship Specialty Start Date End Date Yadira Doss DO [address] [facility] [place] [id number] PCP - General Family Medicine 08/14/22 documented as of this encounter
--- OUTSIDE RECORDS SUMMARY | 2024-08-13 05:35 | External Medical Summary | Summary of Care ---
Author Name Unknown Organization [facility] Address [address] [place] [address] Phone [phone] Care Team Providers Care Mortar Worker Name Role Phone Reynahuma Yadira Alejandro BLAND Primary Care Provider Reason for Visit * Reason Onset Date Comments Other 03/09/2024 Encounter Details Date Type Department Care Team (Late st Contact Info) Description 03/09/2024 Telephone Centralized Clinical Pharmacy Services, Elizabeth Ervin [address] [place] [address] [place] [address] [facility] [address], [place] [phone] Other Allergies Active Allergy Reactions Criticality Noted Date Comments Sulfamethoxazole-Trimethoprim Hives Medium 2008 Hives documented as of this encounter (statuses as of 03/09/2024) Medications Medication Sig Dispensed Refills Start Date [...] Additional Information Patient not taking.Reported on 08/26/2023 Data[employer] 2 [place] Device Use as directed. Supplied by [employer] Active FreeStyle Litzy 2 Sensor Use as directed. Change every 14 days. Supplied by [facility] Technical Machine ( ) Active FreeStyle Litzy 2 SensorIndications:Ty [...] TIMES DAILY 400 Each 3 08/31/2023 Active Insulin Degludec 100 UNIT/ML Subcutaneous Solution [...] twice daily 180 Tablet 1 02/23/2024 Active documented as of this encounter (statuses as of 03/09/2024) Active Problems Problem Noted Date Diagnosed Date [...] as of this encounter (statuses as of 03/09/2024) Resolved Problems Problem Noted Date Diagnosed Date [...] as of this encounter (statuses as of 03/09/2024) Immunizations Name Administration Dates Next Due COVID-19 [...] encounter Miscellaneous Notes * Telephone Encounter - Stephania Mcwliliams RPh - 03/09/2024 9:45 AM EDT Patient Phone Numbers Spoke to patient. BG before breakfast was 159, she took 8 units of tresiba and 10 units of novolog,and her sugar was 65-69 an hour or so after. Will decrease her breakfast insulin dose. See new chart. Diabetic Medications: Metformin 1000mg twice daily Tresiba 8 units daily DEC Novolog 9-12-12 units with meals + CF 1:30 over 140 [see chart included in TE from 03/09/24] GFR 67 as of 03/13/23 03/09/24 Fast Acting Insulin: Novolog To find insulin [...] of fast acting insulin Blood Sugar levels Am meal Lunch PM Meal No Food 70 to 109 8 11 11 0 110 to 139 9 12 12 0 140 to 169 9 12 12 0 170 to 199 10 13 13 1 200 to 229 11 14 14 2 230 to 259 12 15 15 3 260 to 289 13 16 16 4 290 to 319 14 17 17 5 320 to 349 15 18 18 6 350 to 379 16 19 19 7 Parameters fixed 9 12 12 0 holden 30 over 140 Follow up as scheduled. Stephania Mcwilliams PharmD, BCACP Clinical Pharmacist Medication Therapy Disease Management 03/09/2024, 9:51 AM * Telephone Encounter - Ifeoma Gómez PHARM Tech - 03/09/2024 9:17 AM EDT Caller's name: Ena Preferred call back number(OFFICE NUMBER FOR ): [phone] Reason for call: Low blood sugarPt calling to speak with the [facility] about her low sugars, they are in the 60's. She would like a return call. Thank you, Ifeoma Gómez Rn Lactation Centralized Clinical Pharmacy Services 03/09/2024,9:17 AM documented in this encounter Plan of Treatment Upcoming Encounters Date Type Department Care Team (Late st Contact Info) Description 04/14/2024 2:30 PM EDT Office Visit Pharmacy, [place] [address] [place] [address] [facility] [address] [place] [address] 08/25/2024 9:30 AM EST Office Visit [facility], [place] [address] [place] [phone] Yadira Doss DO [address] [place] [address] Scheduled Procedures Name Priority Associated Diagnoses Date/Ti me COLONOSCOPY FLEXIBLE PROXIMAL DIAGNOSTIC Recall History of colon polyps Health Maintenance Due Date Last Done Comments Hepatitis B Vaccine (3 of 3 - 19+ 3-dose series) 04/12/2000 12/12/1999, 11/11/1999, 10/12/1999 Adult Wellness Visit 02/03/2012 COVID-19 Vaccine (2022- season) 2023 08/07/2020, 07/17/2020 Colonoscopy 05/04/2023 05/04/2018, [...] Additional history exists CKD HGB USE SMARTSET 42053 08/26/202408/26, 08/14/2022, 02/21/2021, Additional history exists CKD PHOS USE SMARTSET 16645 08/26/2024 08/26/2023, 0 08/14/2022 Diabetic Eye Exam 11/04/2024 11/05/2023, , 08/25/2018, Additional history exists Albumin/Creatinine Ratio 02/14/2025 024, 12/11/2022, 08/26/2021, Additional history exists Depression Screening 02/14/2025 02/15/2024 TSH 02/14/2025 02/15/2024, 060 07/2022, 01/03/2022, Additional history exists Pneumococcal Vaccine: [...] hemoglobin A1c goal of less than 8.0% ([facility])- Primary documented in this encounter Advance Directives Documents on File Type Date Recorded Patient Smoking Tobacco Packing Machine Hand Expl anation Advance Directives and Living Will 10/21/2022 ADVANCE DIRECTIVE / LIVING WILL Power of Forest Landscape Ecology Professor 10/21/2022 POWER OF A TTORNEY * No Code Status (Latest Code Status on File) Date Activated Date Inactivated Comments 01/11/2004 9:29 AM 01/11/2004 9:29 AM Care Teams Mortar Worker Relationship Specialty Start Date End Date Yadira Doss DO [address] [place] [address] PCP - General Family Medicine 08/14/22 documented as of this encounter
--- OUTSIDE RECORDS SUMMARY | 2024-08-13 05:35 | External Medical Summary | Summary of Care ---
Author Name Unknown Organization [facility] Address [address] [place] [address] Phone [phone] Care Team Providers Care E Mail System Administrator Name Role Phone Charity Harris DO Primary Care Provider Reason for Visit * Reason Comments eRx-Medication Refill Encounter Details Date Type Department Care Team (Late st Contact Info) Description 04/19/2024 Refill [facility] [address] [place] [address] Charity Harris DO [address] [place] [address] Hypothyroidism due to acquired atrophy of thyroid Allergies Active Allergy Reactions Criticality Noted Date Comments Sulfamethoxazole-Trimethoprim Hives Medium 2008 Hives documented as of this encounter (statuses as of 04/21/2024) Medications Medication Sig Dispensed Refills Start Date [...] not taking.Reported on 08/26/2023 FreeStyle Litzy 2 [place] Device Use as directed. Supplied by [employer] Active FreeStyle Litzy 2 Sensor Use as directed. Change every 14 days. Supplied by [facility] [employer] ( ) Active FreeStyle Litzy 2 SensorIndications: [...] OTHER MEDS 90 Tablet 3 4 Active Levothyroxine Sodium 75 MCG Oral TabletIndications: Hypothyroidism due to acquired atrophy of thyroid TAKE 1 TABLET BY MOUTH ONCE DAILY AT LEAST 30 MINUTES PRIOR TO BREAKFAST OR OTHER MEDS 90 Tablet 4 04/21/20 24 Discontinued documented as of this encounter (statuses as of 04/21/2024) Active Problems Problem Noted Date Diagnosed Date [...] as of this encounter (statuses as of 04/21/2024) Resolved Problems Problem Noted Date Diagnosed Date [...] as of this encounter (statuses as of 04/21/2024) Immunizations Name Administration Dates Next Due COVID-19 [...] encounter Miscellaneous Notes * Telephone Encounter - Janet Norwood RPh - 04/21/2024 7:29 AM EDTSigned Prescriptions: Disp Refills Levothyroxine Sodium 75 MCG Oral Tablet 90 Tab*3 Sig: TAKE 1 TABLET BY MOUTH ONCE DAILY AT LEAST 30 MINUTES PRIOR TO BREAKFAST OR OTHER MEDSAuthorizing Provider: CHARITY HARRIS User: JANET NORWOOD documented in this encounter Plan of Treatment Upcoming Encounters Date Type Department Care Team (Late st Contact Info) Description 06/29/2024 2:00 PM EST [facility] [place] [address] [facility] [address] [facility] [address] [facility] [place] [address] 08/25/2024 9:30 AM EST Office Visit Family Practice, [place] [address] [place] [phone] Charity Harris, DO [address] [place] [address] Scheduled Procedures Name Priority Associated Diagnoses Date/Ti me COLONOSCOPY FLEXIBLE PROXIMAL DIAGNOSTIC Recall History of colon polyps Health Maintenance Due Date Last Done Comments Hepatitis B Vaccine (3 of 3 - 19+ 3-dose series) 04/12/2000 12/12/1999, 11/11/1999, 10/12/1999 Adult Wellness Visit 02/03/2012 Colonoscopy 05/04/2023 05/04/2018, 04/13, 02/07/2015, Additional history exists DXA Scan 12/05/2023 12/04/2020, 08/14, 03/20/2011, Additional history exists COVID-19 Vaccine ( - 2023- season) 2024 08/07/2020, 07/17/2020 Influenza Vaccine (FLU [...] Additional history exists CKD HGB USE SMARTSET 61629 08/26/202408/26, 08/14/2022, 02/21/2021, Additional history exists CKD PHOS USE SMARTSET 89616 08/26/2024 08/26/2023, 0 08/14/2022 Albumin/Creatinine Ratio 02/14/2025 [...] Documents on File Type Date Recorded Patient Can Sealer Expl anation Advance Directives and Living Will 10/21/2022 ADVANCE DIRECTIVE / LIVING WILL Power of Boxing Promoter 10/21/2022 POWER OF A TTORNEY * No Code Status (Latest Code Status on File) Date Activated Date Inactivated Comments 01/11/2004 9:29 AM 01/11/2004 9:29 AM Care Teams E Mail System Administrator Relationship Specialty Start Date End Date Charity Harris DO [address] [place] [address] PCP - General Family Medicine 08/14/22 documented as of this encounter
--- OUTSIDE RECORDS SUMMARY | 2024-08-13 05:35 | External Medical Summary | Summary of Care ---
Author Name Unknown Organization [facility] Address [address] [place] [address] Phone [phone] Care Team Providers Care Insulation Blanket Maker Name Role Phone Yadira Doss Alejandro BLAND Primary Care Provider [phone] Reason for Visit * Reason Comments Dosage Adjustment In Person (Anticoag Cl inic) Diabetes Management Encounter Details Date Type Department Care Team (Late st Contact Info) Description 04/14/2024 2:30 PM EDT Office Visit Pharmacy, [address] [address] [facility] [address] [place] [address] Type 2 diabetes mellitus with hemoglobin A1c goal of less than 8.0% ([facility])* Allergies Active Allergy Reactions Criticality Noted Date Comments Sulfamethoxazole-Trimethoprim Hives Medium 2008 Hives documented as of this encounter (statuses as of 04/14/2024) Medications Medication Sig Dispensed Refills Start Date [...] not taking.Reported on 08/26/2023 FreeStyle Litzy 2 [place] Device Use as directed. Supplied by [employer] Active FreeStyle Litzy 2 Sensor Use as directed. Change every 14 days. Supplied by [employer] ( ) Active FreeStyle Litzy 2 SensorIndications:Ty [...] THE MORNING 30 Tablet 5 12/02/2023 Active Levothyroxine Sodium 75 MCG Oral TabletIndications:Hy [...] THE MORNING 90 Tablet 2 03/22/2024 Active documented as of this encounter (statuses as of 04/14/2024) Active Problems Problem Noted Date Diagnosed Date [...] as of this encounter (statuses as of 04/14/2024) Resolved Problems Problem Noted Date Diagnosed Date [...] as of this encounter (statuses as of 04/14/2024) Immunizations Name Administration Dates Next Due COVID-19 mRNA, LNP-s, No Pre serve, 2-Dose Series ([employer]) 08/07/2020,07/17/2020 Pneumococcal Conjugate Vacc, 13 Valent (Prevnar) [...] on file documented as of this encounter Progress Notes * Yari Edmonds, [facility] - 04/14/2024 2:32 PM EDT Images from the original note were not included. Medication Therapy Disease Management Clinic - Diabetes Management Progress Note Ena Cano, identified by name and date of , is a 79 year old female being seen for diabetes management/education. Patient presents for return diabetic visit. DIABETES: Current diabetic medications: Metformin 1000mg twice daily Tresiba 8 units daily in AM Novolog 10-12-12 units with meals + CF 1:30 over 140 GFR 58 as of 02/15/24 Medication Injection Site: Abdomen Lifestyle: Diet: Trying to improve. Has been trying to better eating habits Glucose Review/SMBG: Readings obtained from patient device Hypoglycemia: Does your blood sugar go below 70 mg/dL? No, feels low Hyperglycemia symptoms present: none Recent Labs Units 02/15/24 0904 08/26/23 1128 03/13/23 1409 HEMOGLOBIN A1C - [facility] % 8.5* 8.9* 8.3* Recent Labs Units 02/15/24 0904 03/13/23 1409 [...] REVIEW: Health Maintenance Due Topic Date Due Hepatitis B Vaccine (3 of 3 - 19+ 3-dose series) 04/12/2000 Adult Wellness Visit Never done Colonoscopy 05/04/2023 DXA Scan 12/05/2023 Influenza Vaccine (FLU shot) (1) 03/13/2024 COVID-19 Vaccine ( season) 2024 ASSESSMENT & PLAN: ICD-10-CM 1. Type 2 diabetes mellitus with hemoglobin A1c goal of less than 8.0% (HCC) E11.9 BG Readings - Blood sugars uncontrolled. Blood glucose still remains fairly unchanged and high especially over night. Medications - Reviewed current regimen, patient is not adherent to regimen. Patient has been using her correction factor chart. She has not had any issues with her medications and no issues with lows. Due to the increase in blood glucose at lunch and also over night due to eating snacks will increase lunch time dose and will start a snack dose as she is going into the mid 350s. Diet, Exercise, Lifestyle - No significant lifestyle changes since last visit Patient is agreeable to SMBG daily Litzy. Patient aware to contact clinic if any hypoglycemia before next visit. MEDICATION CHANGES: Yes Diabetic Medications: Metformin 1000mg twice daily Tresiba 8 units daily in AM Novolog 10-14-12 units with meals and 2 units with snack + CF 1:30 over 140 [see chart at bottom ofnote] GFR 58 as of 02/15/24 HEALTH MAINTENANCE INTERVENTIONS: Labs: Up to Date Immunizations: due Flu and covid Foot Exam: Up to Date Eye Exam: due Annual Wellness Visit: N/A FOLLOW UP: Return to clinic in 10 weeks 06/29/2024 I spent a total of 30-39 minutes (exact time 30 mins) on the date of service in preparation, delivery, and documentation of the care provided to Ena Cano excluding any time spent in the performance of separately billed services. Yari Edmonds [facility] Clinical Pharmacist - [facility]use Co[facility] Medication Therapy Management Clinic 04/14/2024, 2:32 PM 04/14/24 Fast Acting Insulin: Novolog To find insulin [...] Sugar levels Am meal Lunch PM Meal Snack 50 to 79 8 12 10 0 80 to 109 9 13 11 1 110 to 139 10 14 12 2 140 to 169 10 14 12 2 170 to 199 11 15 13 3 200 to 229 12 16 14 4 230 to 259 13 17 15 5 260 to 289 14 18 16 6 290 to 319 15 19 17 7 320 to 349 16 20 18 8 350 to 379 17 21 19 9 380 to 409 18 22 20 10 410 to 439 19 23 21 11 440 to 469 20 24 22 12 470 to 499 21 25 23 13 500 to 529 22 26 24 14 530 to 559 23 27 25 15 560 to 589 24 28 26 16 590 to 619 25 29 27 17 620 to 649 26 30 28 18 650 to 679 27 31 29 19 680 to 709 28 32 30 20 710 to 739 29 33 31 21 740 to 769 30 34 32 22 Parameters fixed 10 14 12 2 holden 30 over 140 documented in this encounter Plan of Treatment Upcoming Encounters Date Type Department Care Team (Late st Contact Info) Description 06/29/2024 2:00 PM EST Office Visit Pharmacy, [address] [address] [facility] [address] [place] [address] 08/25/2024 9:30 AM EST Office Visit Family Practice, [place] [address] [place] [phone] Yadira Doss DO [address] [place] [address] Scheduled Procedures Name Priority Associated Diagnoses Date/Ti [...] (Patient Declined After Education) GFR 08/17/2024 02/15/2024, 09/07/2022, 12/11/2022, Additional history exists HbA1c 08/17/2024 02/15/2024, 0210/2023, 03/13/2023, Additional history exists B-12 08/26/2024 08/26/2023, 02/0 08/2022, 02/21/2021, Additional history exists CKD HGB USE SMARTSET 07048 08/26/202408/26, 08/14/2022, 02/21/2021, Additional history exists CKD PHOS USE SMARTSET 77694 08/26/2024 08/26/2023, 0 08/14/2022 Albumin/Creatinine Ratio 02/14/2025 [...] Documents on File Type Date Recorded 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
--- OUTSIDE RECORDS SUMMARY | 2024-08-13 05:36 | External Medical Summary ---
Author Name Unknown Address Unknown Organization K01:[facility] [place] - [address] [facility] [address] Laboratory Report Ordering Provider Test Date Status NICHOL PEREZ 02/15/2024 09:04:04 Final Observation Date Value Abnormality Reference (Units ) Status HbA1C 02/15/2024 09:04:04 8.5 Above high normal 4. 0-5.6 (%) Final The use of HbA1c to monitor glycemic status is based on normal hemoglobin and HbA composition. This test should not be used in patients with abnormal hemoglobin that affects the half life of the red blood cell or the in vivo glycation rates. Glucose, estimated average 02/15/2024 09:04:04 197 Above high normal <126 (mg/dL) Andriy novak Performing Location [facility] [place] - [address] [facility] [address]
--- OUTSIDE RECORDS SUMMARY | 2024-08-13 05:36 | External Medical Summary | Summary of Care ---
Author Name Unknown Organization [facility] Address [address] [place] [address] Phone [phone] Care Team Providers Care Nutrition Program Instructor Name Role Phone DevanYadira michael Alejandro BLAND Primary Care Provider [phone] Reason for Visit * Reason Comments Outpatient Testing Encounter Details Date Type Department Care Team (Late st Contact Info) Description 02/15/2024 9:10 AM EDT Laboratory Laboratory, [place] [address] [place] [address] [place] [address] [place] [address] Type 2 diabetes mellitus with hemoglobin A1c goal of less than 8.0% ([facility]); Hypothyroidism due to acquired atrophy of thyroid; Encounter for long-term (current) use of medications; Dyslipidemia, goal LDL below 100; Dyslipidemia Allergies Active Allergy Reactions Criticality Noted Date [...] not taking.Reported on 08/26/2023 FreeStyle Litzy 2 [place] Device Use as directed. Supplied by [employer] Active FreeStyle Litzy 2 Sensor Use as directed. Change every 14 days. Supplied by [employer] ( ) Active FreeStyle Litzy 2 SensorIndications:Ty [...] mRNA, LNP-s, No Pre serve, 2-Dose Series ([employer]) 08/07/2020,07/17/2020 Hepatitis B, 20+ yrs 12/12/1999,11/11/1999,10/11 Pneumococcal [...] t, High Dose, No Preserve, IM 05/03/2019 TD - Tetanus/Diptheria (ADULT) 10/11/2001,1994 TDAP, Age [...] on file documented as of this encounter Plan of Treatment Upcoming Encounters Date Type Department Care Team (Late st Contact Info) Description 04/14/2024 2:30 PM EDT Office Visit Pharmacy, [place] [address] [facility] [address] [facility] [address] [facility] [address] 08/25/2024 9:30 AM EST Office Visit Family Practice, [place] [address] [facility] [address] [facility]ad[facility] Doss DO [address] [facility] [address] Pending Results Name Type Priority Associated Diagnoses Date /Time HEMOGLOBIN A1C Lab Routine Type 2 diabetes mellitus with hemoglobin A1c goal of less than 8.0% ([facility]) 02/15/2024 9:04 AM EDT BASIC METABOLIC PANEL Lab Routine Type 2 diabetes mellitus with hemoglobin A1c goal of less than 8.0% ([facility]) 02/15/2024 9:04 AM EDT TSH WITH FREE T4 IF INDICATED Lab Routine Hypothyroidism due to acquired atrophy of thyroid Encounter for long-term (current) use of medications 02/15/2024 9:04 AM EDT LIPID PANEL WITH DIRECT LDL IF TG IS HIGH Lab Routine Dyslipidemia, goal LDL below 100 Dyslipidemia Encounter for long-term (current) use of medications 02/15/2024 9:04 AM EDT ALBUMIN / CREATININE RATIO, URINE Lab Routine Type 2 diabetes mellitus with hemoglobin A1c goal of less than 8.0% ([facility]) 02/15/2024 9:08 AM EDT Scheduled Procedures Name Priority Associated Diagnoses Date/Ti me COLONOSCOPY FLEXIBLE PROXIMAL DIAGNOSTIC Recall History of colon polyps Health Maintenance Due Date Last Done Comments Hepatitis B Vaccine (3 of 3 - 19+ 3-dose series) 04/12/2000 12/12/1999, 11/11/1999, 10/12/1999 Colonoscopy 05/04/2023 05/04/2018, 04/13, 02/07/2015, Additional history exists GFR 09/11/2023 03/13/2023, 06/0 07/2022, 08/14/2022, Additional history exists DXA Scan 12/05/2023 12/04/2020, 08/14, 03/20/2011, Additional history exists Albumin/Creatinine Ratio 12/12/2023 023, 08/26/2021, 12/30/2018, Additional history exists TSH 12/12/2023 12/11/2022, 12/12, 10/31/2020, Additional history exists COVID-19 Vaccine ( season) 2024 08/07/2020, 07/17/2020 Postponed from 03/13/2023 [...] (Patient Declined After Education) B-12 08/26/2024 08/26/2023, 0 08/2022, 02/21/2021, Additional history exists CKD HGB USE SMARTSET 54778 08/26/202408/26, 08/14/2022, 02/21/2021, Additional history exists CKD PHOS USE SMARTSET 38075 08/26/2024 08/26/2023, 0 08/14/2022 Diabetic Eye Exam [...] A1c goal of less than 8.0% (HCC) Hypothyroidism due to acquired atrophy of thyroid Encounter for long-term (current) use of medications Encounter for long-term (current) use of other medications Dyslipidemia, goal LDL below 100 Other and unspecified hyperlipidemia Dyslipidemia Other and unspecified hyperlipidemia documented in this encounter Advance Directives Documents on File Type Date Recorded 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
--- OUTSIDE RECORDS SUMMARY | 2024-08-13 05:36 | External Medical Summary ---
Author Name Unknown Address Unknown Organization K01:[facility] [place] [address] [place] [address] Laboratory Report Ordering Provider Test Date Status SAILAJA ENGEL 02/15/2024 09:04:04 Final Observation Date Value Abnormality Reference (Units ) Status TSH 02/15/2024 09:04:04 2.06 0.27-4.20 (uIU/mL) Final Performing Location LABORATORY [facility] - [address] [place] [address]
--- OUTSIDE RECORDS SUMMARY | 2024-08-13 05:36 | External Medical Summary | Summary of Care ---
Author Name Unknown Organization [facility] Address [address] [place] [address] Phone [phone] Care Team Providers Care Xerox Machine Assembler Name Role Phone Yadira Doss DO Primary Care Provider Encounter Details Date Type Department Care Team (Late st Contact Info) Description 02/15/2024 Telephone [facility] [address] [place] [address] Yadira Doss DO [address] [place] [address] Allergies Active Allergy Reactions Criticality Noted Date [...] Additional Information Patient not taking.Reported on 08/26/2023 ZAPe 2 [place] Device Use as directed. Supplied by [employer] Active FreeStyle Litzy 2 Sensor Use as directed. Change every 14 days. Supplied by [employer] ( ) Active FreeStyle Litzy 2 SensorIndications:Ty [...] mRNA, LNP-s, No Pre serve, 2-Dose Series (OptMed) 08/07/2020,07/17/2020 Pneumococcal Conjugate Vacc, 13 Valent (Prevnar) [...] encounter Miscellaneous Notes * Telephone Encounter - Erica Hernandez OSA - 02/15/2024 8:58 AM EDT 02/15/24 Upon checkout, pt needed a 3 mth rtrn appt. The earliest appt available was Aug 25. Please call and advise pt on an earlier appt if needed sooner than August. documented in this encounter Plan of Treatment Upcoming Encounters Date Type Department Care Team (Late st Contact Info) Description 04/14/2024 2:30 PM EDT Office Visit Pharmacy, [place] [address] [address] [facility] [address] [address] 08/25/2024 9:30 AM EST Office Visit Family [facility], [place] [address] [id number] Yadira Doss DO [address] [address] Scheduled Procedures Name Priority Associated Diagnoses Date/Ti [...] (Patient Declined After Education) B-12 08/26/2024 08/26/2023, 02/0 08/2022, 02/21/2021, Additional history exists CKD HGB USE SMARTSET 06886 08/26/202408/26, 08/14/2022, 02/21/2021, Additional history exists CKD PHOS USE SMARTSET 30479 08/26/2024 08/26/2023, 0 08/14/2022 Diabetic Eye Exam [...] Documents on File Type Date Recorded Patient Fiscal Officer Expl anation Advance Directives and Living Will 10/21/2022 ADVANCE DIRECTIVE / LIVING WILL Power of Strategy Manager 10/21/2022 POWER OF A TTORNEY * No Code Status (Latest Code Status on File) Date Activated Date Inactivated Comments 01/11/2004 9:29 AM 01/11/2004 9:29 AM Care Teams Xerox Machine Assembler Relationship Specialty Start Date End Date Yadira Doss DO [address] [place] [id number] PCP - General Family Medicine 08/14/22 documented as of this encounter
--- OUTSIDE RECORDS SUMMARY | 2024-08-13 05:36 | External Medical Summary | Summary of Care ---
Author Name Unknown Organization [facility] Address [address] [place] [address] Phone [phone] Care Team Providers Care Oil Burner Journeyman Name Role Phone DevanYadira michael Alejandro BLAND Primary Care Provider [phone] Reason for Visit * Reason Comments Outpatient Testing Encounter Details Date Type Department Care Team (Late st Contact Info) Description 02/15/2024 9:10 AM EDT Laboratory Laboratory, [place] [address] [place] [address] [place] [address] [place] [address] Type 2 diabetes mellitus with hemoglobin A1c goal of less than 8.0% ([facility]); Hypothyroidism due to acquired atrophy of thyroid; [...] not taking.Reported on 08/26/2023 FreeStyle Litzy 2 [place] Device Use as directed. Supplied by [employer] Active FreeStyle Litzy 2 Sensor Use as directed. Change every 14 days. Supplied by [employer] ( ) Active FreeStyle Litzy 2 SensorIndications:Ty [...] mRNA, LNP-s, No Pre serve, 2-Dose Series ([employer]) 08/07/2020,07/17/2020 Hepatitis B, 20+ yrs 12/12/1999,11/11/1999,10/11 Pneumococcal [...] 04/14/2024 2:30 PM EDT Office Visit Pharmacy, [place] [address] [facility] [address] [place] [facility] [address] [facility] [address] 08/25/2024 9:30 AM EST Office Visit Family Practice, [place] [address] [facility] [phone] Yadira Doss DO [address] [facility] [address] Pending Results Name Type Priority Associated Diagnoses Date /Time HEMOGLOBIN A1C Lab Routine Type 2 diabetes mellitus with hemoglobin A1c goal of less than 8.0% ([facility]) 02/15/2024 9:04 AM EDT BASIC METABOLIC PANEL Lab Routine Type 2 diabetes mellitus with hemoglobin A1c goal of less than 8.0% ([facility]) 02/15/2024 9:04 AM EDT TSH WITH FREE [...] hemoglobin A1c goal of less than 8.0% ([facility]) 02/15/2024 9:08 AM EDT Scheduled Procedures Name [...] Additional history exists CKD HGB USE SMARTSET 80983 08/26/202408/26, 08/14/2022, 02/21/2021, Additional history exists CKD PHOS USE SMARTSET 91195 08/26/2024 08/26/2023, 0 08/14/2022 Diabetic Eye Exam [...] Documents on File Type Date Recorded Patient Configuration Consultant Expl anation Advance Directives and Living Will 10/21/2022 ADVANCE DIRECTIVE / LIVING WILL Power of Calender Inspector 10/21/2022 POWER OF A TTORNEY * No Code Status (Latest Code Status on File) Date Activated Date Inactivated Comments 01/11/2004 9:29 AM 01/11/2004 9:29 AM Care Teams Oil Burner Journeyman Relationship Specialty Start Date End Date Yadira Doss DO [address] [place] [facility] [place] [facility] [place] [address] PCP - General Family Medicine 08/14/22 documented as of this encounter
--- OUTSIDE RECORDS SUMMARY | 2024-08-13 05:36 | External Medical Summary ---
Author Name Unknown Address Unknown Organization [id number]:[facility] [place] [address] [address] Laboratory Report Ordering Provider Test Date Status SAILAJA ENGEL 02/15/2024 09:04:04 Final Observation Date Value Abnormality Reference (Units ) Status Triglyceride 02/15/2024 09:04:04 131 <=174 ( mg/dL) Final Triglyceride Reference Range s (mg/dL):
<150 Acceptable
150-174 Borderline high
175-499 High
>=500 Very high Cholesterol 02/15/2024 09:04:04 143 <200 (mg /dL) Final Total Cholesterol Reference Ranges (mg/dL):
<200 Desirable
200-239 Borderline high
>=240 High HDL 02/15/2024 09:04:04 52 >49 (mg/dL ) Final HDL Cholesterol Reference Ra nges (mg/dL):
>=60 High (Desirable)
<50 Low (Undesirable) For Females
<40 Low (Undesirable) For Males NON-HDL CHOLESTEROL 02/15/2024 09:04:04 91 <=159 (mg/dL) Final Non-HDL Cholesterol Referenc e Range (mg/dL):
<100 Target level for high risk ASCVD patient
<130 Optimal for general population
130-159 Near optimal for general population
160-189 Borderline High
190-219 High
>=220 Very High LDL, (calculated) 02/15/2024 09:04:04 65 <= 129 (mg/dL) Final LDL Cholesterol Reference Ra nges (mg/dL):
<70 Target level for high risk ASCVD patient
<100 Optimal for general population
100-129 Near optimal for general population
130-159 Borderline high
160-189 High
>=190 Very high Performing Location [facility] [place] [address] [facility] [address]
--- OUTSIDE RECORDS SUMMARY | 2024-08-13 05:36 | External Medical Summary ---
Author Name Unknown Address Unknown Organization K01:[facility] [place] [address] [place] [address] Laboratory Report Ordering Provider Test Date Status NICHOL PEREZ 02/15/2024 09:04:04 Final Observation Date Value Abnormality Reference (Units ) Status BUN 02/15/2024 09:04:04 19 6-20 (mg/dL) Final Creatinine 02/15/2024 09:04:04 1.0 0.5-1.0 (mg/dL) Final Glomerular filtration rate/1.73 sq M.predicted [Volume Rate/Area] in Serum, Plasma or Blood by Creatinine-based formula (CKD-EPI) 02/15/2024 09:04:04 58 Below low normal >=60 (mL/min) Final eGFR is calculated based on the CKD-EPI 2020 equation. Sodium 02/15/2024 09:04:04 140 135-146 (m mol/L) Final Potassium 02/15/2024 09:04:04 4.4 3.5-5.1 (m mol/L) Final Cl 02/15/2024 09:04:04 100 98-107 (mm ol/L) Final CO2 02/15/2024 09:04:04 27 22-32 (mmo l/L) Final Anion gap 02/15/2024 09:04:04 13 7-15 (mmol /L) Final Glucose 02/15/2024 09:04:04 132 Above high normal 70 -120 (mg/dL) Final Calcium 02/15/2024 09:04:04 10.1 8.4-10.2 ( mg/dL) Final Performing Location [facility] [place] - [address] [place] [address]
--- NOTE | 2024-08-13 07:27 | Electrocardiogram Report ---
Test Reason : Blood Pressure : */* mmHG Vent. Rate : 117 BPM Atrial Rate : 117 BPM P-R Int : 148 ms QRS Dur : 90 ms QT Int : 340 ms P-R-T Axes : 54 -7 54 degrees QTcB Int : 474 ms Sinus tachycardia Poor R wave progression, consider anterior NV vs. lead placement vs. LVH Abnormal ECG No previous ECGs available Confirmed by David Castro ([id number]) on 08/13/2024 7:27:08 AM Referred By: REFERRED SELF Confirmed By: David Castro
[2024-08-13] MEDS ORDERED: DEXTROSE 50% 50 ML SYRINGE IV PRN (08:04)
[2024-08-13] MEDS ORDERED: ACETAMINOPHEN 325 MG TAB PO PRN (08:04)
[2024-08-13] MEDS ORDERED: GLUCOSE 10 TAB/TUBE PO PRN (08:04)
[2024-08-13] MEDS ORDERED: ONDANSETRON INJ 2 MG/ML 2 ML VIAL IV PRN (08:04)
[2024-08-13] MEDS ORDERED: GLUCAGON FOR INJ 1 MG VIAL SQ PRN (08:04)
[2024-08-13] MEDS ORDERED: NITROGLYCERIN SL 0.4 MG/TAB TAB SL PRN (08:04)
[2024-08-13] MEDS ORDERED: GLUCOSE 40% GEL 15 GM TUBE PO PRN (08:04)
[2024-08-13] MEDS ORDERED: CARBOHYDRATES FOR HYPOGLYCEMIA PO PRN (08:04)
[2024-08-13] MEDS: INSULIN ASPART PER UNIT CHARGE SC SCH (09:21)
[2024-08-13 10:08] LABS: Basophils # (auto) 0.02 K/uL (0.00-0.20); Basophils % (auto) 0.1 %; Eosinophils # (auto) 0.04 K/uL (0.00-0.50); Eosinophils % (auto) 0.3 %; Hematocrit (blood only) 36.9 % (37.0-47.0); Hemoglobin 12.4 g/dl (12.0-16.0); Immature Granulocytes # (auto) 0.05 K/uL (0.01-0.20); Immature Granulocytes % (auto) 0.3 %; Lymphocytes # (auto) 1.09 K/uL (1.20-3.40); Lymphocytes % (auto) 7.5 %; Mean Corpuscular Hemoglobin 28.8 pg (25.0-34.0); Mean Corpuscular Hgb Conc 33.6 g/dL (32.0-36.0); Mean Corpuscular Volume 85.6 fL (80.0-100.0); Mean Platelet Volume 10.6 fL (9.4-12.4); Monocytes # (auto) 0.67 K/uL (0.11-0.59); Monocytes % (auto) 4.6 %; Neutrophils # (auto) 12.72 K/uL (1.40-6.50); Neutrophils % (auto) 87.2 %; Platelet Count 255 K/uL (130-400); RDW Coefficient of Variation 13.2 % (11.5-14.5); RDW Standard Deviation 41.5 fL (36.4-46.3); Red Blood Count 4.31 M/uL (4.20-5.40); White Blood Count 14.59 K/ul (4.8-10.8)
[2024-08-13] MEDS: PANTOprazole 40 MG TAB PO SCH (10:18)
[2024-08-13] MEDS: LEVOTHYROXINE SODIUM 75 MCG TABLET PO SCH (10:18)
[2024-08-13] MEDS: ATORVASTATIN 40 MG TAB PO SCH (10:19)
[2024-08-13] MEDS: ENOXAPARIN INJ 40 MG/0.4 ML SYR SQ SCH (10:19)
[2024-08-13] MEDS: LOSARTAN POTASSIUM 25 MG TAB PO SCH (10:19)
[2024-08-13] MEDS: SODIUM CHLORIDE 0.9% 1,000 ML IV SCH (10:22)
[2024-08-13 10:27] LABS: Albumin Level 4.2 gm/dl (3.4-5.0); BUN Creatinine Ratio 15.3 (10-20); Bilirubin Direct 0.1 mg/dl (0-0.2); Bilirubin,Total 0.9 mg/dl (0.2-1.0); Creatinine Clr Calc Pharmacy 52.3 ml/min; Magnesium 2.3 mg/dl (1.7-2.4); Phosphorus 3.1 mg/dl (2.5-4.9); Potassium 4.4 mmol/L (3.5-5.1); Total Protein 6.8 gm/dl (6.0-8.3)
[2024-08-13] MEDS: LANTUS PER UNIT CHARGE SC SCH (10:31)
[2024-08-13] MEDS: REMDESIVIR 200 MG in SODIUM CHLORIDE 0.9% 210 ML IV STA (10:32)
--- NOTE | 2024-08-13 10:39 | Ultrasound Report ---
EXAM: US Abdomen Limited Right Upper Quadrant INDICATION: Nausea. COVID-positive. TECHNIQUE: Real-time ultrasound of the right upper quadrant with image documentation. COMPARISON: CT abdomen 08/12/2024 FINDINGS: Liver: Smooth cortical contour. No mass. No intrahepatic bile duct dilation. Gallbladder: No gallstones, wall thickening or surrounding fluid. Common bile duct: Common bile duct upper normal for age of roughly 8 mm. There is a possible 4 mm distal stone. No dilation. Pancreas: No significant abnormality noted. Right kidney: 9.0 cm long. Normal cortical thickness and echotexture. There is a 7 x 6 mm echogenic nodule in the anterior cortex of the mid to lower pole. No stone or hydronephrosis. IMPRESSION: 1. Common bile duct upper normal for age of roughly 8 mm. There is a possible 4 mm distal stone. Consider MRCP. 2. No sonographically evident gallstones or acute cholecystitis. 3. There is a 6 x 7 mm echogenic nodule in the right kidney. Reviewing the CT I do not see a definite cortical angiomyolipoma or enhancing mass. It appears distant from fat in the renal pelvis. This could also be evaluated at the time of MRCP if performed. ACT 112: Negative or not required by law. Electronically signed by Jackie Brooke 08-13-2024 10:38 AM
[2024-08-13] MEDS: CHLORTHALIDONE 25 MG TAB PO SCH (12:12)
--- NOTE | 2024-08-13 17:25 | Communication Note ---
patient seen and examined at bedside. Patient is doing well today. Discussed desire to be off oxygen before discharge. Added on incentive spirometry and Tessalon Perles to aid in this process. She was appreciative of the update and is looking forward to going home as soon as possible. Date of Service: August 13, 2024
[2024-08-13 21:39] LABS: Appearance Urine Clear (Clear); Bilirubin Urine Negative (Negative); Blood Urine Negative (Negative); Color Urine Yellow; Glucose Urine UA Negative (Negative); Ketones Urine Negative (Negative); Leukocyte Esterase Urine Negative (Negative); Nitrite Urine Negative (Negative); Protein Urine Negative (Negative); Specific Gravity Urine 1.005 (1.000-1.030); Urobilinogen Urine Negative (Negative); pH Urine 6.5 (4.5-7.5)
[2024-08-13 22:26] VITALS: O2SAT 97
[2024-08-14 03:28] VITALS: RESP 16
[2024-08-14 06:37] LABS: Hematocrit (blood only) 32.4 % (37.0-47.0); Hemoglobin 10.8 g/dl (12.0-16.0); Mean Corpuscular Hemoglobin 28.7 pg (25.0-34.0); Mean Corpuscular Hgb Conc 33.3 g/dL (32.0-36.0); Mean Corpuscular Volume 86.2 fL (80.0-100.0); Mean Platelet Volume 10.8 fL (9.4-12.4); Platelet Count 216 K/uL (130-400); RDW Coefficient of Variation 13.1 % (11.5-14.5); RDW Standard Deviation 41.1 fL (36.4-46.3); Red Blood Count 3.76 M/uL (4.20-5.40); White Blood Count 7.47 K/ul (4.8-10.8)
[2024-08-14 07:07] LABS: BUN Creatinine Ratio 19.6 (10-20); Calcium 8.8 mg/dl (8.6-10.3); Creatinine Clr Calc Pharmacy 55.8 ml/min; Potassium 4.4 mmol/L (3.5-5.1)
[2024-08-14 11:10] VITALS: BP 164/81; TEMP 98.2
[2024-08-14] MEDS: REMDESIVIR 100 MG in SODIUM CHLORIDE 0.9% 230 ML IV SCH (12:28)
[2024-08-14 14:12] VITALS: PULSE 92
--- NOTE | 2024-08-14 17:14 | Discharge Summary ---
Discharge Summary Date of Service August 14, 2024 Principal Dx & Hospital Course #1 = Principal Diagnosis (1) COVID-19: 79-year-old female with past medical history significant for type 2 diabetes, dyslipidemia, hypothyroidism, hypertension, GERD, history of acquired esophageal ring, CKD stage III, comes because of nausea and found to have COVID and also hypomagnesia. Patient says since last Thursday she is having cold symptoms. She was feeling cold, initially couple of days had runny nose and started having cough. Denies any fever. And today she was feeling chills and nauseous and sick to her stomach and came to the ER. Denies any headache. No body ache. No blurred vision. No earache or runny nose or sore throat. Appetite is okay. Denies chest pain or shortness of breath. No abdominal pain. Normal bowel and bladder movements. Currently resting comfortably and hemodynamically stable. COVID -Came with nausea and congestion -Cough -CTA chest okay Plan: -on room air, ok for discharge Hypomagnesia -replenished Leukocytosis -2/2 COVID Type 2 diabetes -Continue home Tresiba 8 units daily -Hold metformin -Sliding scale Hypertension -On losartan, chlorthalidone -Will monitor Hyperlipidemia -On statin Hypothyroidism -On Synthyroid GERD -On omeprazole CKD stage III -Presented creatinine 0.9 -Will follow repeat labs Notes For Next Care Provider 79-year-old female with hypothyroidism and hyperlipidemia who presented for having cold-like symptoms. In the ED found to have COVID and requiring 2 L of oxygen. Admitted to medicine for further workup. On medicine remdesivir was given. Patient was also given some fluids. Next day was much improved and off of oxygen, ambulating well. Patient is at her baseline per patient. Medically stable for discharge Medication Changes From Visit -none Admission HPI Per Admitting Provider 79-year-old female with past medical history significant for type 2 diabetes, dyslipidemia, hypothyroidism, hypertension, GERD, history of acquired esophageal ring, CKD stage III, comes because of nausea and found to have COVID and also hypomagnesia. Patient says since last Thursday she is having cold symptoms. She was feeling cold, initially couple of days had runny nose and started having cough. Denies any fever. And today she was feeling chills and nauseous and sick to her stomach and came to the ER. Denies any headache. No body ache. No blurred vision. No earache or runny nose or sore throat. Appetite is okay. Denies chest pain or shortness of breath. No abdominal pain. Normal bowel and bladder movements. Currently resting comfortably and hemodynamically stable. Past med history. As mentioned above Past surgical history. Colonoscopy. Colonoscopy with biopsy. EGD with biopsy. Social history. Lives with a friend. Smoked 0.2 packs a day for 10 years. Alcohol rarely. No drug use. Family history. Mother had rectal cancer. Father had sudden MD at age 53. Discharge Exam Gen: A&O 3 NAD HEENT: NCAT, EOMI, not icteric. External ears normal. No rhinorrhea. Moist mucous membranes. Neck: Supple, full range of motion, no observable masses, No meningeal sign. Lungs: No Respiratory distress. CV: RRR, no edema. Abdomen: Soft, nondistended, No rebound tenderness. MSK: No joint swelling, no redness. Skin: No rashes, petechiae, lesions. Normal color per patient. Neuro: Normal Gait, Grossly intact. Psych: Appropriate for situation. Updated Medication List Medication Instructions Recorded Confirmed Type atorvastatin 40 mg tablet 40 mg PO DAILY 08/13/24 08/13/24 History chlorthalidone 25 mg tablet 25 mg PO DAILY 08/13/24 08/13/24 History insulin aspart U-100 100 unit/mL 1 sliding scale dose subcut UD 08/13/24 08/13/24 History (3 mL) subcutaneous pen (Novolog FlexPen U-100 Insulin aspart) insulin degludec 100 unit/mL (3 8 unit subcut DAILY 08/13/24 08/13/24 History mL) subcutaneous pen (Tresiba FlexTouch U-100 insulin) levothyroxine 75 mcg tablet 75 mcg PO DAILY 08/13/24 08/13/24 History losartan 25 mg tablet 25 mg PO DAILY 08/13/24 08/13/24 History metformin 1,000 mg tablet 1,000 mg PO BID 08/13/24 08/13/24 History omeprazole 20 mg capsule,delayed 20 mg PO DAILY 08/13/24 08/13/24 History release Hospital Stay Data Consultations 08/13/24 02:31 ED Decision to Admit Stat Diagnostic Imagining Performed 08/12/24 21:44 CT Abd and Pelvis [CT abd pelvis IV con only] Stat CT angio chest PE protocol Stat 08/13/24 08:04 US gallbladder Urgent Pending Results Patient Have Any Pending Studies at Discharge: No Discharge Instructions Given to Patient (Per Discharging Provider) 1. Please gradually increase your activity. 2. Stay hydrated. Total Time Total Time Spent Total Time Spent (In Minutes): I spent a total of 35 minutes in direct patient care, including [id number] time with the patient and/or family, reviewing medical records, ordering and reviewing diagnostic tests, and coordinating care with other healthcare providers. This time includes: history taking, physical examination, medical decision making, counseling, ECG interpretation, imaging interpretation, lab interpretation, orders, and education, excluding time spent in the performance of separately billed services.
[2024-08-16 12:04] LABS: Estimated Average Glucose 220 mg/dl; Hemoglobin A1C 9.3 % (4.5-5.6)
== END 2024-08-14 16:17 | disposition home or self-care (01) | DRG 179 ==
LOC: ED 20:07 → EDINP 08-13 04:58 → 2W 08-13 08:04